=== PATIENT | male | born 2000 | race Caucasian/White ===

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

== ENCOUNTER 2021-06-29 23:15 | Emergency (ER) | payer MEDICAID, SELFPAY ==
[2021-06-29 23:16] VITALS: BP 141/96; PULSE 76; RESP 18; TEMP 36.9; O2SAT 96; BMI 29.3
--- NOTE | 2021-06-29 23:25 | EDS_ITS ---
HPI History of Present Illness Chief Complaint: Ear Problem Informant: patient Onset/Context/Timing Onset: Today Context: Gradual Onset Current Severity: Moderate Maximum Severity: Moderate Narrative Narrative: Patient presents with right ear pain that started approximately 3 hours ago. He denies any other URI symptoms. No trauma to his ear. PFSH PFSH no medical history Home Medications amoxicillin-pot clavulanate [Augmentin] 1 tab PO Q12H #20 tab 06/29/21 [Rx Last Taken Unknown] Allergy/AdvReac Type Severity Reaction Status Date / Time No Known Allergies Allergy Verified 06/29/21 23:18 ROS ROS ED Constitutional Constitutional ED: Denies chills or fever(s) Eyes Eyes: Denies change in vision ENT ENT ED: Reports ear pain right; Denies sore throat Cardiovascular Cardiovascular: Denies chest pain Respiratory/Chest Respiratory/Chest: Denies cough or dyspnea Gastrointestinal Gastrointestinal: Denies abdominal pain, diarrhea, nausea or vomiting Genitourinary Genitourinary ED: Denies dysuria Musculoskeletal Musculoskeletal: Denies back pain Integumentary Denies rash Neurologic Neurologic: Denies headache(s) or weakness Allergic/Immunologic Allergic/Immunologic ED: Denies urticaria EXAM Physical Exam Const Vital Signs: 06/29/21 23:16 Temperature 98.5 F Temperature Source Temporal Pulse Rate 76 Respiratory Rate 18 Blood Pressure 141/96 H Blood Pressure Mean 111 Pulse Ox 96 Oxygen Delivery Method Room Air Positive well nourished and well developed General Appearance ED: well developed HEENT HEENT Narrative: Right TM erythematous and bulging. Left TM normal. Posterior pharynx examination shows 2+ tonsils. Uvula midline. Mild cobblestoning noted on the posterior pharynx. Patient tolerating secretions well and has a strong voice. Eyes PERRL and EOMs intact bilaterally Neck no lymphadenopathy and supple Chest Wall inspection of chest normal and palpation of chest normal Resp normal respiratory effort and clear to auscultation bilaterally Cardio regular rate and regular rhythm GI normal to inspection, nondistended, normoactive bowel sounds and non-tender Palpation: soft Neuro oriented x3 Sensorium / Orientation: alert Psych mental status grossly normal Skin no rashes or lesions noted [facility] Treatment and Re-Evaluation Comments:: Patient has evidence of otitis media on the right. He will be treated with a course of Augmentin, first dose given here. Discharge Plan Triage Chief Complaint: Ear Problem ED Provider: Halima Car Dx/Rx/DC Orders Clinical Impression: Otitis media Instructions: ED Otitis Media Antibiotic ... Prescriptions: New amoxicillin-pot clavulanate [Augmentin] 875-125 mg tablet 1 tab PO Q12H Qty: 20 RF: 0 Primary Care Provider: Isa Joseph Referrals: Isa Joseph MD [Primary Care Provider] - 1-2 Weeks Disposition Disposition: Home, Self Care
[2021-06-29] MEDS: Amox/Clavulanate 875 MG Tablet PO (23:27)
== END 2021-06-29 23:36 | disposition home or self-care (01) ==
PROVIDERS: Emergency Provider Emergency Medicine; PCP Nurse Practitioner Family
DX: H66.91 Otitis media, unspecified, right ear (principal)
CPT/HCPCS: 99283

== ENCOUNTER 2022-08-11 19:20 | Emergency (ER) | payer MEDICAID, SELFPAY ==
[2022-08-11 19:21] VITALS: BP 158/95; PULSE 61; RESP 18; TEMP 36; O2SAT 96; BMI 28.4
--- NOTE | 2022-08-11 20:41 | ED.RN ---
PT LWBS 2040
== END 2022-08-11 20:41 | disposition left against medical advice (07) ==
PROVIDERS: PCP Nurse Practitioner Family
DX: M25.512 Pain in left shoulder (principal); Z53.21 Procedure and treatment not carried out due to patient leaving prior to being seen by health care provider

== ENCOUNTER 2024-06-07 10:53 | Day surgery (SDC) | payer MEDICAID, SELFPAY ==
[2024-06-07] VITALS (10 sets, daily range): BP systolic 140–175; BP diastolic 90–114; PULSE 79–102; RESP 16–18; TEMP 36.2–36.8; O2SAT 91–98; BMI 33.2
--- NOTE | 2024-06-07 11:03 | EKG12_ITS ---
Test Reason : pre op Blood Pressure : */* mmHG Vent. Rate : 93 BPM Atrial Rate : 93 BPM P-R Int : 132 ms QRS Dur : 80 ms QT Int : 334 ms P-R-T Axes : 30 66 7 degrees QTcB Int : 415 ms Normal sinus rhythm Normal ECG No previous ECGs available Confirmed by Chacho Gill ([id number]), graphic editor KEVIN MELCHOR ([id number]) on 06/13/2024 1:08:25 PM Referred By: Jay Naik Confirmed By: Chacho Gill
[2024-06-07] MEDS: Lactated Ringers 1,000 ML 15 ML IV (11:29)
[2024-06-07] MEDS: Cefotetan 2 GM in 0.9% Normal Saline (100mL MB+) 100 ML IV (11:29)
--- NOTE | 2024-06-07 11:32 | PCM.PRE.AN2 ---
ASA Classification* ASA Classification ASA Classification: 2 (SEE WRITTEN PRE ANESTHESIA RECORD FOR FULL ASSESSMENT) Assessment & Plan Anesthesia* Anesthesia Assessment Anesthesia Assessment: Discussed sedation and/or anesthesia options, risks, benefits, and alternatives with patient/parents/legal guardian/POA. Questions invited. The patient/parents/legal guardian/POA seems to understand and agrees to proceed with anesthesia plan. Reviewed the physical assessment, medical history, allergy history and patient home medications list prior to surgery/procedure/anesthetic and documented any changes. Performed airway and anesthesia risk assessments. 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 When Was Last Pacemaker Check QUESTION #4 FULL TEXT: You/Your Family Experience fever (hyperthermia) with Anesthesia Last Oral Intake Last Oral intake: Last Oral Intake NPO since Meds taken in AM with sips of water? Meds patient instructed to take am of surgery PONV PONV - vibrator equipment tester: PONV - vibrator equipment tester Female No 06/02/24 14:03 HX of Motion Sickness No 06/02/24 14:03 HX of N/V After Surgery No 06/02/24 14:03 Non-Smoker Yes 06/02/24 14:03 Duration of Surgery greater No 06/02/24 14:03 than 60 minutes Number of Risk Factors 1 06/02/24 14:03 PONV Score Low Risk 06/02/24 14:03 Height & Weight Height & Weight: Anesthesia: Height & Weight Height 5 ft 10 in 05/31/24 08:56 Respiratory Assessment Respiratory Assessment - vibrator equipment tester: Respiratory Tract Infection Hx - vibrator equipment tester Hx Respiratory Tract Infection No 06/02/24 14:03 STOP Sleep Apnea STOP Sleep Apnea - vibrator equipment tester: STOP Sleep Apnea - vibrator equipment tester Hx Hypertension No 06/02/24 14:03 Hx Sleep Apnea No 06/02/24 14:03 CPAP BIPAP Do you snore loudly (louder No 06/02/24 14:03 than talking or can be heard Do you often feel tired/ No 06/02/24 14:03 fatigued/ sleepy during daytime? Has anyone observed you stop Yes 06/02/24 14:03 breathing during sleep? STOP Results Negative 06/02/24 14:03 QUESTION #5 FULL TEXT : Do you snore loudly (louder than talking or can be heard through closed doors)? 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 Specify any problems Hx of Preganancy in last 3 N/A 06/02/24 14:03 Months Nurse Filling Out Transfusion DSCHRIBER 06/02/24 14:03 & Questions: Date: 06/02/24 06/02/24 14:03 Time: 14:05 06/02/24 14:03 Patient unable to answer at this time (ie. confused, unrespo /Reproduction History /Reproductive History - vibrator equipment tester: /Reproductive Hx- vibrator equipment tester Hx Now No 06/02/24 14:03 Gestational Age (in weeks): EDC: Hx Hx Para Hx Section SAB No 06/02/24 14:03 Active Medications Active Medications: Current Medications Generic Name Dose Route Start Last Admin Trade Name Freq PRN Reason Stop Dose Admin Cefotetan Disodium 2 gm/ 100 mls @ 200 mls/hr 06/07/24 12:30 06/07/24 11:29 Sodium Chloride IV 06/07/24 12:59 200 mls/hr PREOP ONE Administration Lactated Ringer's 1,000 mls @ 15 mls/hr 06/07/24 11:15 06/07/24 11:29 IV 06/13/24 00:34 15 mls/hr .Q48H ROSA Administration Protocol PFSH Medical History Depression Anxiety Substance abuse Marijuana use Alcohol use Arthritis Fatty liver Injury of head and neck Gastric reflux Former smoker Asthma Hx of sinus tachycardia History of stress test Gallbladder problem Abdominal pain Left knee pain Elevated liver enzymes Abnormal biliary HIDA scan Home Medications ?Medication ?Instructions ?Recorded ?Last Taken ?Type amitriptyline 25 mg tablet 25 mg PO QHS 05/11/24 Unknown History duloxetine 30 mg capsule,delayed 30 mg PO QDAY 05/11/24 Unknown History release fluticasone propionate 44 2 puff inhalation DAILY 05/11/24 Unknown History mcg/actuation HFA aerosol inhaler cyclobenzaprine 10 mg tablet 10 mg PO DAILY PRN muscle spasm 05/15/24 Unknown History albuterol sulfate 90 mcg/actuation 2 inh inhalation DAILY 06/02/24 Unknown History aerosol inhaler (Ventolin HFA) pantoprazole 40 mg tablet,delayed 40 mg PO QAM PRN acid reflux 06/02/24 Unknown History release Allergy/AdvReac Type Severity Reaction Status Date / Time No Known Allergies Allergy Verified 06/07/24 11:28 Family History Father Heart disease Hypertension Hypercholesteremia Social History Smoking Status: Former smoker alcohol intake: never substance use type: does not use Review of Systems (Anesthesia) ROS Narrative System reviewed and no additional complaints, except as documented.
--- OUTSIDE RECORDS SUMMARY | 2024-06-07 11:44 | XMS RPT_ITS | CCD ---
Author Organization [facility] Care Team Providers Care Kindergarten Assistant Name Role Phone FRANCISCA FRENCH Primary Care Physician ( [phone] DEEP HEALTH AND SAFETY DIRECTOR-FIELD SERVICE COORDINATOR, CORRINA Luna Primary Care Physi verna DEEP HEALTH AND SAFETY DIRECTOR-FIELD SERVICE COORDINATOR, CORRINA Luna Primary Care Un available DEEP HEALTH AND SAFETY DIRECTOR-FIELD SERVICE COORDINATOR, CORRINA Luna Attending Un available DEEP HEALTH AND SAFETY DIRECTOR-FIELD SERVICE COORDINATOR, CORRINA Luna Attending Un available DEEP HEALTH AND SAFETY DIRECTOR-FIELD SERVICE COORDINATOR, CORRINA A Primary Care Un available YULIA HAYES MD Attending Unavail able DEEP HEALTH AND SAFETY DIRECTOR-FIELD SERVICE COORDINATOR, CORRINA A Primary Care Un available DEEP HEALTH AND SAFETY DIRECTOR-FIELD SERVICE COORDINATOR, CORRINA Luna Attending Un available DEEP HEALTH AND SAFETY DIRECTOR-FIELD SERVICE COORDINATOR, CORRINA A Primary Care Un available DEEP HEALTH AND SAFETY DIRECTOR-FIELD SERVICE COORDINATOR, CORRINA A Primary Care Un available DEEP HEALTH AND SAFETY DIRECTOR-FIELD SERVICE COORDINATOR, CORRINA Luna Attending Un available DEEP HEALTH AND SAFETY DIRECTOR-FIELD SERVICE COORDINATOR, CORRINA A Primary Care Un available [facility] [employer] SAFET[employer] DIRECTOR-FIELD SERVICE COORDINATOR, JEANNA Attending Unava ilable Medications Current Medications Medication Drug Class(es) Dates Sig (Normalized) Sig (Original) amitriptyline hydrochloride 25 mg oral tablet (10 sources) Tricyclic Antidepressant Start: 02-09-2024 End: 02-03-2025 amitriptyline 25 mg oral tablet Dose : 25 mg = 1 tab(s), Oral, qHS, # 90 tab(s), 3 Refill(s), Pharmacy: [facility]/pharmacy #[id number], Depression Anxiety, 177.8, cm, 02/09/24 10:03:00 EDT, Height, kg, 02/09/24 10:03:00 EDT, Dosing Weight Start Date: 02/09/24 Stop Date: 02/03/25 Status: Ordered Start: 07-03-2022 End: 12-30-2022 amitriptyline 25 mg oral tab let Dose : 25 mg = 1 tab(s), Oral, qHS, # 90 tab(s), 1 Refill(s), Pharmacy: [facility]/pharmacy #[id number], Depression Anxiety, 177.8, cm, 07/03/22 11:29:00 EST, Height Start Date: 07/03/22 Stop Date: 12/30/22 Status: Ordered benzonatate 100 mg oral capsule (3 sources) Non-narcotic Antitussive Start: 09-18-2022 take 1 capsule by mouth three times daily benzonatate 100 mg oral capsule TAKE 1 CAPSULE BY MOUTH 3 TIMES A DAY FOR 7 DAY Start Date: 09/18/22 Status: Ordered Start: 09-09-2022 End: 09-16-2022 Tessalon Perles 100 mg oral capsule Dose : 100 mg = 1 cap(s), Oral, TID, X 7 day(s), # 21 cap(s), 0 Refill(s), 09/16/22 16:27:00 EST, Cough Start Date: 09/09/22 Stop Date: 09/16/22 Status: Ordered cyclobenzaprine hydrochloride 10 mg oral tablet (7 sources) Muscle Relaxant Start: 02-09-2024 End: 04-09-2024 cyclobenzaprine 10 mg oral tablet Dose : 10 mg = 1 tab(s), Oral, TID, PRN Pain, TAKE 1 TABLET BY MOUTH THREE TIMES A DAY NEEDED X10 DAY(S)FOR MUSCLE SPASM, X 30 day(s), # 30 tab(s), 1 Refill(s), 04/09/24 10:48:00 AM EDT, Pharmacy: [facility]/pharmacy #[id number], 177.8, cm, 02/09/24 10:03:00 EDT, Height, kg, 02/09/24 10:03:00 EDT, Dosing Weight Start Date: 02/09/24 Stop Date: 04/09/24 Status: Ordered Start: 09-09-2022 End: 09-16-2022 cyclobenzaprine 10 mg oral t ablet Dose : 10 mg = 1 tab(s), Oral, TID, PRN for muscle spasm, # 21 tab(s), 0 Refill(s) Start Date: 09/09/22 Stop Date: 09/16/22 Status: Ordered Start: 05-06-2022 End: 05-13-2022 cyclobenzaprine 5 mg oral ta blet Dose : 5 mg = 1 tab(s), Oral, TID, X 7 day(s), # 21 tab(s), 0 Refill(s), 05/13/22 12:00:00 EDT Start Date: 05/06/22 Stop Date: 05/13/22 Status: Ordered diclofenac potassium 50 mg oral tablet (1 source) Nonsteroidal Anti-inflammatory Drug Start: 09-08-2021 End: 09-18-2021 diclofenac potassium 50 mg oral tablet Dose : 50 mg = 1 tab(s), Oral, TID, PRN as needed for pain, X 10 day(s), # 30 tab(s), 0 Refill(s), 09/18/21 11:09:00 EST, Pharmacy: [facility]/pharmacy #[id number], 177, cm, 09/08/21 10:46:00 EST, Height, kg, 09/08/21 10:46:00 EST, Dosing Weight Start Date: 09/08/21 Stop Date: 09/18/21 Status: Ordered DULoxetine 30 mg delayed release oral capsule (4 sources) Serotonin and Norepinephrine Reuptake Inhibitor Start: 02-09-2024 End: 02-03-2025 Cymbalta 30 mg oral delayed release capsule Dose : 30 mg = 1 cap(s), Oral, qDay, # 90 cap(s), 3 Refill(s), Pharmacy: [facility]/pharmacy #[id number], Depression Chest discomfort, 177.8, cm, 02/09/24 10:03:00 EDT, Height, kg, 02/09/24 10:03:00 EDT, Dosing Weight Start Date: 02/09/24 Stop Date: 02/03/25 Status: Ordered FLUoxetine 20 mg oral capsule (1 source) Serotonin Reuptake Inhibitor Start: 10-28-2022 End: 04-26-2023 FLUoxetine 20 mg oral capsule Dose : 20 mg = 1 cap(s), Oral, qDay, # 30 cap(s), 5 Refill(s), Pharmacy: [facility]/pharmacy #[id number], Polyarthralgia Depression, 177.8, cm, 10/28/22 7:33:00 EDT, Height Start Date: 10/28/22 Stop Date: 04/26/23 Status: Ordered 120 actuat fluticasone propionate 0.044 mg/actuat metered dose inhaler (5 sources) Corticosteroid Start: 02-09-2024 End: 08-07-2024 take 2 puff(s) by inhalation twice daily fluticasone 44 mcg/inh inhalation aerosol 2 puff(s), Inhalation, BID, # 1 EA, 5 Refill(s), Pharmacy: [facility]/pharmacy #[id number], Chronic shortness of breath, 177.8, cm, 02/09/24 10:03:00 EDT, Height, kg, 02/09/24 10:03:00 EDT, Dosing Weight Start Date: 02/09/24 Stop Date: 08/07/24 Status: Ordered Start: 10-28-2022 End: 04-26-2023 take 2 puff(s) by inhalation twice daily fluticasone CFC free 44 mcg/inh inhalation aerosol 2 puff(s), Inhalation, BID, # 1 EA, 5 Refill(s), Pharmacy: [facility]/pharmacy #[id number], Chronic shortness of breath, 177.8, cm, 10/28/22 7:33:00 EDT, Height Start Date: 10/28/22 Stop Date: 04/26/23 Status: Ordered Hydrocortisone (1 source) Corticosteroid Start: 07-03-2022 End: 07-17-2022 hydrocortisone 1% topical cream Apply 1 colten, Topical, BID, X 14 day(s), # 45 gram(s), 0 Refill(s), Pharmacy: [facility]/pharmacy #[id number], Cream, 177.8, cm, 07/03/22 11:29:00 EST, Height, 84 Start Date: 07/03/22 Stop Date: 07/17/22 Status: Ordered ibuprofen 200 mg oral tablet (11 sources) Nonsteroidal Anti-inflammatory Drug Start: 07-03-2022 take 3 tablets by mouth every six hours as needed for pain ibuprofen 200 mg oral tablet TAKE 3 TABLETS BY MOUTH EVERY 6 HOURS FOR 7 DAYS NEEDED FOR PAIN Start Date: 07/03/22 Status: Ordered Start: 05-06-2022 End: 05-13-2022 Motrin Migraine Pain 200 mg oral tablet Dose : 600 mg = 3 tab(s), Oral, q6h, PRN for pain, X 7 day(s), # 24 tab(s), 0 Refill(s), 05/13/22 12:01:00 EDT Start Date: 05/06/22 Stop Date: 05/13/22 Status: Ordered lidocaine 0.05 mg/mg medicated patch (4 sources) Antiarrhythmic, Amide Local Anesthetic Start: 09-09-2022 lidocaine 5% topical patch Apply 1 patch(es), Topical, qDay, remove patches after 12 hours, # 30 patch(es), 0 Refill(s), 82 Start Date: 09/09/22 Status: Ordered Start: 08-12-2022 End: 08-22-2022 lidocaine 5% topical patch A pply 1 patch(es), Topical, Daily, X 10 day(s), # 10 patch(es), 0 Refill(s), 84.1 Start Date: 08/12/22 Stop Date: 08/22/22 Status: Ordered naproxen 500 mg oral tablet (1 source) Nonsteroidal Anti-inflammatory Drug Start: 03-16-2023 End: 03-23-2023 naproxen 500 mg oral tablet Dose : 500 mg = 1 tab(s), Oral, BID, PRN as needed for pain, prn with food, # 20 tab(s), 0 Refill(s), 03/23/23 4:49:00 PM EDT Start Date: 03/16/23 Stop Date: 03/23/23 Status: Ordered penicillin v potassium 500 mg oral tablet (1 source) Start: 03-16-2023 End: 03-30-2023 penicillin V potassium 500 mg oral tablet Dose : 500 mg = 1 tab(s), Oral, QID, X 14 day(s), # 56 tab(s), 0 Refill(s), 03/30/23 4:48:00 PM EDT, 86.4 Start Date: 03/16/23 Stop Date: 03/30/23 Status: Ordered SUMAtriptan 50 mg oral tablet (6 sources) Serotonin-1b and Serotonin-1d Receptor Agonist Start: 07-03-2022 SUMAtriptan 50 mg oral tablet Dose : 50 mg = 1 tab(s), Oral, qDay, PRN as needed for migraine headache, 1 tab onset , may repeat in 2 hrs. MAX 4 tab(s)/24hrs, # 18 tab(s), 0 Refill(s) Start Date: 07/03/22 Status: Ordered Vitamin D2 1.25 mg (50,000 intl units) oral capsule (7 sources) Start: 02-09-2024 Vitamin D2 1.2 5 mg (50,000 intl units) oral capsule Dose : 50,000 International_Unit = 1 cap(s), Oral, qWeek, # 12 cap(s), 0 Refill(s), [id number], Vitamin D deficiency, 177.8, cm, 02/09/24 10:03:00 EDT, Height, kg, 02/09/24 10:03:00 EDT, Dosing Weight Start Date: 02/09/24 Status: Ordered Start: 08-17-2022 End: 11-15-2022 Vitamin D2 1.25 mg (50,000 i ntl units) oral capsule Dose : 50,000 International_Unit = 1 cap(s), Oral, qWeek, # 13 cap(s), 0 Refill(s), [id number], Rib pain on left side Vitamin D deficiency, 177.8, cm, 08/17/22 14:05:00 EST, Height Start Date: 08/17/22 Stop Date: 11/15/22 Status: Ordered Completed/Discontinued Medications Medication Drug Class(es) Dates Sig (Normalized) Sig (Original) albuterol MDI (90 mcg/inh) CFC free inhalation aerosol (6 sources) Start: 07-21-2023 End: 10-19-2023 take 2 puff(s) by inhalation every four hours as needed for wheezing albuterol MDI (90 mcg/inh) CFC free inhalation aerosol 2 puff(s), Inhalation, q4h, PRN as needed for wheezing, # 18 gram(s), 2 Refill(s), Pharmacy: [facility]/pharmacy #[id number], Cough Wheezing, 177.8, cm, 07/21/23 16:43:00 EST, Height, kg, 07/21/23 16:43:00 EST, Dosing Weight Start Date: 07/21/23 Stop Date: 10/19/23 Status: Ordered Start: 10-28-2022 End: 01-26-2023 take 2 puff(s) by inhalation every four hours as needed for wheezing albuterol MDI (90 mcg/inh) CFC free inhalation aerosol 2 puff(s), Inhalation, q4h, PRN as needed for wheezing, # 18 gram(s), 2 Refill(s), Pharmacy: [facility]/pharmacy #[id number], Cough Wheezing, 177.8, cm, 10/28/22 7:33:00 EDT, Height, kg, 10/28/22 7:33:00 EDT, Dosing Weight Start Date: 10/28/22 Stop Date: 01/26/23 Status: Ordered Start: 09-18-2022 End: 10-18-2022 take 2 puff(s) by inhalation every four hours as needed for wheezing albuterol MDI (90 mcg/inh) CFC free inhalation aerosol 2 puff(s), Inhalation, q4h, PRN as needed for wheezing, # 18 gram(s), 0 Refill(s), Pharmacy: [facility]/pharmacy #[id number], Cough Wheezing, 177.8, cm, 09/18/22 10:01:00 EST, Height Start Date: 09/18/22 Stop Date: 10/18/22 Status: Ordered predniSONE 10 mg oral tablet (4 sources) Start: 09-18-2022 End: 09-26-2022 prednisone 10mg tab (TAPER) Dose : 10 mg = 1 tab(s), Oral, qDay, Take 4 tabs (40mg) days 1-2, take 3 tabs (30mg) days 3-4, take 2 tabs (20mg) days 5-6, take 1 tab (10mg) days 7-8 Take with food/meal, # 20 tab(s), 0 Refill(s), Pharmacy: [facility]/pharmacy #[id number], Cough, 177.8, cm,... Start Date: 09/18/22 Stop Date: 09/26/22 Status: Ordered Start: 07-03-2022 End: 07-15-2022 prednisone 10mg tab (TAPER) Taper 40-30-20-10 x 3 days each dose, Oral, qDay, Take with food/meal, # 30 tab(s), 0 Refill(s), Pharmacy: [facility]/pharmacy #[id number], Polyarthralgia, 177.8, cm, 07/03/22 11:29:00 EST, Height Start Date: 07/03/22 Stop Date: 07/15/22 Status: Ordered Problems Problem Classification Problem Date Documented Date Episodic/Chronic Abdominal pain (1 source) Abdominal pain; Translations: [Unspecified abdominal pain] Onset: 03-26-2024 Episodic Anxiety disorders (12 sources) Anxiety 11-18-2020 Chronic Disorders of teeth and jaw (1 source) Disorder of teeth AND/OR supporting structures; Translations: [Other specified disorders of teeth and supporting structures] Onset: 03-16-2023 Episodic Essential hypertension (1 source) Essential hypertension; Translations: [Essential (primary) hypertension] Onset: 03-16-2023 Chronic Genitourinary symptoms and ill-defined conditions (12 sources) Difficulty passing urine 02-19-2021 Episodic Mood disorders (4 sources) Depressive disorder 07-21-2023 Chronic Nonspecific chest pain (4 sources) Chest discomfort 07-21-2023 Episodic Other circulatory disease (12 sources) Elevated blood pressure 02-19-2021 Episodic Other lower respiratory disease (1 source) Cough; Translations: [Cough] Onset: 09-09-2022 Episodic Other lower respiratory disease (1 source) Pleuritic pain; Translations: [Pleurodynia] Episodic Other lower respiratory disease (6 sources) Rib pain 09-18-2022 Episodic Other lower respiratory disease (4 sources) Dyspnea 07-21-2023 Episodic Other nervous system disorders (12 sources) Intolerant of heat 11-18-2020 Episodic Other non-traumatic joint disorders (10 sources) Multiple joint pain 07-03-2022 Episodic Other non-traumatic joint disorders (1 source) Shoulder joint pain; Translations: [Pain in unspecified shoulder] Onset: 08-12-2022 Episodic Other non-traumatic joint disorders (1 source) Pain in left knee; Translations: [Pain of left knee joint] Episodic Other non-traumatic joint disorders (6 sources) Knee pain 09-18-2022 Episodic Other nutritional; endocrine; and metabolic disorders (12 sources) Developmental delay 11-18-2020 Episodic Residual codes; unclassified (11 sources) Memory impairment 12-22-2021 Episodic Syncope (12 sources) Syncope 02-18-2021 Episodic Results Test Name Value Interpretation Reference Range Facility [facility] 04-20-2024 Bili Indirect 0.4 mg/dL Normal [facility] Comment on above: Performed By: #### H FP, LIP #### [address] [address] Albumin Level 4.7 G/dL Normal 3.5-5.0 [facility] Comment on above: Performed By: #### H FP, LIP #### [address] [address] Albumin/Globulin [Mass ratio] 1.5 {ratio} Normal 1.1-2.5 [facility] Comment on above: Performed By: #### H FP, LIP #### [address] [address] ALP [Catalytic activity/Vol] 76 U/L Normal 40-135 [facility] Comment on above: Performed By: #### H FP, LIP #### [address] [address] ALT [Catalytic activity/Vol] 145 U/L High 16-63 [facility] Comment on above: Performed By: #### H FP, LIP #### [address] [address] AST [Catalytic activity/Vol] 46 U/L High 10-40 [facility] Comment on above: Performed By: #### H FP, LIP #### [address] [address] Bili Direct 0.1 mg/dL Normal 0.0-0.2 [facility] Comment on above: Result Comment: Use of this assay is not recommended for patients undergoing treatment with eltrombopag due to the potential for falsely elevated results. Performed By: #### H FP, LIP #### [address] [address] Bili Total 0.5 mg/dL Normal 0.2-1.0 [facility] Comment on above: Result Comment: Use of this assay is not recommended for patients undergoing treatment with eltrombopag due to the potential for falsely elevated results. Performed By: #### H FP, LIP #### [address] [address] Globulin 3.2 G/dL Normal [facility] Comment on above: Performed By: #### H FP, LIP #### [address] [address] Total Protein 7.9 G/dL Normal 6.4-8.2 [facility] Comment on above: Performed By: #### H FP, LIP #### [address] [address] LIPon 04-20-2024 Lipase Level 27 U/L Normal 16-77 [facility] Comment on above: Performed By: #### H FP, LIP #### [address] [address] [place] HEPATOBILIARY DUCT SYSTEM IMAGINGon 03-27-2024 MI HEPATOBILIARY DUCT SYSTEM IMAGING ORIGINAL EXAMINATION: HIDA03/27/2024 1:32 pm TECHNIQUE: The patient received an intravenous injection of 5.3 mCi of Tc-99m mebrofenin (Choletec). Sequential planar images of the upper abdomen were then acquired over the next 60 minutes. An intravenous infusion of the cholecystokinin (CCK) analogue, Kinevac was then administered followed by an additional period of imaging. Computer quantification of gallbladder emptying was performed. COMPARISON: Ultrasound abdomen 02/14/2024 HISTORY: ORDERING SYSTEM PROVIDED HISTORY: Reason for Exam: gallbladder sludge, right upper abd quadrant pain EPIGASTRIC PAINELVATED ALT FINDINGS: There is prompt accumulation of activity within the liver and normal subsequent excretion via the biliary ductal system into the small bowel. The gallbladder first visualizes at about 15 minutes after radiopharmaceutical injection. Subsequent filling of the gallbladder is somewhat slow, until about 90 minutes where prominent activity seen. After stimulation, there is essentially no contraction of gallbladder or anterograde transit of activity into the small bowel. The gallbladder ejection fraction is calculated to be 8 % (normal above 35%). IMPRESSION: 1. Findings above suggesting chronic cholecystitis with delayed filling of the gallbladder and an ejection fraction of 8% after Kinevac stimulation. 2. No evidence of acute cholecystitis. 3. Patent common bile duct. 4. Normal hepatic function. I have personally reviewed the images of this examination and agree with the resident's findings and interpretation. Interpreted by: Gabriel Nielsen DO Preliminary Report By: Chacho Angelo Electronically signed By Gabriel Nielsen DO Dictated Date: 03/27/2024 1:36:37 PM Prelim Date: 03/27/2024 2:06:06 PM Sign Date: 03/27/2024 2:06:06 PM Ordering Provider: CORRINA Bell [facility] ([place]) .Auto Diffon 03-26-2024 Basophil, Absolute 0.1 10 3/mcL Normal 0.0-0.2 [facility] ([place]) Comment on above: Performed By: #### G FR, ANEU, LIP, CMP, CBC, ADMURPHY CARTER #### [address] [address] Basophils/100 WBC (Bld) 0.8 % Normal 0.0-2.5 [facility] ([place]) Comment on above: Performed By: #### G FR, ANEU, LIP, CMP, CBC, ADMURPHY CARTER #### [address] [address] Eosinophil, Absolute 0.1 10 3/mcL Normal 0.0-0.4 [facility] ([place]) Comment on above: Performed By: #### G FR, ANEU, LIP, CMP, CBC, ADMURPHY CARTER #### [address] [address] Eosinophils/100 WBC (Bld) 1.8 % Normal 0.0-7.0 [facility] ([place]) Comment on above: Performed By: #### G FR, ANEU, LIP, CMP, CBC, MURPHY CRONIN #### [address] [address] Lymphocyte, Absolute 1.6 10 3/mcL Normal 0.8-3.9 [facility] ([place]) Comment on above: Performed By: #### G FR, ANEU, LIP, CMP, CBC, ADMD EMMAW #### [address] [address] Lymphocytes/100 WBC (Bld) 24.4 % Normal 10.0-50.0 [facility] ([place]) Comment on above: Performed By: #### G FR, ANEU, LIP, CMP, CBC, MURPHY CRONIN #### [address] [address] Monocyte, Absolute 0.6 10 3/mcL Normal 0.2-1.0 [facility] ([place]) Comment on above: Performed By: #### G FR, ANEU, LIP, CMP, CBC, MURPHY CRONIN #### [address] [address] Monocytes/100 WBC (Bld) 8.7 % Normal 1.7-13.0 [facility] ([place]) Comment on above: Performed By: #### G FR, ANEU, LIP, CMP, CBC, MURPHY CRONIN #### [address] [address] Neutrophils/100 WBC (Bld) 64.3 % Normal 37.0-80.0 [facility] ([place]) Comment on above: Performed By: #### G FR, ANEU, LIP, CMP, CBCROSEANNE MDW #### [address] [address] .GFRon 03-26-2024 GFR 86 ml/min/1.73sqm Normal [facility] ([place]) Comment on above: Result Comment: GFR Population mean for , Non- Americans Ages 20-29 = 116 mL/min/1.73 sq.m. Ages 30-39 = 107 mL/min/1.73 sq.m. Ages 40-49 = 99 mL/min/1.73 sq.m. Ages 50-59 = 93 mL/min/1.73 sq.m. Ages 60-69 = 85 mL/min/1.73 sq.m. Ages 70+ = 75 mL/min/1.73 sq.m. Chronic Kidney Disease: Less than 60 mL/min/1.73 square meters End Stage Renal Disease: Less than 15 mL/min/1.73 square meters Performed By: #### G FR, ANEU, LIP, CMP, CBC, MURPHY CRONIN #### [address] [address] GFR Non- 71 ml/min/1.73sqm Normal [facility] ([place]) Comment on above: Result Comment: GFR Population mean for , Non- Americans Ages 20-29 = 116 mL/min/1.73 sq.m. Ages 30-39 = 107 mL/min/1.73 sq.m. Ages 40-49 = 99 mL/min/1.73 sq.m. Ages 50-59 = 93 mL/min/1.73 sq.m. Ages 60-69 = 85 mL/min/1.73 sq.m. Ages 70+ = 75 mL/min/1.73 sq.m. Chronic Kidney Disease: Less than 60 mL/min/1.73 square meters End Stage Renal Disease: Less than 15 mL/min/1.73 square meters Performed By: #### G FR, ANEU, LIP, CMP, CBC, MURPHY CRONIN #### [address] [address] .MDWon 03-26-2024 Monocyte Distribution Width 18.41 Normal 0.00-20.00 [facility] ([place]) Comment on above: Result Comment: For ED adult patients suspected of sepsis, MDW<=20.0 does not rule out sepsis or risk of sepsis Performed By: #### G FR, ANEU, LIP, CMP, CBC, MURPHY CRONIN #### [address] [address] .NEUABSon 03-26-2024 Neutrophil, Absolute 4.3 10 3/mcL Normal 2.9-6.2 [facility] ([place]) Comment on above: Performed By: #### G FR, ANEU, LIP, CMP, CBC, MURPHY CRONIN #### [address] [address] CBCon 03-26-2024 Erythrocyte distribution width (RBC) [Ratio] 13.1 % Normal 11.5-14.5 [facility] ([place]) Comment on above: Performed By: #### G FR, ANEU, LIP, CMP, CBC, MURPHY CRONIN #### [address] [address] Hematocrit (Bld) [Volume fraction] 42.8 % Normal 42.0-52.0 [facility] ([place]) Comment on above: Performed By: #### G FR, ANEU, LIP, CMP, CBC, MURPHY CRONIN #### [place] [address] Hgb 14.6 G/dL Normal 14.0-18.0 [facility] ([place]) Comment on above: Performed By: #### G FR, ANEU, LIP, CMP, CBC, MURPHY CRONIN #### [place] [address] MCH (RBC) [Entitic mass] 29.7 pg Normal 27.0-31.2 [facility] ([place]) Comment on above: Performed By: #### G FR, ANEU, LIP, CMP, CBC, MURPHY CRONIN #### [place] [address] MCHC 34.1 G/dL Normal 31.8-35.4 [facility] ([place]) Comment on above: Performed By: #### G FR, ANEU, LIP, CMP, CBC, MURPHY CRONIN #### [address] [address] MCV (RBC) [Entitic vol] 87.0 fL Normal 80.0-94.0 [facility] ([place]) Comment on above: Performed By: #### G FR, ANEU, LIP, CMP, CBC, MURPHY CRONIN #### [address] [address] Platelet 199 10 3/mcL Normal 130-400 [facility] ([place]) Comment on above: Performed By: #### G FR, ANEU, LIP, CMP, CBC, ROSEANNE, MURPHY #### [place] [address] Platelet mean volume (Bld) [Entitic vol] 7.5 fL Normal 7.4-10.4 [facility] ([place]) Comment on above: Performed By: #### G FR, ANEU, LIP, CMP, ROSEANNE KONG MDW #### [address] [address] RBC 4.92 10 6/mcL Normal 4.04-6.13 [facility] ([place]) Comment on above: Performed By: #### G FR, ANEU, LIP, CMP, ROSEANNE KONG MDW #### [address] [address] WBC 6.7 10 3/mcL Normal 4.6-10.8 [facility] ([place]) Comment on above: Performed By: #### G FR, ANEU, LIP, CMP, ROSEANNE KONG MDW #### [address] [address] CMPon 03-26-2024 Albumin Level 4.3 G/dL Normal 3.5-5.0 [facility] ([place]) Comment on above: Performed By: #### G FR, ANEU, LIP, CMP, ROSEANNE KONG MDW #### [address] [address] Albumin/Globulin [Mass ratio] 1.3 {ratio} Normal 1.1-2.5 [facility] ([place]) Comment on above: Performed By: #### G FR, ANEU, LIP, CMP, ROSEANNE KONG MDW #### [address] [address] ALP [Catalytic activity/Vol] 68 U/L Normal 40-135 [facility] ([place]) Comment on above: Performed By: #### G FR, ANEU, LIP, CMP, ROSEANNE KONG MDW #### [address] [address] ALT [Catalytic activity/Vol] 132 U/L High 16-63 [facility] ([place]) Comment on above: Performed By: #### G FR, ANEU, LIP, CMP, ROSEANNE KONG MDW #### [address] [address] AST [Catalytic activity/Vol] 43 U/L High 10-40 [facility] ([place]) Comment on above: Performed By: #### G FR, ANEU, LIP, CMP, CBCROSEANNE MDW #### [address] [address] Bili Total 0.7 mg/dL Normal 0.2-1.0 [facility] ([place]) Comment on above: Result Comment: Use of this assay is not recommended for patients undergoing treatment with eltrombopag due to the potential for falsely elevated results. Performed By: #### G FR, ANEU, LIP, CMP, LUANN, MURPHY CRONIN #### [address] [address] BUN/Creatinine Ratio 12 ratio Normal 7-27 [facility] ([place]) Comment on above: Performed By: #### G FR, ANEU, LIP, CMP, ROSEANNE KONG MDW #### [address] [address] Calcium [Mass/Vol] 9.3 mg/dL Normal 8.4-10.2 [facility] ([place]) Comment on above: Performed By: #### G FR, ANEU, LIP, CMP, ROSEANNE KONG MDW #### [address] [address] Chloride [Moles/Vol] 103 mmol/L Normal 98-107 [facility] ([place]) Comment on above: Performed By: #### G FR, ANEU, LIP, CMP, CBC, MURPHY CRONIN #### [address] [address] CO2 [Moles/Vol] 31 mmol/L High 22-29 [facility] [facility] ([place]) Comment on above: Performed By: #### G FR, ANEU, LIP, CMP, LUANN, MURPHY CRONIN #### [address] [address] Creatinine [Mass/Vol] 1.26 mg/dL Normal 0.70-1.30 [facility] ([place]) Comment on above: Performed By: #### G FR, ANEU, LIP, CMP, LUANN, MURPHY CRONIN #### [address] [address] Electrolyte Balance 6.0 mEq/L Normal 4.0-15.0 [facility] ([place]) Comment on above: Performed By: #### G FR, ANEU, LIP, CMP, CBC, MURPHY CRONIN #### [address] [address] Globulin 3.3 G/dL Normal [facility] ([place]) Comment on above: Performed By: #### G FR, ANEU, LIP, CMP, ROSEANNE KONG MDW #### [address] [address] Glucose [Mass/Vol] 103 mg/dL Normal 70-105 [facility] ([place]) Comment on above: Performed By: #### G FR, ANEU, LIP, CMP, LUANN, MURPHY CRONIN #### [address] [address] Potassium [Moles/Vol] 3.5 mmol/L Normal 3.5-5.1 [facility] ([place]) Comment on above: Performed By: #### G FR, ANEU, LIP, CMP, LUANN, MURPHY CRONIN #### [address] [address] Sodium [Moles/Vol] 140 mmol/L Normal 136-145 [facility] ([place]) Comment on above: Performed By: #### G FR, ANEU, LIP, CMP, ROSEANNE KONG MDW #### [address] [address] Total Protein 7.6 G/dL Normal 6.4-8.2 [facility] ([place]) Comment on above: Performed By: #### G FR, ANEU, LIP, CMP, CBC, MURPHY CRONIN #### [address] [address] Urea nitrogen [Mass/Vol] 15 mg/dL Normal 7-18 [facility] ([place]) Comment on above: Performed By: #### G FR, ANEU, LIP, CMP, CBC, MD ROSEANNEW #### [place] [id number] [place] [id number] LABORATORYOrdered By: SYSTEM SYSTEM on 03-26-2024 Albumin BCP dye [Mass/Vol] 4.3 G/dL Normal 3.5 - 5.0 G/dL AO ADM SS Albumin/Globulin [Mass ratio] 1.3 {ratio} Normal 1.1 - 2.5 ratio AO ADM SS ALP [Catalytic activity/Vol] 68 U/L Normal 40 - 135 U/L AO ADM SS ALT With P-5'-P [Catalytic activity/Vol] 132 U/L High 16 - 63 U/L AO ADM SS AST With P-5'-P [Catalytic activity/Vol] 43 U/L High 10 - 40 U/L AO ADM SS Basophil, Absolute 0.1 103/mcL Normal 0.0 - 0.2 10^3/mcL AO Workflow SS Basophils/100 WBC (Bld) 0.8 % Normal 0.0 - 2.5 % AO Workflow SS Bilirubin [Mass/Vol] 0.7 mg/dL Normal 0.2 - 1 .0 mg/dL AO ADM SS Comment on above: Interpretive Data: U se of this assay is not recommended for patients undergoing treatment with eltrombopag due to the potential for falsely elevated results. Calcium [Mass/Vol] 9.3 mg/dL Normal 8.4 - 10. 2 mg/dL AO ADM SS Chloride [Moles/Vol] 103 mmol/L Normal 98 - 10 7 mmol/L AO ADM SS CO2 [Moles/Vol] 31 mmol/L High 22 - 29 mmol/L AO ADM SS Creatinine [Mass/Vol] 1.26 mg/dL Normal 0.70 - 1.30 mg/dL AO ADM SS Electrolyte Balance 6.0 mEq/L Normal 4.0 - 15 .0 mEq/L AO ADM SS Eosinophil, Absolute 0.1 103/mcL Normal 0.0 - 0 .4 10^3/mcL AO Workflow SS Eosinophils/100 WBC (Bld) 1.8 % Normal 0.0 - 7.0 % AO Workflow SS Erythrocyte distribution width (RBC) [Ratio] 13.1 % Normal 11.5 - 14.5 % AO Workflow SS GFR/1.73 sq M.predicted among blacks MDRD (S/P/Bld) [Vol rate/Area] 86 ml/min/1.73sqm Invalid Interpretation Code AO Chemistry S Comment on above: Interpretive Data: GFR Population mean for , Non- Americans Ages 20-29 = 116 mL/min/1.73 sq.m. Ages 30-39 = 107 mL/min/1.73 sq.m. Ages 40-49 = 99 mL/min/1.73 sq.m. Ages 50-59 = 93 mL/min/1.73 sq.m. Ages 60-69 = 85 mL/min/1.73 sq.m. Ages 70+ = 75 mL/min/1.73 sq.m. Chronic Kidney Disease: Less than 60 mL/min/1.73 square meters End Stage Renal Disease: Less than 15 mL/min/1.73 square meters GFR/1.73 sq M.predicted among non-blacks MDRD (S/P/Bld) [Vol rate/Area] 71 ml/min/1.73sqm Invalid Interpretation Code AO Chemistry S Comment on above: Interpretive Data: GFR Population mean for , Non- Americans Ages 20-29 = 116 mL/min/1.73 sq.m. Ages 30-39 = 107 mL/min/1.73 sq.m. Ages 40-49 = 99 mL/min/1.73 sq.m. Ages 50-59 = 93 mL/min/1.73 sq.m. Ages 60-69 = 85 mL/min/1.73 sq.m. Ages 70+ = 75 mL/min/1.73 sq.m. Chronic Kidney Disease: Less than 60 mL/min/1.73 square meters End Stage Renal Disease: Less than 15 mL/min/1.73 square meters Globulin 3.3 G/dL Invalid Interpretation Code AO ADM SS Glucose [Mass/Vol] 103 mg/dL Normal 70 - 105 mg/dL AO ADM SS Hematocrit (Bld) [Volume fraction] 42.8 % Normal 42.0 - 52.0 % AO Workflow SS Hemoglobin (Bld) [Mass/Vol] 14.6 G/dL Normal 14.0 - 18.0 G/dL AO Workflow SS Lipase [Catalytic activity/Vol] 26 U/L Normal 16 - 77 U/L AO ADM SS Lymphocyte, Absolute 1.6 103/mcL Normal 0.8 - 3 .9 10^3/mcL AO Workflow SS Lymphocytes/100 WBC (Bld) 24.4 % Normal 10.0 - 50.0 % AO Workflow SS MCH (RBC) [Entitic mass] 29.7 pg Normal 27.0 - 31.2 pg AO Workflow SS MCHC 34.1 G/dL Normal 31.8 - 35.4 G/dL AO Workflow SS MCV (RBC) [Entitic vol] 87.0 fL Normal 80.0 - 94.0 fL AO Workflow SS Monocyte distribution width Auto (Bld) [Entitic vol] 18.41 1 Normal 0.00 - 20.00 AO Workflow SS Comment on above: Result Comment: For ED adult patients suspected of sepsis, MDW<=20.0 does not rule out sepsis or risk of sepsis Monocyte, Absolute 0.6 103/mcL Normal 0.2 - 1.0 10^3/mcL AO Workflow SS Monocytes/100 WBC (Bld) 8.7 % Normal 1.7 - 13.0 % AO Workflow SS Neutrophil, Absolute 4.3 103/mcL Normal 2.9 - 6 .2 10^3/mcL AO Workflow SS Neutrophils/100 WBC (Bld) 64.3 % Normal 37.0 - 80.0 % AO Workflow SS Platelet mean volume (Bld) [Entitic vol] 7.5 fL Normal 7.4 - 10.4 fL AO Workflow SS Platelets (Bld) [#/Vol] 199 103/mcL Normal 130 - 400 10^3/mcL AO Workflow SS Potassium [Moles/Vol] 3.5 mmol/L Normal 3.5 - 5.1 mmol/L AO ADM SS Protein [Mass/Vol] 7.6 G/dL Normal 6.4 - 8.2 G/dL AO ADM SS RBC (Bld) [#/Vol] 4.92 106/mcL Normal 4.04 - 6.1 3 10^6/mcL AO Workflow SS Sodium [Moles/Vol] 140 mmol/L Normal 136 - 145 mmol/L AO ADM SS Urea nitrogen [Mass/Vol] 15 mg/dL Normal 7 - 18 mg/dL AO ADM SS Urea nitrogen/Creatinine [Mass ratio] 12 ratio Normal 7 - 27 ratio AO ADM SS WBC (Bld) [#/Vol] 6.7 103/mcL Normal 4.6 - 10.8 10^3/mcL AO Workflow SS LIPon 03-26-2024 Lipase Level 26 U/L Normal 16-77 [facility] ([place]) Comment on above: Performed By: #### G FR, ANEU, LIP, CMP, CBC, ADIFF, MDW #### [address] [address] US ABDOMEN LIMITEDon 024 US ABDOMEN LIMITED ORIGINAL EXAMINATION: RIGHT UPPER QUADRANT ULTRASOUND 02/14/2024 11:43 am COMPARISON: None. HISTORY: ORDERING SYSTEM PROVIDED HISTORY: Reason for Exam: elevated ALT, elevated cholesterol FINDINGS: LIVER: The liver demonstrates diffuse increased echogenicity without evidence of intrahepatic biliary ductal dilatation. Liver measures 19.8 cm in greatest dimension. BILIARY SYSTEM: Gallbladder is distended contains echogenic dependent sludge. There is no gallbladder wall thickening or ultrasound Pineda sign. Common bile duct is within normal limits measuring 3.4 mm. RIGHT KIDNEY: The right kidney is grossly unremarkable without evidence of hydronephrosis. Right kidney measures 10.8 x 5.9 x 5.9 cm. There is appropriate renal cortical thickness and echotexture without hydronephrosis or stone disease. PANCREAS: Pain OTHER: No evidence of right upper quadrant ascites. IMPRESSION: 1. Diffuse fatty infiltration of the liver. 2. Gallbladder sludge without sonographic evidence for acute cholecystitis. Interpreted by: Shaheen Cosme DO Preliminary Report By: Shaheen Cosme DO Electronically signed By Shaheen Cosme DO Dictated Date: 02/14/2024 4:08:06 PM Prelim Date: 02/14/2024 4:09:41 PM Sign Date: 02/14/2024 4:09:41 PM Ordering Provider: CORRINA Bell [facility] ([place]) .Auto Diffon 02-09-2024 Basophil, Absolute 0.0 10 3/mcL Normal 0.0-0.2 [facility] ([place]) Comment on above: Performed By: #### C BC, LIPID, FT4, A1C, ADIFF, GFR, ANEU, VIDH, TSH, CMP #### [address] [address] Basophils/100 WBC (Bld) 0.4 % Normal 0.0-2.5 [facility] ([place]) Comment on above: Performed By: #### C BC, LIPID, FT4, A1C, ADIFF, GFR, ANEU, VIDH, TSH, CMP #### [address] [address] Eosinophil, Absolute 0.2 10 3/mcL Normal 0.0-0.4 [facility] ([place]) Comment on above: Performed By: #### C BC, LIPID, FT4, A1C, ADIFF, GFR, ANEU, VIDH, TSH, CMP #### [address] [address] Eosinophils/100 WBC (Bld) 2.2 % Normal 0.0-7.0 [facility] ([place]) Comment on above: Performed By: #### C BC, LIPID, FT4, A1C, ADIFF, GFR, ANEU, VIDH, TSH, CMP #### [address] [address] Lymphocyte, Absolute 1.7 10 3/mcL Normal 0.8-3.9 [facility] ([place]) Comment on above: Performed By: #### C BC, LIPID, FT4, A1C, ADIFF, GFR, ANEU, VIDH, TSH, CMP #### [address] [address] Lymphocytes/100 WBC (Bld) 23.4 % Normal 10.0-50.0 [facility] ([place]) Comment on above: Performed By: #### C BC, LIPID, FT4, A1C, ADIFF, GFR, ANEU, VIDH, TSH, CMP #### [address] [address] Monocyte, Absolute 0.6 10 3/mcL Normal 0.2-1.0 [facility] ([place]) Comment on above: Performed By: #### C BC, LIPID, FT4, A1C, ADIFF, GFR, ANEU, VIDH, TSH, CMP #### [address] [address] Monocytes/100 WBC (Bld) 8.5 % Normal 1.7-13.0 [facility] ([place]) Comment on above: Performed By: #### C BC, LIPID, FT4, A1C, ADIFF, GFR, ANEU, VIDH, TSH, CMP #### [address] [address] Neutrophils/100 WBC (Bld) 65.5 % Normal 37.0-80.0 [facility] ([place]) Comment on above: Performed By: #### C BC, LIPID, FT4, A1C, ADIFF, GFR, ANEU, VIDH, TSH, CMP #### [address] [address] .GFRon 02-09-2024 GFR 105 ml/min/1.73sqm Normal [facility] ([place]) Comment on above: Result Comment: GFR Population mean for , Non- Americans Ages 20-29 = 116 mL/min/1.73 sq.m. Ages 30-39 = 107 mL/min/1.73 sq.m. Ages 40-49 = 99 mL/min/1.73 sq.m. Ages 50-59 = 93 mL/min/1.73 sq.m. Ages 60-69 = 85 mL/min/1.73 sq.m. Ages 70+ = 75 mL/min/1.73 sq.m. Chronic Kidney Disease: Less than 60 mL/min/1.73 square meters End Stage Renal Disease: Less than 15 mL/min/1.73 square meters Performed By: #### G FR, ANEU, LIP, CMP, CBC, ADIFF, MDW #### [address] [address] GFR Non- 86 ml/min/1.73sqm Normal [facility] ([place]) Comment on above: Result Comment: GFR Population mean for , Non- Americans Ages 20-29 = 116 mL/min/1.73 sq.m. Ages 30-39 = 107 mL/min/1.73 sq.m. Ages 40-49 = 99 mL/min/1.73 sq.m. Ages 50-59 = 93 mL/min/1.73 sq.m. Ages 60-69 = 85 mL/min/1.73 sq.m. Ages 70+ = 75 mL/min/1.73 sq.m. Chronic Kidney Disease: Less than 60 mL/min/1.73 square meters End Stage Renal Disease: Less than 15 mL/min/1.73 square meters Performed By: #### G FR, ANEU, LIP, CMP, CBC, MURPHY CRONIN #### [address] [address] .NEUABSon 02-09-2024 Neutrophil, Absolute 4.7 10 3/mcL Normal 2.9-6.2 [facility] ([place]) Comment on above: Performed By: #### C BC, LIPID, FT4, A1C, ADIFF, GFR, ANEU, VIDH, TSH, CMP #### [place] [address] A1Con 02-09-2024 HbA1c (Bld) [Mass fraction] 5.3 % Normal 4.3-6.4 [facility] ([place]) Comment on above: Performed By: #### G FR, ANEU, LIP, CMP, CBC, MURPHY CRONIN #### [place] [address] CBCon 02-09-2024 Erythrocyte distribution width (RBC) [Ratio] 13.1 % Normal 11.5-14.5 [facility] ([place]) Comment on above: Performed By: #### C BC, LIPID, FT4, A1C, ADIFF, GFR, ANEU, VIDH, TSH, CMP #### [place] [address] Hematocrit (Bld) [Volume fraction] 47.5 % Normal 42.0-52.0 [facility] ([place]) Comment on above: Performed By: #### C BC, LIPID, FT4, A1C, ADIFF, GFR, ANEU, VIDH, TSH, CMP #### [place] [address] Hgb 16.3 G/dL Normal 14.0-18.0 [facility] ([place]) Comment on above: Performed By: #### C BC, LIPID, FT4, A1C, ADIFF, GFR, ANEU, VIDH, TSH, CMP #### [address] [address] MCH (RBC) [Entitic mass] 29.9 pg Normal 27.0-31.2 [facility] ([place]) Comment on above: Performed By: #### C BC, LIPID, FT4, A1C, ADIFF, GFR, ANEU, VIDH, TSH, CMP #### [address] [address] MCHC 34.3 G/dL Normal 31.8-35.4 [facility] ([place]) Comment on above: Performed By: #### C BC, LIPID, FT4, A1C, ADIFF, GFR, ANEU, VIDH, TSH, CMP #### [address] [address] MCV (RBC) [Entitic vol] 87.3 fL Normal 80.0-94.0 [facility] ([place]) Comment on above: Performed By: #### C BC, LIPID, FT4, A1C, ADIFF, GFR, ANEU, VIDH, TSH, CMP #### [address] [address] Platelet 208 10 3/mcL Normal 130-400 [facility] ([place]) Comment on above: Performed By: #### C BC, LIPID, FT4, A1C, ADIFF, GFR, ANEU, VIDH, TSH, CMP #### [address] [address] Platelet mean volume (Bld) [Entitic vol] 7.9 fL Normal 7.4-10.4 [facility] ([place]) Comment on above: Performed By: #### C BC, LIPID, FT4, A1C, ADIFF, GFR, ANEU, VIDH, TSH, CMP #### [address] [address] RBC 5.45 10 6/mcL Normal 4.04-6.13 [facility] ([place]) Comment on above: Performed By: #### C BC, LIPID, FT4, A1C, ADIFF, GFR, ANEU, VIDH, TSH, CMP #### [address] [address] WBC 7.2 10 3/mcL Normal 4.6-10.8 [facility] ([place]) Comment on above: Performed By: #### C BC, LIPID, FT4, A1C, ADIFF, GFR, ANEU, VIDH, TSH, CMP #### [address] [address] CMPon 02-09-2024 Albumin Level 4.8 G/dL Normal 3.5-5.0 [facility] ([place]) Comment on above: Performed By: #### G FR, ANEU, LIP, CMP, CBC, ADEMMA, MURPHY #### [address] [address] Albumin/Globulin [Mass ratio] 1.3 {ratio} Normal 1.1-2.5 [facility] ([place]) Comment on above: Performed By: #### G FR, ANEU, LIP, CMP, CBC, MURPHY CRONIN #### [address] [address] ALP [Catalytic activity/Vol] 77 U/L Normal 40-135 [facility] ([place]) Comment on above: Performed By: #### G FR, ANEU, LIP, CMP, CBC, MURPHY CRONIN #### [address] [address] ALT [Catalytic activity/Vol] 135 U/L High 16-63 [facility] ([place]) Comment on above: Performed By: #### G FR, ANEU, LIP, CMP, CBC, MURPHY CRONIN #### [address] [address] AST [Catalytic activity/Vol] 39 U/L Normal 10-40 [facility] ([place]) Comment on above: Performed By: #### G FR, ANEU, LIP, CMP, CBC, MURPHY CRONIN #### [address] [address] Bili Total 0.5 mg/dL Normal 0.2-1.0 [facility] ([place]) Comment on above: Result Comment: Use of this assay is not recommended for patients undergoing treatment with eltrombopag due to the potential for falsely elevated results. Performed By: #### G FR, ANEU, LIP, CMP, CBC, ROSEANNE, MURPHY #### [address] [address] BUN/Creatinine Ratio 15 ratio Normal 7-27 [facility] ([place]) Comment on above: Performed By: #### G FR, ANEU, LIP, CMP, CBC, ROSEANNE, MURPHY #### [address] [address] Calcium [Mass/Vol] 10.4 mg/dL High 8.4-10.2 [facility] ([place]) Comment on above: Performed By: #### G FR, ANEU, LIP, CMP, CBC, ROSEANNE, MURPHY #### [address] [address] Chloride [Moles/Vol] 100 mmol/L Normal 98-107 [facility] ([place]) Comment on above: Performed By: #### G FR, ANEU, LIP, CMP, CBC, ROSEANNE, MURPHY #### [address] [address] CO2 [Moles/Vol] 26 mmol/L Normal 22-29 [facility] ([place]) Comment on above: Performed By: #### G FR, ANEU, LIP, CMP, CBC, ROSEANNE, MURPHY #### [address] [address] Creatinine [Mass/Vol] 1.07 mg/dL Normal 0.70-1.30 [facility] ([place]) Comment on above: Performed By: #### G FR, ANEU, LIP, CMP, CBC, ROSEANNE, MURPHY #### [address] [address] Electrolyte Balance 13.0 mEq/L Normal 4.0-15.0 [facility] ([place]) Comment on above: Performed By: #### G FR, ANEU, LIP, CMP, CBC, ADEMMA, W #### [address] [address] Globulin 3.6 G/dL Normal [facility] ([place]) Comment on above: Performed By: #### G FR, ANEU, LIP, CMP, CBC, MURPHY CRONIN #### [address] [address] Glucose [Mass/Vol] 96 mg/dL Normal 70-105 [facility] ([place]) Comment on above: Performed By: #### G FR, ANEU, LIP, CMP, CBC, MURPHY CRONIN #### [address] [address] Potassium [Moles/Vol] 4.5 mmol/L Normal 3.5-5.1 [facility] ([place]) Comment on above: Performed By: #### G FR, ANEU, LIP, CMP, CBC, MURPHY CRONIN #### [address] [address] Sodium [Moles/Vol] 139 mmol/L Normal 136-145 [facility]) Comment on above: Performed By: #### G FR, ANEU, LIP, CMP, LUANN, MURPHY CRONIN #### [address] [address] Total Protein 8.4 G/dL High 6.4-8.2 [facility] Comment on above: Performed By: #### G FR, ANEU, LIP, CMP, CBC, MURPHY CRONIN #### [address] [address] Urea nitrogen [Mass/Vol] 16 mg/dL Normal 7-18 [facility] Comment on above: Performed By: #### G FR, ANEU, LIP, CMP, LUANN, MURPHY CRONIN #### [address] [address] FT4on 02-09-2024 Free T4 [Mass/Vol] 0.82 ng/dL Normal 0.76-1.46 [facility] ([place]) Comment on above: Performed By: #### G FR, ANEU, LIP, CMP, CBC, MURPHY CRONIN #### [address] [address] LABORATORYOrdered By: SYSTEM SYSTEM on 02-09-2024 25-hydroxyvitamin D3 [Mass/Vol] 14.3 ng/mL Invalid Interpretation Code AO ADM SS Comment on above: Interpretive Data: I nterpretive Values Based on Total 25(OH) Vitamin D: Deficient <20 ng/mL Insufficient 20 - <30 ng/mL Sufficient 30-100 ng/mL Albumin BCP dye [Mass/Vol] 4.8 G/dL Normal 3.5 - 5.0 G/dL AO ADM SS Albumin/Globulin [Mass ratio] 1.3 {ratio} Normal 1.1 - 2.5 ratio AO ADM SS ALP [Catalytic activity/Vol] 77 U/L Normal 40 - 135 U/L AO ADM SS ALT With P-5'-P [Catalytic activity/Vol] 135 U/L High 16 - 63 U/L AO ADM SS AST With P-5'-P [Catalytic activity/Vol] 39 U/L Normal 10 - 40 U/L AO ADM SS Basophil, Absolute 0.0 103/mcL Normal 0.0 - 0.2 10^3/mcL AO Workflow SS Basophils/100 WBC (Bld) 0.4 % Normal 0.0 - 2.5 % AO Workflow SS Bilirubin [Mass/Vol] 0.5 mg/dL Normal 0.2 - 1 .0 mg/dL AO ADM SS Comment on above: Interpretive Data: U se of this assay is not recommended for patients undergoing treatment with eltrombopag due to the potential for falsely elevated results. Calcium [Mass/Vol] 10.4 mg/dL High 8.4 - 10. 2 mg/dL AO ADM SS Chloride [Moles/Vol] 100 mmol/L Normal 98 - 10 7 mmol/L AO ADM SS CO2 [Moles/Vol] 26 mmol/L Normal 22 - 29 mmol/L AO ADM SS Creatinine [Mass/Vol] 1.07 mg/dL Normal 0.70 - 1.30 mg/dL AO ADM SS Electrolyte Balance 13.0 mEq/L Normal 4.0 - 15 .0 mEq/L AO ADM SS Eosinophil, Absolute 0.2 103/mcL Normal 0.0 - 0 .4 10^3/mcL AO Workflow SS Eosinophils/100 WBC (Bld) 2.2 % Normal 0.0 - 7.0 % AO Workflow SS Erythrocyte distribution width (RBC) [Ratio] 13.1 % Normal 11.5 - 14.5 % AO Workflow SS Free T4 [Mass/Vol] 0.82 ng/dL Normal 0.76 - 1. 46 ng/dL AO ADM SS GFR/1.73 sq M.predicted among blacks MDRD (S/P/Bld) [Vol rate/Area] 105 ml/min/1.73sqm Invalid Interpretation Code AO Chemistry S Comment on above: Interpretive Data: GFR Population mean for , Non- Americans Ages 20-29 = 116 mL/min/1.73 sq.m. Ages 30-39 = 107 mL/min/1.73 sq.m. Ages 40-49 = 99 mL/min/1.73 sq.m. Ages 50-59 = 93 mL/min/1.73 sq.m. Ages 60-69 = 85 mL/min/1.73 sq.m. Ages 70+ = 75 mL/min/1.73 sq.m. Chronic Kidney Disease: Less than 60 mL/min/1.73 square meters End Stage Renal Disease: Less than 15 mL/min/1.73 square meters GFR/1.73 sq M.predicted among non-blacks MDRD (S/P/Bld) [Vol rate/Area] 86 ml/min/1.73sqm Invalid Interpretation Code AO Chemistry S Comment on above: Interpretive Data: GFR Population mean for , Non- Americans Ages 20-29 = 116 mL/min/1.73 sq.m. Ages 30-39 = 107 mL/min/1.73 sq.m. Ages 40-49 = 99 mL/min/1.73 sq.m. Ages 50-59 = 93 mL/min/1.73 sq.m. Ages 60-69 = 85 mL/min/1.73 sq.m. Ages 70+ = 75 mL/min/1.73 sq.m. Chronic Kidney Disease: Less than 60 mL/min/1.73 square meters End Stage Renal Disease: Less than 15 mL/min/1.73 square meters Globulin 3.6 G/dL Invalid Interpretation Code AO ADM SS Glucose [Mass/Vol] 96 mg/dL Normal 70 - 105 mg/dL AO ADM SS HbA1c (Bld) [Mass fraction] 5.3 % Normal 4.3 - 6.4 % AO ADM SS Hematocrit (Bld) [Volume fraction] 47.5 % Normal 42.0 - 52.0 % AO Workflow SS Hemoglobin (Bld) [Mass/Vol] 16.3 G/dL Normal 14.0 - 18.0 G/dL AO Workflow SS Lymphocyte, Absolute 1.7 103/mcL Normal 0.8 - 3 .9 10^3/mcL AO Workflow SS Lymphocytes/100 WBC (Bld) 23.4 % Normal 10.0 - 50.0 % AO Workflow SS MCH (RBC) [Entitic mass] 29.9 pg Normal 27.0 - 31.2 pg AO Workflow SS MCHC 34.3 G/dL Normal 31.8 - 35.4 G/dL AO Workflow SS MCV (RBC) [Entitic vol] 87.3 fL Normal 80.0 - 94.0 fL AO Workflow SS Monocyte, Absolute 0.6 103/mcL Normal 0.2 - 1.0 10^3/mcL AO Workflow SS Monocytes/100 WBC (Bld) 8.5 % Normal 1.7 - 13.0 % AO Workflow SS Neutrophil, Absolute 4.7 103/mcL Normal 2.9 - 6 .2 10^3/mcL AO Workflow SS Neutrophils/100 WBC (Bld) 65.5 % Normal 37.0 - 80.0 % AO Workflow SS Platelet mean volume (Bld) [Entitic vol] 7.9 fL Normal 7.4 - 10.4 fL AO Workflow SS Platelets (Bld) [#/Vol] 208 103/mcL Normal 130 - 400 10^3/mcL AO Workflow SS Potassium [Moles/Vol] 4.5 mmol/L Normal 3.5 - 5.1 mmol/L AO ADM SS Protein [Mass/Vol] 8.4 G/dL High 6.4 - 8.2 G/dL AO ADM SS RBC (Bld) [#/Vol] 5.45 106/mcL Normal 4.04 - 6.1 3 10^6/mcL AO Workflow SS Sodium [Moles/Vol] 139 mmol/L Normal 136 - 145 mmol/L AO ADM SS TSH Qn 3.03 m[IU]/L Normal 0.36 - 3.74 mcIU/mL AO ADM SS Urea nitrogen [Mass/Vol] 16 mg/dL Normal 7 - 18 mg/dL AO ADM SS Urea nitrogen/Creatinine [Mass ratio] 15 ratio Normal 7 - 27 ratio AO ADM SS WBC (Bld) [#/Vol] 7.2 103/mcL Normal 4.6 - 10.8 10^3/mcL AO Workflow SS LABORATORYOrdered By: Delilah Brennan on 02-09-2024 Cholesterol [Mass/Vol] 309 mg/dL High 0 - 200 mg/dL AO ADM SS Comment on above: Interpretive Data: C holesterol Reference Interval: Less than 200 Desirable 200-239 Borderline high risk 240 and above High risk Cholesterol in HDL [Mass/Vol] 38 mg/dL Low 40 - 60 mg/dL AO ADM SS Cholesterol in LDL [Mass/Vol] 196 mg/dL High 0 - 130 mg/dL AO ADM SS Triglyceride [Mass/Vol] 374 mg/dL High 0 - 150 mg/dL AO ADM SS Comment on above: Interpretive Data: T riglyceride Reference Interval: Less than 150 Normal 150-199 Borderline high risk 200-499 High risk 500 or higher Very high risk LIPIDon 02-09-2024 Cholesterol [Mass/Vol] 309 mg/dL High 0-200 [facility] ([place] Comment on above: Result Comment: Chol esterol Reference Interval: Less than 200 Desirable 200-239 Borderline high risk 240 and above High risk Performed By: #### G FR, ANEU, LIP, CMP, CBC, ROSEANNE, W #### [address] [address] Cholesterol in HDL [Mass/Vol] 38 mg/dL Low 40-60 [facility] ([place]) Comment on above: Performed By: #### G FR, ANEU, LIP, CMP, CBC, MURPHY CRONIN #### [address] [address] Cholesterol in LDL [Mass/Vol] 196 mg/dL High 0-130 [facility] ([place]) Comment on above: Performed By: #### G FR, ANEU, LIP, CMP, CBC, ROSEANNE, W #### [address] [address] Triglyceride [Mass/Vol] 374 mg/dL High 0-150 [facility] ([place]) Comment on above: Result Comment: Trig lyceride Reference Interval: Less than 150 Normal 150-199 Borderline high risk 200-499 High risk 500 or higher Very high risk Performed By: #### G FR, ANEU, LIP, CMP, CBC, MURPHY CRONIN #### [id number] [place], [place] [address] TSHon 02-09-2024 TSH Qn 3.03 m[IU]/L Normal 0.36-3.74 [facility] ([place]) Comment on above: Performed By: #### G FR, ANEU, LIP, CMP, CBC, MURPHY CRONIN #### [address] [address] VIDHon 02-09-2024 Vit. D 25-Hydroxy 14.3 ng/mL Normal [facility] ([place]) Comment on above: Result Comment: Inte rpretive Values Based on Total 25(OH) Vitamin D: Deficient <20 ng/mL Insufficient 20 - <30 ng/mL Sufficient 30-100 ng/mL Performed By: #### G FR, ANEU, LIP, CMP, CBC, MURPHY CRONIN #### [address] [address] LABORATORYOrdered By: Noe Fabian on 09-09-2022 FLUAV RNA ОЛЬГА+probe Ql (Upper resp) Negative (09/09/22 4:41 PM) Invalid Interpretation Code Negative AO Auto Urine SS FLUBV RNA ОЛЬГА+probe Ql (Upper resp) Negative (09/09/22 4:41 PM) Invalid Interpretation Code Negative AO Auto Urine SS RSV RNA ОЛЬГА+probe Ql (Upper resp) Negative (09/09/22 4:41 PM) Invalid Interpretation Code Negative AO Auto Urine SS SARS-CoV-2 (COVID-19) RNA ОЛЬГА+probe Ql (Resp) Negative results do not preclude SARS-CoV-2 infection and should not be used as the sole basis for patient management decisions. Negative results must be combined with clinical observations, patient history, and epidemiological information.There is a risk of false negative values resulting from improperly collected, transported, or handled specimens.There is a risk of false negative values due to the presence of sequence variants in the pathogen targets of the assay, procedural errors, amplification inhibitors in specimens, or inadequate numbers of organisms for amplification.DILAN SARS-CoV-2 Assay is a Real-Time reverse-transcriptase polymerase chain reaction (RT-PCR) based qualitative in vitro diagnostic test intended for the qualitative detection of nucleic acid from the SARS-CoV-2 in nasopharyngeal swab specimens collected from individuals suspected of COVID-19 by their healthcare provider. Testing is limited to laboratories certified under the Clinical Laboratory Improvement Amendments of 1988 (CLIA), 42 U.S.C. 263a, to perform moderate and high complexity tests. Invalid Interpretation Code AO Auto Urine SS LABORATORYOrdered By: Carmelita Weaver on 07-03-2022 Albumin BCP dye [Mass/Vol] 4.9 G/dL Invalid Interpretation Code 3.5 - 5.0 G/dL AO ADM SS Albumin/Globulin [Mass ratio] 1.5 {ratio} Invalid Interpretation Code 1.1 - 2.5 ratio AO ADM SS ALP [Catalytic activity/Vol] 70 U/L Invalid Interpretation Code 40 - 135 U/L AO ADM SS ALT With P-5'-P [Catalytic activity/Vol] 50 U/L Invalid Interpretation Code 16 - 63 U/L AO ADM SS AST With P-5'-P [Catalytic activity/Vol] 25 U/L Invalid Interpretation Code 10 - 40 U/L AO ADM SS Basophil, Absolute 0.0 103/mcL Invalid Interpretation Code 0.0 - 0.2 10^3/mcL AO Workflow SS Basophils/100 WBC (Bld) 0.8 % Invalid Interpretation Code 0.0 - 2.5 % AO Workflow SS Bilirubin [Mass/Vol] 0.7 mg/dL Invalid Interpretation Code 0.2 - 1.0 mg/dL AO ADM SS Calcium [Mass/Vol] 10.4 mg/dL Invalid Interpretation Code 8.4 - 10.2 mg/dL AO ADM SS Chloride [Moles/Vol] 101 mmol/L Invalid Interpretation Code 98 - 107 mmol/L AO ADM SS CO2 [Moles/Vol] 32 mmol/L Invalid Interpretation Code 22 - 29 mmol/L AO ADM SS Creatinine [Mass/Vol] 1.31 mg/dL Invalid Interpretation Code 0.70 - 1.30 mg/dL AO ADM SS CRP [Mass/Vol] mg/dL Invalid Interpretation Code 0.0 - 0.9 mg/dL AO Chemistry S Electrolyte Balance 6.0 mEq/L Invalid Interpretation Code 4.0 - 15.0 mEq/L AO ADM SS Eosinophil, Absolute 0.2 103/mcL Invalid Interpretation Code 0.0 - 0.4 10^3/mcL AO Workflow SS Eosinophils/100 WBC (Bld) 4.1 % Invalid Interpretation Code 0.0 - 7.0 % AO Workflow SS Erythrocyte distribution width (RBC) [Ratio] 13.7 % Invalid Interpretation Code 11.5 - 14.5 % AO Workflow SS ESR 15 minute reading (Bld) [Velocity] 2 mm/hr Invalid Interpretation Code 0 - 15 mm/hr AO Man Heme SS Globulin 3.2 G/dL Invalid Interpretation Code AO ADM SS Glucose [Mass/Vol] 81 mg/dL Invalid Interpretation Code 70 - 105 mg/dL AO ADM SS HbA1c (Bld) [Mass fraction] 5.1 % Invalid Interpretation Code 4.3 - 6.4 % AO ADM SS Hematocrit (Bld) [Volume fraction] 45.4 % Invalid Interpretation Code 42.0 - 52.0 % AO Workflow SS Hemoglobin (Bld) [Mass/Vol] 15.6 G/dL Invalid Interpretation Code 14.0 - 18.0 G/dL AO Workflow SS Lymphocyte, Absolute 1.6 103/mcL Invalid Interpretation Code 0.8 - 3.9 10^3/mcL AO Workflow SS Lymphocytes/100 WBC (Bld) 27.0 % Invalid Interpretation Code 10.0 - 50.0 % AO Workflow SS MCH (RBC) [Entitic mass] 29.7 pg Invalid Interpretation Code 27.0 - 31.2 pg AO Workflow SS MCHC 34.4 G/dL Invalid Interpretation Code 31.8 - 35.4 G/dL AO Workflow SS MCV (RBC) [Entitic vol] 86.3 fL Invalid Interpretation Code 80.0 - 94.0 fL AO Workflow SS Monocyte, Absolute 0.6 103/mcL Invalid Interpretation Code 0.2 - 1.0 10^3/mcL AO Workflow SS Monocytes/100 WBC (Bld) 9.6 % Invalid Interpretation Code 1.7 - 13.0 % AO Workflow SS Neutrophil, Absolute 3.4 103/mcL Invalid Interpretation Code 2.9 - 6.2 10^3/mcL AO Workflow SS Neutrophils/100 WBC (Bld) 58.5 % Invalid Interpretation Code 37.0 - 80.0 % AO Workflow SS Platelet mean volume (Bld) [Entitic vol] 7.6 fL Invalid Interpretation Code 7.4 - 10.4 fL AO Workflow SS Platelets (Bld) [#/Vol] 212 103/mcL Invalid Interpretation Code 130 - 400 10^3/mcL AO Workflow SS Potassium [Moles/Vol] 5.0 mmol/L Invalid Interpretation Code 3.5 - 5.1 mmol/L AO ADM SS Protein [Mass/Vol] 8.1 G/dL Invalid Interpretation Code 6.4 - 8.2 G/dL AO ADM SS RBC (Bld) [#/Vol] 5.26 106/mcL Invalid Interpretation Code 4.04 - 6.13 10^6/mcL AO Workflow SS Sodium [Moles/Vol] 139 mmol/L Invalid Interpretation Code 136 - 145 mmol/L AO ADM SS TSH Qn 1.84 m[IU]/L Invalid Interpretation Code 0.36 - 3.74 mcIU/mL AO ADM SS Urea nitrogen [Mass/Vol] 20 mg/dL Invalid Interpretation Code 7 - 18 mg/dL AO ADM SS Urea nitrogen/Creatinine [Mass ratio] 15 ratio Invalid Interpretation Code 7 - 27 ratio AO ADM SS Vit. D 25-Hydroxy 12.6 ng/mL Invalid Interpretation Code AO ADM SS WBC (Bld) [#/Vol] 5.9 103/mcL Invalid Interpretation Code 4.6 - 10.8 10^3/mcL AO Workflow SS LABORATORYOrdered By: SYSTEM SYSTEM on 07-03-2022 Cobalamin (Vitamin B12) [Mass/Vol] 531 pg/mL Invalid Interpretation Code 211 - 911 pg/mL AH ADM SS Folate [Mass/Vol] 16.63 ng/mL Invalid Interpretation Code 5.38 - 24.00 ng/mL AH ADM SS GFR 84 ml/min/1.73sqm Invalid Interpretation Code AO Chemistry S GFR Non- 69 ml/min/1.73sqm Invalid Interpretation Code AO Chemistry S LABORATORYOrdered By: Marielena Bajwa on 05-06-2022 Appearance (U) Clear (05/06/22 11:27 AM) Invalid Interpretation Code Clear AO Auto Urine SS Bilirubin Ql (U) Negative (05/06/22 11:27 AM) Invalid Interpretation Code Negative AO Auto Urine SS Color (U) Yellow (05/06/22 11:27 AM) Invalid Interpretation Code AO Auto Urine SS Glucose Test strip (U) [Mass/Vol] Negative Invalid Interpretation Code Negativemg/d L AO Auto Urine SS Hemoglobin Auto test strip (U) [Mass/Vol] Negative (05/06/22 11:27 AM) Invalid Interpretation Code Negative AO Auto Urine SS Ketones Ql (U) Negative Invalid Interpretation Code Negativemg/d L AO Auto Urine SS UA Leuk Est Negative (05/06/22 11:27 AM) Invalid Interpretation Code Negative AO Auto Urine SS UA Nitrite Negative (05/06/22 11:27 AM) Invalid Interpretation Code Negative AO Auto Urine SS UA pH 6.0 (05/06/22 11:27 AM) Invalid Interpretation Code 5.0 - 8.0 AO Auto Urine SS UA Protein Negative Invalid Interpretation Code Negativemg/d L AO Auto Urine SS UA Spec Grav >=1.030 *ABN* (05/06/22 11:27 AM) Invalid Interpretation Code 1.015-1.025 AO Auto Urine SS UA Specimen Type Clean Catch (05/06/22 11:27 AM) Invalid Interpretation Code AO Auto Urine SS UA Urobilinogen 0.2 E.U./dL Invalid Interpretation Code 0.2-1.0E.U./ dL AO Auto Urine SS LABORATORYOrdered By: Lana Lawton on 09-08-2021 Basophil, Absolute 0.00 103/mcL Invalid Interpretation Code 0.00 - 0.19 10^3/mcL AO Auto Heme SS Basophils/100 WBC (Bld) 0.5 % Invalid Interpretation Code 0.0 - 2.5 % AO Auto Heme SS Eosinophil, Absolute 0.10 103/mcL Invalid Interpretation Code 0.00 - 0.40 10^3/mcL AO Auto Heme SS Eosinophils/100 WBC (Bld) 1.6 % Invalid Interpretation Code 0.0 - 7.0 % AO Auto Heme SS Erythrocyte distribution width (RBC) [Ratio] 13.4 % Invalid Interpretation Code 11.5 - 14.5 % AO Auto Heme SS Hematocrit (Bld) [Volume fraction] 42.6 % Invalid Interpretation Code 42.0 - 52.0 % AO Auto Heme SS Hemoglobin (Bld) [Mass/Vol] 14.7 G/dL Invalid Interpretation Code 14.0 - 18.0 G/dL AO Auto Heme SS Lymphocyte, Absolute 1.60 103/mcL Invalid Interpretation Code 0.77 - 3.85 10^3/mcL AO Auto Heme SS Lymphocytes/100 WBC (Bld) 30.1 % Invalid Interpretation Code 10.0 - 50.0 % AO Auto Heme SS MCH (RBC) [Entitic mass] 29.6 pg Invalid Interpretation Code 27.0 - 31.2 pg AO Auto Heme SS MCHC (RBC) [Mass/Vol] 34.5 G/dL Invalid Interpretation Code 31.8 - 35.4 G/dL AO Auto Heme SS MCV (RBC) [Entitic vol] 85.8 fL Invalid Interpretation Code 80.0 - 94.0 fL AO Auto Heme SS Monocyte, Absolute 0.50 103/mcL Invalid Interpretation Code 0.15 - 1.00 10^3/mcL AO Auto Heme SS Monocytes/100 WBC (Bld) 10.1 % Invalid Interpretation Code 1.7 - 13.0 % AO Auto Heme SS Neutrophil, Absolute 3.10 103/mcL Invalid Interpretation Code 2.85 - 6.16 10^3/mcL AO Auto Heme SS Neutrophils/100 WBC (Bld) 57.7 % Invalid Interpretation Code 37.0 - 80.0 % AO Auto Heme SS Platelet mean volume (Bld) [Entitic vol] 8.1 fL Invalid Interpretation Code 7.4 - 10.4 fL AO Auto Heme SS Platelets (Bld) [#/Vol] 228 103/mcL Invalid Interpretation Code 130 - 400 10^3/mcL AO Auto Heme SS RBC (Bld) [#/Vol] 4.96 106/mcL Invalid Interpretation Code 4.04 - 6.13 10^6/mcL AO Auto Heme SS WBC (Bld) [#/Vol] 5.30 103/mcL Invalid Interpretation Code 4.60 - 10.80 10^3/mcL AO Auto Heme SS Vital Signs Date Time Vital Sign Value Performing Clinician Alireza figueredo 03-26-2024 19:03-0400 Body temperature 97.52 [degF] YULIA HAYES MD [facility] 03-26-2024 19:03-0400 Diastolic Blood Pressure Non-Invasive 80 mm[Hg] YULIA HAYES MD [facility] 03-26-2024 19:03-0400 Heart rate 88 /min YULIA HAYES MD [facility] 03-26-2024 19:03-0400 Respiratory rate 18 /min YULIA HAYES MD [facility] 08-18-2024 19:03-0400 Systolic Blood Pressure Non-Invasive 142 mm[Hg] YULIA HAYES MD [facility] 03-16-2023 16:29-0400 Blood Pressure Cuff Size ITA HENDRICKS MD [facility] 03-16-2023 16:29-0400 Blood Pressure Location ITA HENDRICKS MD [facility] 03-16-2023 16:29-0400 Blood Pressure Method ITA HENDRICKS MD [facility] 03-16-2023 16:29-0400 Body temperature 98.6 [degF] ITA HENDRICKS MD [facility] 03-16-2023 16:29-0400 Body weight 86.4 kg ITA HENDRICKS MD [facility] 03-16-2023 16:29-0400 Diastolic Blood Pressure Non-Invasive 82 1 ITA HENDRICKS MD [facility] 03-16-2023 16:29-0400 Heart rate 74 /min ITA HENDRICKS MD [facility] 03-16-2023 16:29-0400 Respiratory rate 18 /min ITA HENDRICKS MD [facility] 03-16-2023 16:29-0400 Systolic Blood Pressure Non-Invasive 141 1 ITA HENDRICKS MD [facility] 09-09-2022 16:10-0500 Body height 178 cm SHAHEEN JORGE DO [facility] 09-09-2022 16:10-0500 Body temperature 98.96 [degF] SHAHEEN JORGE DO [facility] 09-09-2022 16:10-0500 Body weight 82 kg SHAHEEN JORGE DO [facility] 09-09-2022 16:10-0500 Diastolic Blood Pressure Non-Invasive 84 1 SHAHEEN JORGE DO [facility] 09-09-2022 16:10-0500 Heart rate 89 /min SHAHEEN JORGE DO [facility] 09-09-2022 16:10-0500 Respiratory rate 16 /min SHAHEEN JORGE DO [facility] 09-09-2022 16:10-0500 Systolic Blood Pressure Non-Invasive 131 1 SHAHEEN JORGE DO [facility] 08-12-2022 06:17-0500 Body height 177.[address] GURINDER SANTIAGO MD [facility] 08-12-2022 06:17-0500 Body temperature 98.24 [degF] DR GURINDER SANTIAGO MD [facility] 08-12-2022 06:17-0500 Body weight 84.[address] GURINDER SANTIAGO MD [facility] 08-12-2022 06:17-0500 Diastolic Blood Pressure Non-Invasive [address] GURINDER SANTIAGO MD [facility] 08-12-2022 06:17-0500 Heart rate 70 /min DR GURINDER SANTIAGO MD [facility] 08-12-2022 06:17-0500 Reason For Taking VItal Signs DR GURINDER SANTIAGO MD [facility] 08-12-2022 06:17-0500 Respiratory rate 18 /min DR GURINDER SANTIAGO MD [facility] 08-12-2022 06:17-0500 Systolic Blood Pressure Non-Invasive [address] GURINDER SANTIAGO MD [facility] 08-11-2022 17:18-0500 Body height 177.8 cm ARPIT ALMEIDA MD [facility] 08-11-2022 17:18-0500 Body temperature 98.6 [degF] ARPIT ALMEIDA MD [facility] 08-11-2022 17:18-0500 Body weight 81.8 kg ARPIT ALMEIDA MD [facility] 08-11-2022 17:18-0500 Diastolic Blood Pressure Non-Invasive 84 1 ARPIT ALMEIDA MD [facility] 08-11-2022 17:18-0500 Heart rate 86 /min ARPIT ALMEIDA MD [facility] 08-11-2022 17:18-0500 Respiratory rate 18 /min ARPIT ALMEIDA MD [facility] 08-11-2022 17:18-0500 Systolic Blood Pressure Non-Invasive 132 1 ARPIT ALMEIDA MD [facility] 05-06-2022 11:11-0400 Body temperature 98.6 [degF] DR LIVIER MANCIA MD [facility] 05-06-2022 11:11-0400 Body weight 63.[address] LIVIER MANCIA MD [facility] 05-06-2022 11:11-0400 Diastolic blood pressure 88 mm[Hg] DR LIVIER MANCIA MD [facility] 05-06-2022 11:11-0400 Heart rate 68 /min DR LIVIER MANCIA MD [facility] 05-06-2022 11:11-0400 Respiratory rate 16 /min DR LIVIER MANCIA MD [facility] 05-06-2022 11:11-0400 Systolic blood pressure 133 mm[Hg] DR LIVIER MANCIA MD [facility] Encounters Encounter Date Encounter Type Care Provider Facility Start: 04-20-2024 End: 04-20-2024 ambulatory CORRINA ADAME [employer] DIRECTOR-FIELD SERVICE COORDINATOR Facility:[facility] Start: 03-27-2024 End: 03-27-2024 ambulatory CORRINA ADAME [facility] DIRECTOR-FIELD SERVICE COORDINATOR Facility:[facility] Start: 03-27-2024 End: 03-27-2024 Patient encounter procedure CORRINA ADAME [facility] DIRECTOR-FIELD SERVICE COORDINATOR [facility] Start: 03-26-2024 End: 03-26-2024 Emergency department patient visit YULIA HAYES MD [facility] Start: 02-14-2024 End: 02-14-2024 ambulatory CORRINA ADAME [facility] DIRECTOR-FIELD SERVICE COORDINATOR Facility:[facility] Start: 02-14-2024 End: 02-14-2024 Patient encounter procedure CORRINA ADAME [facility] DIRECTOR-FIELD SERVICE COORDINATOR [facility] Start: 02-09-2024 End: 02-09-2024 ambulatory CORRINA ADAME [facility] DIRECTOR-FIELD SERVICE COORDINATOR Facility:[facility] Start: 02-09-2024 End: 02-09-2024 Patient encounter procedure CORRINA ADAME [facility] DIRECTOR-FIELD SERVICE COORDINATOR [facility] Start: 07-28-2023 ambulatory CORRINA CASTRO [facility] AND SAFET[employer] DIRECTOR-FIELD SERVICE COORDINATOR Facility:[facility] Start: 03-16-2023 End: 03-16-2023 Emergency department patient visit ITA HENDRICKS MD [facility] Start: 09-23-2022 End: 10-22-2022 Physical therapy management CORRINA ADAME [employer] DIRECTOR-FIELD SERVICE COORDINATOR [facility] Start: 09-09-2022 End: 09-09-2022 Emergency department patient visit SHAHEEN JORGE DO [facility] Start: 08-12-2022 End: 08-12-2022 Emergency department patient visit DR GURINDER SANTIAGO MD [facility] Start: 08-11-2022 End: 08-11-2022 Emergency department patient visit ARPIT ALMEIDA MD [facility] Start: 07-03-2022 End: 07-03-2022 Patient encounter procedure CORRINA ADAME [facility] DIRECTOR-FIELD SERVICE COORDINATOR [facility] Start: 05-06-2022 End: 05-06-2022 Emergency department patient visit DR LIVIER MANCIA MD [facility] Start: 09-08-2021 End: 09-08-2021 Patient encounter procedure FRANCISCA LUCERO [facility] AND SAFETY DIRECTOR-FIELD SERVICE COORDINATOR [facility] Procedures Date Procedure Procedure Detail Performing Clinician Start: 12-07-2020 Electrocardiographic monitor and recorder, device (physical object) FRANCISCA LUCERO [employer] DIRECTOR-FIELD SERVICE COORDINATOR Comment on above: SUMMARY: 1. Symptoms of FAINTED (01/01, 10:31am) associated with sinus rhythm 131 bpm. 6 transmissions for symptoms of skipped beat, lightheaded, short of breath, chest pain, heart racing, dizzy, or symptom other than listed associated with sinus rhythm 76-98 bpm. (NO arrhythmia basis for patient symptoms). 2. Sinus rhythm 52-160 bpm with mean hr 69 bpm. 3. No significant pauses seen. 4. VPC burden not tabulated due to excessive artifact; none seen on strips provided. 5. APC burden <1% all beats, in single beats. Immunizations Immunization Date Immunization Notes Care Provider Fa cility 03-06-2019 meningococcal oligosaccharide (groups A, C, Y and W-135) diphtheria toxoid conjugate vaccine (MCV4O); Translations: [Menveo] FRANCISCA LUCERO [email or web address] [facility] Comment on above: Early/Late Reason: W ithin Normal Limits 03-06-2019 varicella virus vacc ine; Translations: [Varivax] FRANCISCA LUCERO [email or web address] [facility] Comment on above: Early/Late Reason: O ther : given during OV 03-24-2014 meningococcal polysaccharide (groups A, C, Y and W-135) diphtheria toxoid conjugate vaccine (MCV4P) FRANCISCA LUCERO [employer] [facility] 03-24-2014 tetanus toxoid, redu luan diphtheria toxoid, and acellular pertussis vaccine, adsorbed FRANCISCA LUCERO [email or web address] [facility] 05-04-2006 diphtheria, tetanus toxoids and acellular pertussis vaccine, unspecified formulation FRANCISCA LUCERO [employer] [facility] 05-03-2006 DTaP-hepatitis B and poliovirus vaccine FRANCISCA LUCERO [facility] SAF[employer] DIRECTOR-FIELD SERVICE COORDINATOR [facility] 05-03-2006 haemophilus influenz ae type b vaccine, PRP-T conjugate FRANCISCA LUCERO [facility] SAF[employer] DIRECTOR-FIELD SERVICE COORDINATOR [facility] 05-03-2006 hepatitis B pediatri c vaccine FRANCISCA LUCERO [facility] SAF[employer] DIRECTOR-FIELD SERVICE COORDINATOR [facility] 05-03-2006 measles/mumps/rubell a virus vaccine FRANCISCA LUCERO [facility] S[employer] DIRECTOR-FIELD SERVICE COORDINATOR [facility] 05-03-2006 poliovirus vaccine, inactivated FRANCISCA LUCERO [facility] AND SAF[employer] DIRECTOR-FIELD SERVICE COORDINATOR [facility] 05-03-2006 varicella virus vaccine ERIKA SONG [facility] AND SAFETY DIRECTOR-FIELD SERVICE COORDINATOR [facility] 12-14-2002 diphtheria, tetanus toxoids and acellular pertussis vaccine, unspecified formulation FRANCISCA LUCERO [facility] AND SAFETY DIRECTOR-FIELD SERVICE COORDINATOR [facility] 06-19-2002 hepatitis B pediatri c vaccine FRANCISCA LUCERO [facility] AND SAFET[employer] DIRECTOR-FIELD SERVICE COORDINATOR [facility] 06-19-2002 measles/mumps/rubell a virus vaccine FRANCISCA LUCERO [facility] AND SAFETY DIRECTOR-FIELD SERVICE COORDINATOR [facility] 2001 diphtheria, tetanus toxoids and acellular pertussis vaccine, unspecified formulation FRANCISCA LUCERO [facility] AND SAFETY DIRECTOR-FIELD SERVICE COORDINATOR [facility] 2001 haemophilus influenz ae type b vaccine, PRP-T conjugate FRANCISCASALMA LUCERO [facility] AND SAFETY DIRECTOR-FIELD SERVICE COORDINATOR [facility] 2001 hepatitis B pediatri c vaccine FRANCISCASALMA LUCERO [facility] AND SAFETY DIRECTOR-FIELD SERVICE COORDINATOR [facility] 2001 poliovirus vaccine, inactivated FRANCISCA LUCERO HE[employer] AND SAFETY DIRECTOR-FIELD SERVICE COORDINATOR [facility] 2001 diphtheria, tetanus toxoids and acellular pertussis vaccine, unspecified formulation FRANCISCASALAM LUCERO [facility] AND SAFET[facility] DIRECTOR-FIELD SERVICE COORDINATOR [facility] 2001 haemophilus influenz ae type b vaccine, PRP-T conjugate FRANCISCA LUCERO [facility] AND SAFETY DIRECTOR-FIELD SERVICE COORDINATOR [facility] 2001 poliovirus vaccine, inactivated FRANCISCA LUCERO [facility] AND SAFETY DIRECTOR-FIELD SERVICE COORDINATOR [facility] 2001 diphtheria, tetanus toxoids and acellular pertussis vaccine, unspecified formulation FRANCISCA LUCERO HE[employer] AND SAFETY DIRECTOR-FIELD SERVICE COORDINATOR [facility] 2001 haemophilus influenz ae type b vaccine, PRP-T conjugate FRANCISCA LUCERO [facility] AND SAFETY DIRECTOR-FIELD SERVICE COORDINATOR [facility] 2001 poliovirus vaccine, inactivated FRANCISCA LUCERO [facility] AND SAFETY DIRECTOR-FIELD SERVICE COORDINATOR [facility] 2001 hepatitis B pediatri c vaccine FRANCISCA LUCERO [facility] AND SAFET[employer] DIRECTOR-FIELD SERVICE COORDINATOR [facility] Payers Date Payer Category Payer Unknown [id number] 2001 Unknown [id number] [id number] 2001 Unknown [id number] 2.16.8 [id number] 2001 Unknown [id number] 2.16.8 [id number] 2001 Unknown [id number] 2.16.8 [id number] 2001 Unknown [id number] 2.16.8 [id number] 2001 Unknown [id number] 2.16.8 [id number] Social History Date Type Detail Facility Start: 03-06-2019 Ex-smoker (finding) [facility] Sex Assigned At [facility] Functional Status Date Assessment Result Facility 03-26-2024 Functional Status ID band on, Call device within reach, Bed in low position [facility] 03-16-2023 Functional Status ID band on, Call device within reach, Bed in low position, Wheels locked, Upper/Half-Length side-rails up, Phone within reach, Visitor at bedside, Safety level maintained [facility] 09-09-2022 Functional Status Up ad rita [facility] 08-12-2022 Functional Status Room check performed [facility] 05-06-2022 Functional Status Standard Safet y ID band on, Call device within reach, Bed in low position, Wheels locked, Upper/Half-Length side-rails up, Bedside Cart Locked, Safety level maintained [facility] Mental Status Date Assessment Result Facility 03-26-2024 Mental Status Oriented x 4 [facility] 03-16-2023 Mental Status Oriented x 4 [facility] 09-09-2022 Mental Status Oriented x 4 [facility] 08-12-2022 Mental Status Oriented x 4 [facility] 05-06-2022 Mental Status Orientation Oriented x 4 [facility] Clinical Notes 10-18-2020 to 03-27-2024 LaboratoryRadiologyLaboratoryRadiologyLaboratoryRadiologyRadiologyRadiologyRadio logyLaboratoryRadiologyRadiologyLaboratoryRadiology Note Date & Type Note Facility 03-27-2024 Note ORIGINAL EXAMINATION: HIDA03/27/2024 1:32 pm TECHNIQUE: The patient received an intravenous injection of 5.3 mCi of Tc-99m mebrofenin (Choletec). Sequential planar images of the upper abdomen were then acquired over the next 60 minutes. An intravenous infusion of the cholecystokinin (CCK) analogue, Kinevac was then administered followed by an additional period of imaging. Computer quantification of gallbladder emptying was performed. COMPARISON: Ultrasound abdomen 02/14/2024 HISTORY: ORDERING SYSTEM PROVIDED HISTORY: Reason for Exam: gallbladder sludge, right upper abd quadrant pain EPIGASTRIC PAINELVATED ALT FINDINGS: There is prompt accumulation of activity within the liver and normal subsequent excretion via the biliary ductal system into the small bowel. The gallbladder first visualizes at about 15 minutes after radiopharmaceutical injection. Subsequent filling of the gallbladder is somewhat slow, until about 90 minutes where prominent activity seen. After stimulation, there is essentially no contraction of gallbladder or anterograde transit of activity into the small bowel. The gallbladder ejection fraction is calculated to be 8 % (normal above 35%). IMPRESSION: 1. Findings above suggesting chronic cholecystitis with delayed filling of the gallbladder and an ejection fraction of 8% after Kinevac stimulation. 2. No evidence of acute cholecystitis. 3. Patent common bile duct. 4. Normal hepatic function. I have personally reviewed the images of this examination and agree with the resident's findings and interpretation. Interpreted by: Gabriel Nielsen DO Preliminary Report By: Chacho Angelo Electronically signed By Gabriel Nielsen DO Dictated Date: 03/27/2024 1:36:37 PM Prelim Date: 03/27/2024 2:06:06 PM Sign Date: 03/27/2024 2:06:06 PM Ordering Provider: CORRINA ADAME [facility] 03-26-2024 Hospital Discharge instructions Patient Education 03/26/2024 19:50:55 Abdominal Pain, Unknown Cause, (Male) Unknown Causes of Abdominal Pain (Male) Based on your visit today, the exact cause of your abdominal pain is not clear. Your exam and tests don't suggest a dangerous cause at this time. However, the signs of a serious problem may take more time to appear. Although your evaluation was reassuring today, sometimes early in the course of many conditions, exam and lab tests can appear normal. Therefore, it is important for you to watch for any new symptoms or worsening of your condition. It may not be obvious what caused your symptoms. Pay attention to things that do seem to make your symptoms worse or better and discuss this with your doctor when you follow up. The evaluation of abdominal pain in the emergency department may only require an exam by the doctor or it may include blood, urine or imaging studies, depending on many factors. Sometimes exams and tests can identify a cause but in many cases, a clear cause is not found. Further testing at follow up visits may help to suggest a clear diagnosis. Home care Rest as much as you can until your next exam. Try to avoid any medicines (unless otherwise directed by your doctor), foods, activities, or other factors that may have contributed to your symptoms. Try to eat foods that you know that you have tolerated well in the past. Certain diets may be recommended for some conditions that cause abdominal pain. However, since the cause of your symptoms may not be clear, discuss your diet more with your healthcare provider or specialist for further recommendations. If you have diarrhea, it may help to avoid dairy (lactose) for the time being. A low fat, low fiber diet can also help. Eating several small meals per day as opposed to 2 or 3 larger meals may help. Avoid dehydration. Make sure to drink plenty of water. Other options include broth, soup, gelatin, sports drinks, or other clear liquids. Watch closely for anything that may make your symptoms worse or better. Pay close attention to symptoms below that may mean your condition is getting worse. Follow-up care Follow up with your healthcare provider if your symptoms are not improving, or as advised. In some cases, you may need more testing. When to seek medical advice Call your healthcare provider right away if any of these occur: Pain is becoming worse You are unable to take your medicines or can't keep water down due to excessive vomiting Swelling of the abdomen Fever of 100.4 F (38 C) or higher, or as directed by your healthcare provider Blood in vomit or bowel movements (dark red or black color) Jaundice (yellow color of eyes and skin) New onset of weakness, dizziness or fainting New onset of chest, arm, back, neck or jaw pain [id number] [employer] [address] [place] [address]. All rights reserved. This information is not intended as a substitute for professional medical care. Always follow your healthcare professional's instructions. Follow Up Care 03/26/2024 18:59:02 With:CORRINA ADAME Address: [address] [place] [address] [phone] When:2-4 days [facility] 03-26-2024 Note Discharge Instructions Thank you for allowing [facility] to assist you with your healthcare needs. The following is important discharge information regarding your hospital visit. Diagnosis from Today's Visit Abdominal pain What to Do Next Instructions from Your Care Team No qualifying data available. Post Acute Orders No qualifying data available. You Need to Schedule the Following Appointments Follow Up with CORRINA ADAME When:Within 2-4 days Where:[address] [place] [address] [phone] Allergies NKA Medications Please ask your primary doctor or pharmacist before taking any other medication not listed, including over the counter drugs, herbal medications, vitamins and or supplements as they may interact with your home medications. What How Much When Why Instructions Last Dose Unchanged albuterol (albuterol MDI (90 mcg/ inh) CFC free inhalation aerosol) 2 puff(s) by inhalation Every 4 hours as needed for as needed for wheezing Cough Wheezing Duration: 30 Days Unchanged amitriptyline (amitriptyline 25 mg oral tablet) 1 tab(s) by mouth Daily at bedtime Depression Anxiety Duration: 90 Days Unchanged cyclobenzaprine (cyclobenzaprine 10 mg oral tablet) 1 tab(s) by mouth Three (3) times a day as needed for Pain Duration: 30 Days TAKE 1 TABLET BY MOUTH THREE TIMES A DAY NEEDED X10 DAY(S)FOR MUSCLE SPASM Unchanged DULoxetine (Cymbalta 30 mg oral delayed release capsule) 1 cap by mouth Once a day Depression Chest discomfort Duration: 90 Days Unchanged ergocalciferol (Vitamin D2 1.25 mg (50,000 intl units) oral capsule) 1 cap by mouth Every week Vitamin D deficiency Unchanged fluticasone (fluticasone 44 mcg/ inh inhalation aerosol) 2 puff(s) by inhalation Two (2) times a day Chronic shortness of breath Duration: 30 Days Unchanged ibuprofen (ibuprofen 200 mg oral tablet) TAKE 3 TABLETS BY MOUTH EVERY 6 HOURS FOR 7 DAYS NEEDED FOR PAIN Please take this list to your next doctor s visit. Bring all medications you take, including over the counter medications, herbals and other supplements with you to your doctor s visit. Patients and families are reminded to discard old lists and to update any records with all medication providers or retail pharmacies. Education Materials Unknown Causes of Abdominal Pain (Male) Based on your visit today, the exact cause of your abdominal pain is not clear. Your exam and tests don't suggest a dangerous cause at this time. However, the signs of a serious problem may take more time to appear. Although your evaluation was reassuring today, sometimes early in the course of many conditions, exam and lab tests can appear normal. Therefore, it is important for you to watch for any new symptoms or worsening of your condition. It may not be obvious what caused your symptoms. Pay attention to things that do seem to make your symptoms worse or better and discuss this with your doctor when you follow up. The evaluation of abdominal pain in the emergency department may only require an exam by the doctor or it may include blood, urine or imaging studies, depending on many factors. Sometimes exams and tests can identify a cause but in many cases, a clear cause is not found. Further testing at follow up visits may help to suggest a clear diagnosis. Home care Rest as much as you can until your next exam. Try to avoid any medicines (unless otherwise directed by your doctor), foods, activities, or other factors that may have contributed to your symptoms. Try to eat foods that you know that you have tolerated well in the past. Certain diets may be recommended for some conditions that cause abdominal pain. However, since the cause of your symptoms may not be clear, discuss your diet more with your healthcare provider or specialist for further recommendations. If you have diarrhea, it may help to avoid dairy (lactose) for the time being. A low fat, low fiber diet can also help. Eating several small meals per day as opposed to 2 or 3 larger meals may help. Avoid dehydration. Make sure to drink plenty of water. Other options include broth, soup, gelatin, sports drinks, or other clear liquids. Watch closely for anything that may make your symptoms worse or better. Pay close attention to symptoms below that may mean your condition is getting worse. Follow-up care Follow up with your healthcare provider if your symptoms are not improving, or as advised. In some cases, you may need more testing. When to seek medical advice Call your healthcare provider right away if any of these occur: Pain is becoming worse You are unable to take your medicines or can't keep water down due to excessive vomiting Swelling of the abdomen Fever of 100.4 F (38 C) or higher, or as directed by your healthcare provider Blood in vomit or bowel movements (dark red or black color) Jaundice (yellow color of eyes and skin) New onset of weakness, dizziness or fainting New onset of chest, arm, back, neck or jaw pain [id number] [employer]. [address] [place] [address], [place] [address]. All rights reserved. This information is not intended as a substitute for professional medical care. Always follow your healthcare professional's instructions. Additional Information VACCINATE! IT SAVES LIVES! Members of the community who have not yet received the COVID-19 vaccine and would like to receive it can visit one of [facility] vaccine clinics. There are many vaccine clinic locations within the [facility]. For locations and available times, please visit [email or web address] It is important to note that some COVID mobile vaccine clinics are held outdoors and may be canceled in rainy or stormy conditions. To learn more about pediatric vaccinations (ages 5-11), we invite you to visit the [facility] webpage. https://www.[email or web address].org/pag [email or web address]-Vwkvb-Dpixbzikuwe-Frequent ao-Qgvih-Eseqrlryl.html To learn more about the COVID-19 vaccine, we invite you to visit the CDC website for a list of frequently asked questions. https://www.cdc.gov/coronavirus/-ncov/vaccines/faq.html [facility] Patient Portal Access Instructions: Stay connected with your healthcare team and access your personal medical information anytime with the [facility] Patient Portal. If you would like a full copy of your medical records please contact the [facility] Medical Records Department Wednesday through Wednesday between 8a.m. and 4:30p.m. Please follow the directions below to access the portal: 1.Access the email account you provided upon registration to the hospital.2.Look for an invitation email from [facility].3.Open the email and access the invitation link: Accept Invitation to [facility]4.Fill in the required gonsales to create your account. Sign into [email or web address] with your username and password that you created in the above steps to stay up to date. You can then view a summary of results, a summary of your visits, and the ability to download your summaries to your computer or send the information securely to a physician. Remember that your healthcare information is confidential, so carefully consider who you will allow to register on the [employer] Patient Portal for access to your information. You can also access the [facility] Patient Portal on the [employer] colten. Simply click on Health Records under Health Data and then click on the [employer] logo. HOW TO SAFELY DISPOSE OF PRESCRIPTION MEDICATIONS Please use one of the following methods to safely dispose of your unused medications. 1.Use a drug disposal kit: the drug disposal pouch allows you to safely discard your old and unused drugs. Ask your nurse to give you one when you are discharged.2.Visit a local take-back location: Many local pharmacies and police departments have programs that collect old and unwanted prescription drugs. Call your local pharmacy or go to http://bit.ly/5S4Om5l to find one close to you.3.Make use of household items: Use cat litter or old coffee grounds to dispose medications if other options are not available. Mix your drugs with these household products, seal them in an airtight container and throw it into the garbage. Call [facility]: [phone] to be sure your drugs can be disposed of in this way. Some medicines may require a different approach.4.Never flush your medications down the toilet. IF YOU HAVE BEEN PRESCRIBED AN OPIOIDS FOR PAIN If you have been prescribed an opioid (such as hydrocodone, oxycodone or morphine), it is critical to understand the possible side effects and risks of opioid pain medications. Even when taken as directed, opioids can have several side effects including: Tolerance, meaning you might need to take more of a medication for the same pain relief. Nausea, vomiting and/or constipation. Sleepiness, dizziness, dry mouth, confusion, depression or itching. Physical dependence, meaning you have withdrawal symptoms when a medication is stopped ? this can develop within a few days. KNOW YOUR RESPONSIBILITIES It is important to know exactly how much and how often to take the opioid pain medications you are prescribed. Never take opioids in higher amounts or more often than prescribed. Do not combine opioids with alcohol or other drugs that cause drowsiness, such as benzodiazepines, also known as benzos, including diazepam and alprazolam, muscle relaxants or sleep aids. Never sell or share prescription opioids. This is illegal. Store opioids in a secure place and out of reach of others (including children, family, friends and visitors). The last page(s) of this document has been signed and retained as a CHART COPY Signatures Patient Education Materials Abdominal Pain, Unknown Cause, (Male) Medication Leaflets My discharge plan and instructions have been reviewed and explained to me and ISRUTHI SETH J understand my current condition and have read and understand these discharge instructions. I have received a written copy of the plan/instructions. If I have questions, I am aware that I should contact my doctor. 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 HISTORY: ORDERING SYSTEM PROVIDED HISTORY: Reason for Exam: elevated ALT, elevated cholesterol FINDINGS: LIVER: The liver demonstrates diffuse increased echogenicity without evidence of intrahepatic biliary ductal dilatation. Liver measures 19.8 cm in greatest dimension. BILIARY SYSTEM: Gallbladder is distended contains echogenic dependent sludge. There is no gallbladder wall thickening or ultrasound Pineda sign. Common bile duct is within normal limits measuring 3.4 mm. RIGHT KIDNEY: The right kidney is grossly unremarkable without evidence of hydronephrosis. Right kidney measures 10.8 x 5.9 x 5.9 cm. There is appropriate renal cortical thickness and echotexture without hydronephrosis or stone disease. PANCREAS: Pain OTHER: No evidence of right upper quadrant ascites. IMPRESSION: 1. Diffuse fatty infiltration of the liver. 2. Gallbladder sludge without sonographic evidence for acute cholecystitis. Interpreted by: Shaheen Cosme DO Preliminary Report By: Shhaeen Cosme DO Electronically signed By Shaheen Cosme DO Dictated Date: 02/14/2024 4:08:06 PM Prelim Date: 02/14/2024 4:09:41 PM Sign Date: 02/14/2024 4:09:41 PM Ordering Provider: CORRINA ADAME [facility] 07-21-2023 Evaluation + Plan note Future Scheduled TestsThyroid Stimulating Hormone 07/21/23Free T4 07/21/23A1C Hemoglobin 07/21/23Complete Blood Count 07/21/23Complete Metabolic Panel 07/21/23CT Thorax w/o Contrast 08/13/23US Abdomen Limited 02/09/24 [facility] 07-21-2023 Evaluation + Plan note Future Scheduled TestsThyroid Stimulating Hormone 07/21/23Free T4 07/21/23A1C Hemoglobin 07/21/23Complete Blood Count 07/21/23Complete Metabolic Panel 07/21/23CT Thorax w/o Contrast 08/13/23NM Hepatobiliary Duct System Imaging 02/14/24 [facility] 07-21-2023 Evaluation + Plan note Future Scheduled TestsThyroid Stimulating Hormone 07/21/23Free T4 07/21/23A1C Hemoglobin 07/21/23Complete Blood Count 07/21/23Complete Metabolic Panel 07/21/23CT Thorax w/o Contrast 08/13/23 [facility] 03-16-2023 Hospital Discharge instructions Patient Education 03/16/2023 16:48:10 Dental Pain Dental Pain A crack or cavity in a tooth can cause tooth pain. This is because the crack or cavity exposes the sensitive inner area of the tooth. An infection in the gum or the root of the tooth can cause pain and swelling. The pain is often made worse when you drink hot or cold beverages. It can also be worse when you bite on hard foods. Pain may spread from the tooth to your ear or the area of the jaw on the same side. Home care Follow these tips when caring for yourself at home: Don't have hot and cold foods and drinks. Your tooth may be sensitive to changes in temperature. Use toothpaste made for sensitive teeth. [place] gently up and down instead of sideways. Brushing sideways can wear away root surfaces if they are exposed. If your tooth is chipped or cracked, or if there is a large open cavity, put oil of cloves directly on the tooth to relieve pain. You can buy oil of cloves at [facility]. Some pharmacies carry an plew-xwu-jxfjbsv toothache kit. This contains a paste that you can put on the exposed tooth to make it less sensitive. Put a cold pack on your jaw over the sore area to help reduce pain. You may use zbio-ysn-alrldgr medicine to ease pain, unless your doctor prescribed another medicine. If you have chronic liver or kidney disease, talk with your healthcare provider before using acetaminophen or ibuprofen. Also talk with your provider if you ve had a stomach ulcer or GI bleeding. If you have signs of an infection, you will be given an antibiotic. Take it as directed. Follow-up care Follow up with your dentist, or as advised. Your pain may go away with the treatment given today. But only a dentist can fully look at and treat the cause of your pain. This will keep the pain from coming back. Call 911 Call 911 if any of these occur: Unusual drowsiness Headache or stiff neck Weakness or fainting Difficulty swallowing or breathing When to seek medical advice Call your health care provider right away if any of these occur: Your face becomes swollen or red Pain gets worse or spreads to your neck Fever of 100.4 F (38.0 C) or higher, or as directed by your healthcare provider Pus drains from the tooth [id number] [employer]. [address] [place], [place] [address]. All rights reserved. This information is not intended as a substitute for professional medical care. Always follow your healthcare professional's instructions. 03/16/2023 16:48:07 Hypertension, To Be Confirmed High Blood Pressure, To Be Confirmed, No Treatment Your blood pressure today was higher than normal. Sometimes anxiety or pain can cause a temporary rise in blood pressure. It later returns to normal. Blood pressure that is high only one time doesn t mean that you have high blood pressure (hypertension). High blood pressure is a chronic illness. But you should have your blood pressure measured again within the next few days to find out if it s still high. Blood pressure measurements are given as 2 numbers. Systolic blood pressure is the upper number. This is the pressure when the heart contracts. Diastolic blood pressure is the lower number. This is the pressure when the heart relaxes between beats. You will see your blood pressure readings written together. For example, a person with a systolic pressure of 118 and a diastolic pressure of 78 will have 118/78 written in the medical record. Blood pressure is categorized as normal, elevated, or stage 1 or stage 2 high blood pressure: Normal blood pressure is systolic of less than 120 and diastolic of less than 80 (120/80) Elevated blood pressure is systolic of 120 to 129 and diastolic less than 80 Stage 1 high blood pressure is systolic is 130 to 139 or diastolic between 80 to 89 Stage 2 high blood pressure is when systolic is 140 or higher or the diastolic is 90 or higher Lifestyle changes such as weight loss, exercise, and quitting smoking, can help manage your blood pressure. Have your blood pressure checked regularly to be sure it is under control. Home care To track your blood pressure, your provider may ask you to come into the office at different times and on different days. If your healthcare provider asks you to check your readings at home, ask him or her what times of the day to test and for how many days. Before you leave the office, ask your provider to show you how to take your blood pressure and be sure to ask questions if you don't understand something. Consider buying an automatic blood pressure monitor. Ask your provider for a recommendation as well as the proper size cuff to fit your arm. You can buy blood pressure monitors at most pharmacies. The [employer] recommends the following guidelines for home blood pressure monitoring: Don't smoke or drink coffee or other caffeinated drinks for 30 minutes before taking your blood pressure. Go to the bathroom before the test. Relax for 5 minutes before taking the measurement. Sit with your back supported (don't sit on a couch or soft chair); keep your feet on the floor uncrossed. Place your arm on a solid flat surface (like a table) with the upper part of the arm at heart level. Place the middle of the cuff directly above the bend of the elbow. Check the monitor's instruction manual for an illustration. Take multiple readings. When you measure, take 2 to 3 readings one minute apart and record all of the results. Take your blood pressure at the same time every day, or as your healthcare provider recommends. Record the date, time, and blood pressure reading. Take the record with you to your next medical appointment. If your blood pressure monitor has a built-in memory, simply take the monitor with you to your next appointment. Call your provider if you have several high readings. Don't be frightened by a single high blood pressure reading, but if you get several high readings, check in with your healthcare provider. Note: When blood pressure reaches a systolic (top number) of 180 or higher OR diastolic (bottom number) of 110 or higher, seek emergency medical treatment. Follow-up care Keep all of your follow up appointments. If your blood pressure is more than 120 over 80 on 2 out of 3 days, you will need to follow up with your healthcare provider for more evaluation and treatment. Don t put this off! High blood pressure can be treated. High blood pressure that s not treated raises your risk for heart attack, heart failure, and stroke. When to seek medical advice Call your healthcare provider right away if any of these occur: Blood pressure reaches a systolic (top number) of 180 or higher, OR diastolic (bottom number) of 110 or higher Chest pain or shortness of breath Severe headache Throbbing or rushing sound in the ears Nosebleed Sudden severe pain in your belly (abdomen) Extreme drowsiness, confusion, or fainting Dizziness or dizziness with spinning sensation (vertigo) Weakness of an arm or leg or one side of the face You have problems speaking or seeing [id number] [employer]. [address] [place] [address]. All rights reserved. This information is not intended as a substitute for professional medical care. Always follow your healthcare professional's instructions. Follow Up Care 03/16/2023 16:22:26 With:Dental Referral List Address:Unknown When:2-4 days Comments:Schedule appointment as soon as possibleReturn to ED if symptoms worsenCoat tooth with sensodyne for 2 min 4x/day. May useoragel and tylenol With:CORRINA ADAME Address: [address] [place] [address] [phone] Business (1) When:2-4 days Comments:Schedule appointment as soon as possibleFollow up for blood pressure [facility] 03-16-2023 Note Discharge Instructions Thank you for allowing [facility] to assist you with your healthcare needs. The following is important discharge information regarding your hospital visit. Diagnosis from Today's Visit Hypertension Pain in tooth Toothache What to Do Next Instructions from Your Care Team No qualifying data available. Post Acute Orders No qualifying data available. You Need to Schedule the Following Appointments Follow Up with Dental Referral List When Within 2-4 days Why: Schedule appointment as soon as possible Return to ED if symptoms worsen Coat tooth with sensodyne for 2 min 4x/day. May useoragel and tylenol Follow Up with CORRINA ADAME When Within 2-4 days Why: Schedule appointment as soon as possible Follow up for blood pressure Where: [address] [place] [address] [phone] Business (1) Allergies NKA Medications Please ask your primary doctor or pharmacist before taking any other medication not listed, including over the counter drugs, herbal medications, vitamins and or supplements as they may interact with your home medications. What How Much When Why Instructions Last Dose New naproxen (naproxen 500 mg oral tablet) 1 tab(s) by mouth Two (2) times a day as needed for as needed for pain prn with food Printed Prescription New penicillin V potassium (penicillin V potassium 500 mg oral tablet) 1 tab(s) by mouth Four (4) times a day Duration: 14 Days Printed Prescription Unchanged albuterol (albuterol MDI (90 mcg/ inh) CFC free inhalation aerosol) 2 puff(s) by inhalation Every 4 hours as needed for as needed for wheezing Cough Wheezing Duration: 30 Days Unchanged amitriptyline (amitriptyline 25 mg oral tablet) 1 tab(s) by mouth Daily at bedtime Depression Anxiety Duration: 90 Days Unchanged benzonatate (benzonatate 100 mg oral capsule) TAKE 1 CAPSULE BY MOUTH 3 TIMES A DAY FOR 7 DAY Unchanged ergocalciferol (Vitamin D2 1.25 mg (50,000 intl units) oral capsule) 1 cap by mouth Every week Rib pain on left side Vitamin D deficiency Duration: 90 Days Unchanged FLUoxetine (FLUoxetine 20 mg oral capsule) 1 cap by mouth Once a day Polyarthralgia Depression Duration: 30 Days Unchanged fluticasone (fluticasone CFC free 44 mcg/ inh inhalation aerosol) 2 puff(s) by inhalation Two (2) times a day Chronic shortness of breath Duration: 30 Days Unchanged ibuprofen (ibuprofen 200 mg oral tablet) TAKE 3 TABLETS BY MOUTH EVERY 6 HOURS FOR 7 DAYS NEEDED FOR PAIN Unchanged lidocaine topical (lidocaine 5% topical patch) 1 patch(es) Topical Once a day remove patches after 12 hours Unchanged SUMAtriptan (SUMAtriptan 50 mg oral tablet) 1 tab(s) by mouth Once a day as needed for as needed for migraine headache 1 tab onset , may repeat in 2 hrs. MAX 4 tab(s)/ 24hrs Please take this list to your next doctor s visit. Bring all medications you take, including over the counter medications, herbals and other supplements with you to your doctor s visit. Patients and families are reminded to discard old lists and to update any records with all medication providers or retail pharmacies. Medication Leaflets penicillin V potassium (oral) (PEN i HAKAN in V lalitha TAS ee um) What is the most important information I should know about penicillin V potassium? You should not be treated with this medicine if you are allergic to penicillin. What is penicillin V potassium? Penicillin V potassium is a slow-onset antibiotic that is used to treat many types of mild to moderate infections caused by bacteria, including scarlet fever, pneumonia, skin infections, and infections affecting the nose, mouth, or throat. Penicillin V potassium is also used to prevent the symptoms of rheumatic fever. Penicillin V potassium is also used to prevent infections of the heart valves in people with certain heart conditions who need to have dental work or surgery. Penicillin V potassium may also be used for purposes not listed in this medication guide. What should I discuss with my healthcare provider before taking penicillin V potassium? You should not be treated with this medicine if you are allergic to penicillin. Tell your doctor if you have ever had: an allergic reaction to a cephalosporin antibiotic (Keflex, Omnicef, and others); any type of allergy; asthma or breathing problems; a stomach or intestinal disorder; heart disease; or kidney disease. If you have stomach problems or are sick with severe vomiting or diarrhea, your medication may not be as effective. Penicillin V potassium oral liquid may contain phenylalanine. Tell your doctor if you have phenylketonuria (PKU). Tell your doctor if you are or . Do not give this medicine to a child without medical advice. How should I take penicillin V potassium? Follow all directions on your prescription label and read all medication guides or instruction sheets. Use the medicine exactly as directed. You may take penicillin V potassium with or without food. Shake the oral liquid before you measure a dose. Use the dosing syringe provided, or use a medicine dose-measuring device (not a kitchen spoon). When given before surgery or dental work, penicillin V potassium is usually taken 1 hour before and 6 hours after the procedure. Follow your doctor's dosing instructions very carefully. Use this medicine for the full prescribed length of time, even if your symptoms quickly improve. Skipping doses can increase your risk of infection that is resistant to medication. Penicillin V potassium will not treat a viral infection such as the flu or a common cold. After you have finished all doses, your doctor may want to do tests to make sure your infection has completely cleared up. Store the tablets at room temperature away from moisture, heat, and light. Store the liquid in a refrigerator. Do not freeze. Throw away any unused liquid after 14 days. What happens if I miss a dose? Take the medicine as soon as you can, but skip the missed dose if it is almost time for your next dose. Do not take two doses at one time. What happens if I overdose? Seek emergency medical attention or call the Poison Help line at . What should I avoid while taking penicillin V potassium? Do not share this medicine with another person, even if they have the same symptoms you have. Antibiotic medicines can cause diarrhea, which may be a sign of a new infection. If you have diarrhea that is watery or bloody, call your doctor before using anti-diarrhea medicine. What are the possible side effects of penicillin V potassium? Get emergency medical help if you have signs of an allergic reaction: hives; fever, chills, joint pain; difficult breathing; swelling of your face, lips, tongue, or throat. Call your doctor at once if you have: severe stomach pain, diarrhea that is watery or bloody (even if it occurs months after your last dose); easy bruising or bleeding; pale or yellowed skin, dark colored urine; numbness, tingling, or burning pain; urination problems; or fever, swollen glands, itching, joint pain, or not feeling well. Common side effects may include: nausea, vomiting, upset stomach; diarrhea; swollen, black, or 'hairy' tongue; rash; or vaginal itching or discharge. This is not a complete list of side effects and others may occur. Call your doctor for medical advice about side effects. You may report side effects to FDA at 7-001-EAA-5581. What other drugs will affect penicillin V potassium? Penicillin V potassium can make control pills less effective. Ask your doctor about using a non-hormonal control (condom, diaphragm with spermicide) to prevent . Other drugs may affect penicillin V potassium, including prescription and poui-yhq-lmwivgo medicines, vitamins, and herbal products. Tell your doctor about all your current medicines and any medicine you start or stop using. Where can I get more information? Your doctor or pharmacist can provide more information about penicillin V potassium. Remember, keep this and all other medicines out of the reach of children, never share your medicines with others, and use this medication only for the indication prescribed. Every effort has been made to ensure that the information provided by [employer]. ('[employer]') is accurate, up-to-date, and complete, but no guarantee is made to that effect. Drug information contained herein may be time sensitive. [employer] information has been compiled for use by healthcare practitioners and consumers in the [place] and therefore [employer] does not warrant that uses outside of the [place] are appropriate, unless specifically indicated otherwise. [employer]'s drug information does not endorse drugs, diagnose patients or recommend therapy. [employer] drug information is an informational resource designed to assist licensed healthcare practitioners in caring for their patients and/or to serve consumers viewing this service as a supplement to, and not a substitute for, the expertise, skill, knowledge and judgment of healthcare practitioners. The absence of a warning for a given drug or drug combination in no way should be construed to indicate that the drug or drug combination is safe, effective or appropriate for any given patient. [employer] does not assume any responsibility for any aspect of healthcare administered with the aid of information [employer] provides. The information contained herein is not intended to cover all possible uses, directions, precautions, warnings, drug interactions, allergic reactions, or adverse effects. If you have questions about the drugs you are taking, check with your doctor, nurse or pharmacist. Copyright 3037-5622 [employer]. Version: 2.01. Revision Date: 04/24/2019. naproxen (na PROX en) Aleve, Aleve Back and Muscle Pain, Aleve Easy Open Arthritis, Aleve Liquid Gels, Anaprox-DS, EC-Naprosyn, Naprelan, Naprosyn What is the most important information I should know about naproxen? Naproxen can increase your risk of fatal heart attack or stroke. Do not use this medicine just before or after heart bypass surgery (coronary artery bypass graft, or CABG). Naproxen may also cause stomach or intestinal bleeding, which can be fatal. What is naproxen? Naproxen is a nonsteroidal anti-inflammatory drug (NSAID). Naproxen is used to treat pain or inflammation caused by conditions such as arthritis, ankylosing spondylitis, tendinitis, bursitis, gout, or menstrual cramps. The delayed-release or extended-release tablets are slower-acting forms of naproxen that are used only for treating chronic conditions such as arthritis or ankylosing spondylitis. These forms of naproxen will not work fast enough to treat acute pain. Naproxen may also be used for purposes not listed in this medication guide. What should I discuss with my healthcare provider before taking naproxen? Naproxen can increase your risk of fatal heart attack or stroke, even if you don't have any risk factors. Do not use this medicine just before or after heart bypass surgery (coronary artery bypass graft, or CABG). Naproxen may also cause stomach or intestinal bleeding, which can be fatal. These conditions can occur without warning while you are using naproxen, especially in older adults. You should not use naproxen if you are allergic to it, or if you have ever had an asthma attack or severe allergic reaction after taking aspirin or an NSAID. Ask a doctor before giving naproxen to a child younger than 12 years old. Ask a doctor or pharmacist if this medicine is safe to use if you have: heart disease, high blood pressure, high cholesterol, diabetes, or if you smoke; a heart attack, stroke, or blood clot; stomach ulcers or bleeding; asthma; liver or kidney disease; fluid retention; or if you take aspirin to prevent heart attack or stroke. If you are , you should not take naproxen unless your doctor tells you to. Taking an NSAID during the last 20 weeks of can cause serious heart or kidney problems in the unborn baby and possible complications with your . It may not be safe to breastfeed while using this medicine. Ask your doctor about any risk. How should I take naproxen? Use exactly as directed on the label, or as prescribed by your doctor. Use the lowest dose that is effective in treating your condition. Shake the oral suspension (liquid) before you measure a dose. Measure a dose with the supplied measuring device (not a kitchen spoon). Take this medicine with food or milk if it upsets your stomach. Always follow directions on the medicine label about giving this medicine to a child. Naproxen doses are based on weight in children. Your child's dose needs may change if the child gains or loses weight. If you use naproxen long-term, you may need frequent medical tests. This medicine can affect the results of certain medical tests. Tell any doctor who treats you that you are using naproxen. Store at room temperature away from moisture, heat, and light. Keep the bottle tightly closed when not in use. What happens if I miss a dose? Since naproxen is used when needed, you may not be on a dosing schedule. Skip any missed dose if it's almost time for your next dose. Do not use two doses at one time. What happens if I overdose? Seek emergency medical attention or call the Poison Help line at . What should I avoid while taking naproxen? Avoid drinking alcohol. It may increase your risk of stomach bleeding. Avoid taking aspirin or other NSAIDs unless your doctor tells you to. Ask a doctor or pharmacist before using other medicines for pain, fever, swelling, or cold/flu symptoms. They may contain ingredients similar to naproxen (such as aspirin, ibuprofen, or ketoprofen). Ask your doctor before using an antacid, and use only the type your doctor recommends. Some antacids can make it harder for your body to absorb naproxen. What are the possible side effects of naproxen? Get emergency medical help if you have signs of an allergic reaction (runny or stuffy nose, wheezing or trouble breathing, hives, swelling in your face or throat) or a severe skin reaction (fever, sore throat, burning eyes, skin pain, red or purple skin rash with blistering and peeling). Stop using naproxen and seek medical treatment if you have a serious drug reaction that can affect many parts of your body. Symptoms may include skin rash, fever, swollen glands, muscle aches, severe weakness, unusual bruising, or yellowing of your skin or eyes. Get emergency medical help if you have signs of a heart attack or stroke: chest pain spreading to your jaw or shoulder, sudden numbness or weakness on one side of the body, slurred speech, leg swelling, feeling short of breath. Stop using naproxen and call your doctor at once if you have: shortness of breath (even with mild exertion); swelling or rapid weight gain; the first sign of any skin rash or blister, no matter how mild; signs of stomach bleeding--bloody or tarry stools, coughing up blood or vomit that looks like coffee grounds; liver problems--nausea, upper stomach pain, loss of appetite, dark urine, nancy-colored stools, jaundice (yellowing of the skin or eyes); kidney problems--little or no urination, painful urination, swelling in your feet or ankles; or low red blood cells (anemia)--pale skin, unusual tiredness, feeling light-headed or short of breath, cold hands and feet. Common side effects may include: headache; indigestion, heartburn, stomach pain; or flu symptoms; This is not a complete list of side effects and others may occur. Call your doctor for medical advice about side effects. You may report side effects to FDA at 5-422-HAS-8327. What other drugs will affect naproxen? Ask your doctor before using naproxen if you take an antidepressant. Taking certain antidepressants with an NSAID may cause you to bruise or bleed easily. Ask a doctor or pharmacist before using naproxen with any other medications, especially: other NSAIDs or salicylates (diflunisal, salsalate); antacids and sucralfate; cholestyramine; cyclosporine; digoxin; lithium; methotrexate; pemetrexed; probenecid; warfarin (Coumadin, Jantoven) or similar blood thinners; a diuretic or 'water pill'; or heart or blood pressure medication. This list is not complete. Other drugs may affect naproxen, including prescription and djdn-bai-ukktjhr medicines, vitamins, and herbal products. Not all possible drug interactions are listed here. Where can I get more information? Your pharmacist can provide more information about naproxen. Remember, keep this and all other medicines out of the reach of children, never share your medicines with others, and use this medication only for the indication prescribed. Every effort has been made to ensure that the information provided by [employer] ('[employer]') is accurate, up-to-date, and complete, but no guarantee is made to that effect. Drug information contained herein may be time sensitive. [employer] information has been compiled for use by healthcare practitioners and consumers in the [place] and therefore [employer] does not warrant that uses outside of the [place] are appropriate, unless specifically indicated otherwise. [employer] drug information does not endorse drugs, diagnose patients or recommend therapy. [employer] drug information is an informational resource designed to assist licensed healthcare practitioners in caring for their patients and/or to serve consumers viewing this service as a supplement to, and not a substitute for, the expertise, skill, knowledge and judgment of healthcare practitioners. The absence of a warning for a given drug or drug combination in no way should be construed to indicate that the drug or drug combination is safe, effective or appropriate for any given patient. [facility] does not assume any responsibility for any aspect of healthcare administered with the aid of information [facility] provides. The information contained herein is not intended to cover all possible uses, directions, precautions, warnings, drug interactions, allergic reactions, or adverse effects. If you have questions about the drugs you are taking, check with your doctor, nurse or pharmacist. Copyright 3098-3138 [employer]. Version: 22.01. Revision Date: 03/11/2023. Education Materials Dental Pain A crack or cavity in a tooth can cause tooth pain. This is because the crack or cavity exposes the sensitive inner area of the tooth. An infection in the gum or the root of the tooth can cause pain and swelling. The pain is often made worse when you drink hot or cold beverages. It can also be worse when you bite on hard foods. Pain may spread from the tooth to your ear or the area of the jaw on the same side. Home care Follow these tips when caring for yourself at home: Don't have hot and cold foods and drinks. Your tooth may be sensitive to changes in temperature. Use toothpaste made for sensitive teeth. [place] gently up and down instead of sideways. Brushing sideways can wear away root surfaces if they are exposed. If your tooth is chipped or cracked, or if there is a large open cavity, put oil of cloves directly on the tooth to relieve pain. You can buy oil of cloves at [employer]. Some pharmacies carry an wgeg-pqz-ucsuwrb toothache kit. This contains a paste that you can put on the exposed tooth to make it less sensitive. Put a cold pack on your jaw over the sore area to help reduce pain. You may use uqch-hnr-bsbkxaa medicine to ease pain, unless your doctor prescribed another medicine. If you have chronic liver or kidney disease, talk with your healthcare provider before using acetaminophen or ibuprofen. Also talk with your provider if you ve had a stomach ulcer or GI bleeding. If you have signs of an infection, you will be given an antibiotic. Take it as directed. Follow-up care Follow up with your dentist, or as advised. Your pain may go away with the treatment given today. But only a dentist can fully look at and treat the cause of your pain. This will keep the pain from coming back. Call 911 Call 911 if any of these occur: Unusual drowsiness Headache or stiff neck Weakness or fainting Difficulty swallowing or breathing When to seek medical advice Call your health care provider right away if any of these occur: Your face becomes swollen or red Pain gets worse or spreads to your neck Fever of 100.4 F (38.0 C) or higher, or as directed by your healthcare provider Pus drains from the tooth [id number] [employer] [address] [place] [address], [place] [id number]. All rights reserved. This information is not intended as a substitute for professional medical care. Always follow your healthcare professional's instructions. High Blood Pressure, To Be Confirmed, No Treatment Your blood pressure today was higher than normal. Sometimes anxiety or pain can cause a temporary rise in blood pressure. It later returns to normal. Blood pressure that is high only one time doesn t mean that you have high blood pressure (hypertension). High blood pressure is a chronic illness. But you should have your blood pressure measured again within the next few days to find out if it s still high. Blood pressure measurements are given as 2 numbers. Systolic blood pressure is the upper number. This is the pressure when the heart contracts. Diastolic blood pressure is the lower number. This is the pressure when the heart relaxes between beats. You will see your blood pressure readings written together. For example, a person with a systolic pressure of 118 and a diastolic pressure of 78 will have 118/78 written in the medical record. Blood pressure is categorized as normal, elevated, or stage 1 or stage 2 high blood pressure: Normal blood pressure is systolic of less than 120 and diastolic of less than 80 (120/80) Elevated blood pressure is systolic of 120 to 129 and diastolic less than 80 Stage 1 high blood pressure is systolic is 130 to 139 or diastolic between 80 to 89 Stage 2 high blood pressure is when systolic is 140 or higher or the diastolic is 90 or higher Lifestyle changes such as weight loss, exercise, and quitting smoking, can help manage your blood pressure. Have your blood pressure checked regularly to be sure it is under control. Home care To track your blood pressure, your provider may ask you to come into the office at different times and on different days. If your healthcare provider asks you to check your readings at home, ask him or her what times of the day to test and for how many days. Before you leave the office, ask your provider to show you how to take your blood pressure and be sure to ask questions if you don't understand something. Consider buying an automatic blood pressure monitor. Ask your provider for a recommendation as well as the proper size cuff to fit your arm. You can buy blood pressure monitors at most pharmacies. The [employer] recommends the following guidelines for home blood pressure monitoring: Don't smoke or drink coffee or other caffeinated drinks for 30 minutes before taking your blood pressure. Go to the bathroom before the test. Relax for 5 minutes before taking the measurement. Sit with your back supported (don't sit on a couch or soft chair); keep your feet on the floor uncrossed. Place your arm on a solid flat surface (like a table) with the upper part of the arm at heart level. Place the middle of the cuff directly above the bend of the elbow. Check the monitor's instruction manual for an illustration. Take multiple readings. When you measure, take 2 to 3 readings one minute apart and record all of the results. Take your blood pressure at the same time every day, or as your healthcare provider recommends. Record the date, time, and blood pressure reading. Take the record with you to your next medical appointment. If your blood pressure monitor has a built-in memory, simply take the monitor with you to your next appointment. Call your provider if you have several high readings. Don't be frightened by a single high blood pressure reading, but if you get several high readings, check in with your healthcare provider. Note: When blood pressure reaches a systolic (top number) of 180 or higher OR diastolic (bottom number) of 110 or higher, seek emergency medical treatment. Follow-up care Keep all of your follow up appointments. If your blood pressure is more than 120 over 80 on 2 out of 3 days, you will need to follow up with your healthcare provider for more evaluation and treatment. Don t put this off! High blood pressure can be treated. High blood pressure that s not treated raises your risk for heart attack, heart failure, and stroke. When to seek medical advice Call your healthcare provider right away if any of these occur: Blood pressure reaches a systolic (top number) of 180 or higher, OR diastolic (bottom number) of 110 or higher Chest pain or shortness of breath Severe headache Throbbing or rushing sound in the ears Nosebleed Sudden severe pain in your belly (abdomen) Extreme drowsiness, confusion, or fainting Dizziness or dizziness with spinning sensation (vertigo) Weakness of an arm or leg or one side of the face You have problems speaking or seeing [id number] [employer]. [address] [place] [address], [place] [address]. All rights reserved. This information is not intended as a substitute for professional medical care. Always follow your healthcare professional's instructions. Additional Information VACCINATE! IT SAVES LIVES! Members of the community who have not yet received the COVID-19 vaccine and would like to receive it can visit one of [facility] vaccine clinics. There are many vaccine clinic locations within the [facility]. For locations and available times, please visit [email or web address] v/. It is important to note that some COVID mobile vaccine clinics are held outdoors and may be canceled in rainy or stormy conditions. To learn more about pediatric vaccinations (ages 5-11), we invite you to visit the [facility] webpage. https://www.[facility].org/pag es/5827-Thmhx-Fkduhyjufos-Frequent ge-Rzcgx-Myojfogfd.html To learn more about the COVID-19 vaccine, we invite you to visit the CDC website for a list of frequently asked questions. https://www.cdc.gov/coronavirus/20 19-ncov/vaccines/faq.html [facility] Patient Portal Access Instructions: Stay connected with your healthcare team and access your personal medical information anytime with the [facility] Patient Portal. If you would like a full copy of your medical records please contact the [facility] Medical Records Department Wednesday through Wednesday between 8a.m. and 4:30p.m. Please follow the directions below to access the portal: 1.Access the email account you provided upon registration to the hospital.2.Look for an invitation email from [facility].3.Open the email and access the invitation link: Accept Invitation to [facility]4.Fill in the required gonsales to create your account. Sign into [email or web address] with your username and password that you created in the above steps to stay up to date. You can then view a summary of results, a summary of your visits, and the ability to download your summaries to your computer or send the information securely to a physician. Remember that your healthcare information is confidential, so carefully consider who you will allow to register on the [facility] Patient Portal for access to your information. You can also access the [facility] Patient Portal on the InPlace colten. Simply click on Health Records under Health Data and then click on the [employer] logo. HOW TO SAFELY DISPOSE OF PRESCRIPTION MEDICATIONS Please use one of the following methods to safely dispose of your unused medications. 1.Use a drug disposal kit: the drug disposal pouch allows you to safely discard your old and unused drugs. Ask your nurse to give you one when you are discharged.2.Visit a local take-back location: Many local pharmacies and police departments have programs that collect old and unwanted prescription drugs. Call your local pharmacy or go to http://[employer].QuantuModeling/2A3Xp3n to find one close to you.3.Make use of household items: Use cat litter or old coffee grounds to dispose medications if other options are not available. Mix your drugs with these household products, seal them in an airtight container and throw it into the garbage. Call [facility]: [phone] to be sure your drugs can be disposed of in this way. Some medicines may require a different approach.4.Never flush your medications down the toilet. IF YOU HAVE BEEN PRESCRIBED AN OPIOIDS FOR PAIN If you have been prescribed an opioid (such as hydrocodone, oxycodone or morphine), it is critical to understand the possible side effects and risks of opioid pain medications. Even when taken as directed, opioids can have several side effects including: Tolerance, meaning you might need to take more of a medication for the same pain relief. Nausea, vomiting and/or constipation. Sleepiness, dizziness, dry mouth, confusion, depression or itching. Physical dependence, meaning you have withdrawal symptoms when a medication is stopped ? this can develop within a few days. KNOW YOUR RESPONSIBILITIES It is important to know exactly how much and how often to take the opioid pain medications you are prescribed. Never take opioids in higher amounts or more often than prescribed. Do not combine opioids with alcohol or other drugs that cause drowsiness, such as benzodiazepines, also known as benzos, including diazepam and alprazolam, muscle relaxants or sleep aids. Never sell or share prescription opioids. This is illegal. Store opioids in a secure place and out of reach of others (including children, family, friends and visitors). The last page(s) of this document has been signed and retained as a CHART COPY Signatures Patient Education Materials Dental Pain Hypertension, To Be Confirmed Medication Leaflets penicillin V potassium (oral), naproxen My discharge plan and instructions have been reviewed and explained to me and I,LOGAN NEGOR understand my current condition and have read and understand these discharge instructions. I have received a written copy of the plan/instructions. If I have questions, I am aware that I should contact my doctor. 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 Other symptoms depend on the part of the body that the virus affects. If it settles in your nose, throat, and lungs, it may cause cough, sore throat, congestion, runny nose, headache, earache and other ear symptoms, or shortness of breath. If it settles in your stomach and intestinal tract, it may cause nausea, vomiting, cramping, and diarrhea. Sometimes it causes generalized symptoms like aching all over, feeling tired, loss of energy, or loss of appetite. A viral illness usually lasts anywhere from several days to several weeks, but sometimes it lasts longer. In some cases, a more serious infection can look like a viral syndrome in the first few days of the illness. You may need another exam and additional tests to know the difference. Watch for the warning signs listed below for when to seek medical advice. Home care Follow these guidelines for taking care of yourself at home: If symptoms are severe, rest at home for the first 2 to 3 days. Stay away from cigarette smoke - both your smoke and the smoke from others. You may use ukvg-ugx-iuvspmt acetaminophen or ibuprofen for fever, muscle aching, and headache, unless another medicine was prescribed for this. If you have chronic liver or kidney disease or ever had a stomach ulcer or gastrointestinal bleeding, talk with your healthcare provider before using these medicines. No one who is younger than 18 and ill with a fever should take aspirin. It may cause severe disease or . Your appetite may be poor, so a light diet is fine. Avoid dehydration by drinking 8 to 12, 8-ounce glasses of fluids each day. This may include water; orange juice; lemonade; apple, grape, and cranberry juice; clear fruit drinks; electrolyte replacement and sports drinks; and decaffeinated teas and coffee. If you have been diagnosed with a kidney disease, ask your healthcare provider how much and what types of fluids you should drink to prevent dehydration. If you have kidney disease, drinking too much fluid can cause it build up in the your body and be dangerous to your health. Gdnf-azw-ssrnrvm remedies won't shorten the length of the illness but may be helpful for symptoms such as cough, sore throat, nasal and sinus congestion, or diarrhea. Don't use decongestants if you have high blood pressure. Follow-up care Follow up with your healthcare provider if you do not improve over the next week. Call 911 Call 911 if any of the following occur: Convulsion Feeling weak, dizzy, or like you are going to faint Chest pain, or more than mild shortness of breath When to seek medical advice Call your healthcare provider right away if any of these occur: Cough with lots of colored sputum (mucus) or blood in your sputum Chest pain, shortness of breath, wheezing, or trouble breathing Severe headache; face, neck, or ear pain Severe, constant pain in the lower right side of your belly (abdominal) Continued vomiting (can t keep liquids down) Frequent diarrhea (more than 5 times a day); blood (red or black color) or mucus in diarrhea Feeling weak, dizzy, or like you are going to faint Extreme thirst Fever of 100.4 F (38 C) or higher, or as directed by your healthcare provider [id number] [employer]. [address] [place] [address]. All rights reserved. This information is not intended as a substitute for professional medical care. Always follow your healthcare professional's instructions. Follow Up Care 09/09/2022 16:06:41 With:CORRINA ADAME Address: [address] [place] [address] [phone] When:2-4 days [facility] 09-09-2022 SARS-CoV-2 (COVID-19) RNA ОЛЬГА+probe Ql (Nph) Negative (09/09/22 4:41 PM) AO Auto Urine SS 09-09-2022 Note Discharge Instructions Thank you for allowing [facility] to assist you with your healthcare needs. The following is important discharge information regarding your hospital visit. Diagnosis from Today's Visit Cough Cough What to Do Next Instructions from Your Care Team Please call [phone] for results of test. No qualifying data available. Post Acute Orders No qualifying data available. You Need to Schedule the Following Appointments Follow Up with CORRINA ADAME When Within 2-4 days Where: [address] [place] [phone] Allergies NKA Medications Please ask your primary doctor or pharmacist before taking any other medication not listed, including over the counter drugs, herbal medications, vitamins and or supplements as they may interact with your home medications. What How Much When Why Instructions Last Dose New benzonatate (Tessalon Perles 100 mg oral capsule) 1 cap by mouth Three (3) times a day Cough Duration: 7 Days Printed Prescription Unchanged amitriptyline (amitriptyline 25 mg oral tablet) 1 tab(s) by mouth Daily at bedtime Depression Anxiety Duration: 90 Days Unchanged cyclobenzaprine (cyclobenzaprine 10 mg oral tablet) 1 tab(s) by mouth Three (3) times a day as needed for for muscle spasm Duration: 7 Days Unchanged ergocalciferol (Vitamin D2 1.25 mg (50,000 intl units) oral capsule) 1 cap by mouth Every week Rib pain on left side Vitamin D deficiency Duration: 90 Days Unchanged ibuprofen (ibuprofen 200 mg oral tablet) TAKE 3 TABLETS BY MOUTH EVERY 6 HOURS FOR 7 DAYS NEEDED FOR PAIN Unchanged lidocaine topical (lidocaine 5% topical patch) 1 patch(es) Topical Once a day remove patches after 12 hours Unchanged SUMAtriptan (SUMAtriptan 50 mg oral tablet) 1 tab(s) by mouth Once a day as needed for as needed for migraine headache 1 tab onset , may repeat in 2 hrs. MAX 4 tab(s)/ 24hrs Please take this list to your next doctor s visit. Bring all medications you take, including over the counter medications, herbals and other supplements with you to your doctor s visit. Patients and families are reminded to discard old lists and to update any records with all medication providers or retail pharmacies. Medication Leaflets benzonatate (mercedes nugent) Mayo Vigil What is the most important information I should know about benzonatate? Never suck or chew on a benzonatate capsule. Swallow the pill whole. Sucking or chewing the capsule may cause serious side effects. Benzonatate is not approved for use by anyone younger than 10 years old. An overdose of benzonatate can be fatal to a young child. What is benzonatate? Benzonatate is used to relieve coughing. Benzonatate is a non-narcotic cough medicine that numbs the throat and lungs, making the cough reflex less active. Benzonatate may also be used for purposes not listed in this medication guide. What should I discuss with my healthcare provider before taking benzonatate? You should not use this medicine if you are allergic to benzonatate or topical numbing medicines such as tetracaine or procaine (found in some insect bite and sunburn creams). Tell your doctor if you are or . Benzonatate is not approved for use by anyone younger than 10 years old. An overdose of benzonatate can be fatal, especially to a young child who has accidentally swallowed the medicine. How should I take benzonatate? Follow all directions on your prescription label and read all medication guides or instruction sheets. Use the medicine exactly as directed. Never suck or chew on a benzonatate capsule. Swallow the pill whole. Sucking or chewing the capsule may cause serious side effects. Store at room temperature away from moisture, heat, and light. What happens if I miss a dose? Skip the missed dose and use your next dose at the regular time. Do not use two doses at one time. What happens if I overdose? Seek emergency medical attention or call the Poison Help line at . An overdose of benzonatate can be fatal, especially to a child. Accidental has occurred in children under 10 years old. Overdose symptoms may include tremors, feeling restless, seizure (convulsions), slow heart rate, weak pulse, fainting, and slow breathing (breathing may stop). What should I avoid while taking benzonatate? Avoid eating or drinking anything while you feel numbness or tingling in your mouth or throat. What are the possible side effects of benzonatate? Stop taking this medicine and get emergency medical help if you have signs of an allergic reaction: hives; difficult breathing; swelling of your face, lips, tongue, or throat. Call your doctor at once if you have: severe drowsiness or dizziness; confusion, hallucinations. ongoing numbness or tingling in your mouth, throat, or face; numbness in your chest; a choking feeling; chills; or burning in your eyes. Some of these side effects may result from chewing or sucking on a benzonatate capsule. Common side effects may include: headache, dizziness; nausea, upset stomach; constipation; itching, rash; or stuffy nose. This is not a complete list of side effects and others may occur. Call your doctor for medical advice about side effects. You may report side effects to FDA at 1-889-JNU-2982. What other drugs will affect benzonatate? Using benzonatate with other drugs that make you drowsy can worsen this effect. Ask your doctor before using opioid medication, a sleeping pill, a muscle relaxer, or medicine for anxiety or seizures. Other drugs may affect benzonatate, including prescription and ewni-qxm-ydxbgeu medicines, vitamins, and herbal products. Tell your doctor about all your current medicines and any medicine you start or stop using. Where can I get more information? Your pharmacist can provide more information about benzonatate. Remember, keep this and all other medicines out of the reach of children, never share your medicines with others, and use this medication only for the indication prescribed. Every effort has been made to ensure that the information provided by [employer]. ('[employer]') is accurate, up-to-date, and complete, but no guarantee is made to that effect. Drug information contained herein may be time sensitive. [employer] information has been compiled for use by healthcare practitioners and consumers in the [place] and therefore [employer] does not warrant that uses outside of the [place] are appropriate, unless specifically indicated otherwise. [employer]'s drug information does not endorse drugs, diagnose patients or recommend therapy. [facility] drug information is an informational resource designed to assist licensed healthcare practitioners in caring for their patients and/or to serve consumers viewing this service as a supplement to, and not a substitute for, the expertise, skill, knowledge and judgment of healthcare practitioners. The absence of a warning for a given drug or drug combination in no way should be construed to indicate that the drug or drug combination is safe, effective or appropriate for any given patient. [employer] does not assume any responsibility for any aspect of healthcare administered with the aid of information [employer] provides. The information contained herein is not intended to cover all possible uses, directions, precautions, warnings, drug interactions, allergic reactions, or adverse effects. If you have questions about the drugs you are taking, check with your doctor, nurse or pharmacist. Copyright 0437-8806 [employer]. Version: 9.01. Revision Date: 05/18/2019. Education Materials Viral Syndrome (Adult) A viral illness may cause a number of symptoms such as fever. Other symptoms depend on the part of the body that the virus affects. If it settles in your nose, throat, and lungs, it may cause cough, sore throat, congestion, runny nose, headache, earache and other ear symptoms, or shortness of breath. If it settles in your stomach and intestinal tract, it may cause nausea, vomiting, cramping, and diarrhea. Sometimes it causes generalized symptoms like aching all over, feeling tired, loss of energy, or loss of appetite. A viral illness usually lasts anywhere from several days to several weeks, but sometimes it lasts longer. In some cases, a more serious infection can look like a viral syndrome in the first few days of the illness. You may need another exam and additional tests to know the difference. Watch for the warning signs listed below for when to seek medical advice. Home care Follow these guidelines for taking care of yourself at home: If symptoms are severe, rest at home for the first 2 to 3 days. Stay away from cigarette smoke - both your smoke and the smoke from others. You may use hrfs-fac-vmnbkry acetaminophen or ibuprofen for fever, muscle aching, and headache, unless another medicine was prescribed for this. If you have chronic liver or kidney disease or ever had a stomach ulcer or gastrointestinal bleeding, talk with your healthcare provider before using these medicines. No one who is younger than 18 and ill with a fever should take aspirin. It may cause severe disease or . Your appetite may be poor, so a light diet is fine. Avoid dehydration by drinking 8 to 12, 8-ounce glasses of fluids each day. This may include water; orange juice; lemonade; apple, grape, and cranberry juice; clear fruit drinks; electrolyte replacement and sports drinks; and decaffeinated teas and coffee. If you have been diagnosed with a kidney disease, ask your healthcare provider how much and what types of fluids you should drink to prevent dehydration. If you have kidney disease, drinking too much fluid can cause it build up in the your body and be dangerous to your health. Rmsv-rch-qodhxhb remedies won't shorten the length of the illness but may be helpful for symptoms such as cough, sore throat, nasal and sinus congestion, or diarrhea. Don't use decongestants if you have high blood pressure. Follow-up care Follow up with your healthcare provider if you do not improve over the next week. Call 911 Call 911 if any of the following occur: Convulsion Feeling weak, dizzy, or like you are going to faint Chest pain, or more than mild shortness of breath When to seek medical advice Call your healthcare provider right away if any of these occur: Cough with lots of colored sputum (mucus) or blood in your sputum Chest pain, shortness of breath, wheezing, or trouble breathing Severe headache; face, neck, or ear pain Severe, constant pain in the lower right side of your belly (abdominal) Continued vomiting (can t keep liquids down) Frequent diarrhea (more than 5 times a day); blood (red or black color) or mucus in diarrhea Feeling weak, dizzy, or like you are going to faint Extreme thirst Fever of 100.4 F (38 C) or higher, or as directed by your healthcare provider [phone] [employer]. [address] [place] [address], [place] [address]. All rights reserved. This information is not intended as a substitute for professional medical care. Always follow your healthcare professional's instructions. Additional Information VACCINATE! IT SAVES LIVES! Members of the community who have not yet received the COVID-19 vaccine and would like to receive it can visit one of [facility] vaccine clinics. There are many vaccine clinic locations within the [facility]. For locations and available times, please visit [email or web address]. It is important to note that some COVID mobile vaccine clinics are held outdoors and may be canceled in rainy or stormy conditions. To learn more about pediatric vaccinations (ages 5-11), we invite you to visit the [facility] webpage. https://www.Bubble Motions.org/pag es/4726-Fsmhc-Krenaegwzme-Frequent br-Weaxa-Sipjuimsm.html To learn more about the COVID-19 vaccine, we invite you to visit the [facility] website for a list of frequently asked questions. [email or web address]/[email or web address] s-rso-Ckdabugv/dknin-Emzrnzj-Ltnnb ently_Asked-Questions.pdf [facility] Patient Portal Access Instructions: Stay connected with your healthcare team and access your personal medical information anytime with the [facility] Patient Portal. If you would like a full copy of your medical records please contact the [facility] Medical Records Department Wednesday through Wednesday between 8a.m. and 4:30p.m. Please follow the directions below to access the portal: 1.Access the email account you provided upon registration to the [facility].2.Look for an invitation email from [facility].3.Open the email and access the invitation link: Accept Invitation to [facility]4.Fill in the required gonsales to create your account. Sign into [email or web address] with your username and password that you created in the above steps to stay up to date. You can then view a summary of results, a summary of your visits, and the ability to download your summaries to your computer or send the information securely to a physician. Remember that your healthcare information is confidential, so carefully consider who you will allow to register on the [facility] Patient Portal for access to your information. You can also access the [facility] Patient Portal on the [employer]. Simply click on Health Records under Health Data and then click on the [employer] logo. HOW TO SAFELY DISPOSE OF PRESCRIPTION MEDICATIONS Please use one of the following methods to safely dispose of your unused medications. 1.Use a drug disposal kit: the drug disposal pouch allows you to safely discard your old and unused drugs. Ask your nurse to give you one when you are discharged.2.Visit a local take-back location: Many local pharmacies and police departments have programs that collect old and unwanted prescription drugs. Call your local pharmacy or go to http://[employer].QuantuModeling/4G1Tg0y to find one close to you.3.Make use of household items: Use cat litter or old coffee grounds to dispose medications if other options are not available. Mix your drugs with these household products, seal them in an airtight container and throw it into the garbage. Call [facility]: [phone] to be sure your drugs can be disposed of in this way. Some medicines may require a different approach.4.Never flush your medications down the toilet. IF YOU HAVE BEEN PRESCRIBED AN OPIOIDS FOR PAIN If you have been prescribed an opioid (such as hydrocodone, oxycodone or morphine), it is critical to understand the possible side effects and risks of opioid pain medications. Even when taken as directed, opioids can have several side effects including: Tolerance, meaning you might need to take more of a medication for the same pain relief. Nausea, vomiting and/or constipation. Sleepiness, dizziness, dry mouth, confusion, depression or itching. Physical dependence, meaning you have withdrawal symptoms when a medication is stopped ? this can develop within a few days. KNOW YOUR RESPONSIBILITIES It is important to know exactly how much and how often to take the opioid pain medications you are prescribed. Never take opioids in higher amounts or more often than prescribed. Do not combine opioids with alcohol or other drugs that cause drowsiness, such as benzodiazepines, also known as benzos, including diazepam and alprazolam, muscle relaxants or sleep aids. Never sell or share prescription opioids. This is illegal. Store opioids in a secure place and out of reach of others (including children, family, friends and visitors). The last page(s) of this document has been signed and retained as a CHART COPY Signatures Patient Education Materials Viral Syndrome (Adult) Medication Leaflets benzonatate My discharge plan and instructions have been reviewed and explained to me and I,LOGAN NEGRO understand my current condition and have read and understand these discharge instructions. I have received a written copy of the plan/instructions. If I have questions, I am aware that I should contact my doctor. 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 Pain often comes from the structures that surround the shoulder joint. These are the joint capsule, ligaments, tendons, muscles, and bursa. Pain can also come from cartilage in the joint. Cartilage can become worn out or injured. It s important to know what s causing your pain so the healthcare provider can use the correct treatment. But sometimes it s difficult to find the exact cause of shoulder pain. You may need to see a specialist (orthopedist). You may also need special tests such as a CT scan or MRI. The provider may need to use special tools to look inside the joint (arthroscopy). Shoulder pain can be treated with a sling or a device that keeps your shoulder from moving. You can take an anti-inflammatory medicine such as ibuprofen to ease pain. You may need to do special shoulder exercises. Follow up with a specialist if the pain is severe or doesn t go away after a few weeks. Home care Follow these tips when caring for yourself at home: If a sling was given to you, leave it in place for the time advised by your healthcare provider. If you aren t sure how long to wear it, ask for advice. If the sling becomes loose, adjust it so that your forearm is level with the ground. Your shoulder should feel well supported. Put an ice pack on the injured area for 20 minutes every 1 to 2 hours the first day. You can make your own ice pack by putting ice cubes in a plastic bag. Wrap the bag in a thin towel. Continue with ice packs 3 to 4 times a day for the next 2 days. Then use the pack as needed to ease pain and swelling. You may use acetaminophen or ibuprofen to control pain, unless another pain medicine was prescribed. If you have chronic liver or kidney disease, talk with your healthcare provider before using these medicines. Also talk with your provider if you ve ever had a stomach ulcer or GI bleeding. Shoulder pain may seem worse at night, when there is less to distract you from the pain. If you sleep on your side, try to keep weight off your painful shoulder. Propping pillows behind you may stop you from rolling over onto that shoulder during sleep. Shoulder and elbow joints can become stiff if left in a sling for too long. You should start range of motion exercises about 7 to 10 days after the injury. Talk with your provider to find out what type of exercises to do and how soon to start. You can take the sling off to shower or bathe. Follow-up care Follow up with your healthcare provider if you don t start to get better in the next 5 days. When to seek medical advice Call your healthcare provider right away if any of these occur: Pain or swelling gets worse or continues for more than a few days Your hand or fingers become cold, blue, numb, or tingly Large amount of bruising on your shoulder or upper arm Difficulty moving your hand or fingers Weakness in your hand or fingers Your shoulder becomes stiff It feels like your shoulder is popping out You are less able to do your daily activities [id number] [employer]. [address] [place] [address], [place] [address]. All rights reserved. This information is not intended as a substitute for professional medical care. Always follow your healthcare professional's instructions. Follow Up Care 08/12/2022 06:11:58 With:CORRINA ADAME Address: [address] [place] [phone] Business (1) When:2-4 days Comments:Use Tylenol, ibuprofen, lidocaine patches for pain. You may try heating pad as well. Follow closely with your doctor, return if any worsening or concerning symptoms. [facility] 08-12-2022 Note Discharge Instructions Thank you for allowing [facility] to assist you with your healthcare needs. The following is important discharge information regarding your hospital visit. Diagnosis from Today's Visit Shoulder injury - Minor Shoulder pain What to Do Next Instructions from Your Care Team No qualifying data available. Post Acute Orders No qualifying data available. You Need to Schedule the Following Appointments Follow Up with CORRINA ADAME When Within 2-4 days Why: Use Tylenol, ibuprofen, lidocaine patches for pain. You may try heating pad as well. Follow closely with your doctor, return if any worsening or concerning symptoms. Where: [address] [place] [phone] Business (1) Allergies NKA Medications Please ask your primary doctor or pharmacist before taking any other medication not listed, including over the counter drugs, herbal medications, vitamins and or supplements as they may interact with your home medications. What How Much When Why Instructions Last Dose New lidocaine topical (lidocaine 5% topical patch) 1 patch(es) Topical Every day Duration: 10 Days Printed Prescription Unchanged amitriptyline (amitriptyline 25 mg oral tablet) 1 tab(s) by mouth Daily at bedtime Depression Anxiety Duration: 90 Days Unchanged ibuprofen (ibuprofen 200 mg oral tablet) TAKE 3 TABLETS BY MOUTH EVERY 6 HOURS FOR 7 DAYS NEEDED FOR PAIN Unchanged predniSONE (prednisone 10mg tab (TAPER)) Taper 40-30-20-10 x 3 days each dose by mouth Once a day Polyarthralgia Duration: 12 Days Take with food/ meal Unchanged SUMAtriptan (SUMAtriptan 50 mg oral tablet) 1 tab(s) by mouth Once a day as needed for as needed for migraine headache 1 tab onset , may repeat in 2 hrs. MAX 4 tab(s)/ 24hrs Please take this list to your next doctor s visit. Bring all medications you take, including over the counter medications, herbals and other supplements with you to your doctor s visit. Patients and families are reminded to discard old lists and to update any records with all medication providers or retail pharmacies. Education Materials Shoulder Pain with Uncertain Cause Shoulder pain can have many causes. Pain often comes from the structures that surround the shoulder joint. These are the joint capsule, ligaments, tendons, muscles, and bursa. Pain can also come from cartilage in the joint. Cartilage can become worn out or injured. It s important to know what s causing your pain so the healthcare provider can use the correct treatment. But sometimes it s difficult to find the exact cause of shoulder pain. You may need to see a specialist (orthopedist). You may also need special tests such as a CT scan or MRI. The provider may need to use special tools to look inside the joint (arthroscopy). Shoulder pain can be treated with a sling or a device that keeps your shoulder from moving. You can take an anti-inflammatory medicine such as ibuprofen to ease pain. You may need to do special shoulder exercises. Follow up with a specialist if the pain is severe or doesn t go away after a few weeks. Home care Follow these tips when caring for yourself at home: If a sling was given to you, leave it in place for the time advised by your healthcare provider. If you aren t sure how long to wear it, ask for advice. If the sling becomes loose, adjust it so that your forearm is level with the ground. Your shoulder should feel well supported. Put an ice pack on the injured area for 20 minutes every 1 to 2 hours the first day. You can make your own ice pack by putting ice cubes in a plastic bag. Wrap the bag in a thin towel. Continue with ice packs 3 to 4 times a day for the next 2 days. Then use the pack as needed to ease pain and swelling. You may use acetaminophen or ibuprofen to control pain, unless another pain medicine was prescribed. If you have chronic liver or kidney disease, talk with your healthcare provider before using these medicines. Also talk with your provider if you ve ever had a stomach ulcer or GI bleeding. Shoulder pain may seem worse at night, when there is less to distract you from the pain. If you sleep on your side, try to keep weight off your painful shoulder. Propping pillows behind you may stop you from rolling over onto that shoulder during sleep. Shoulder and elbow joints can become stiff if left in a sling for too long. You should start range of motion exercises about 7 to 10 days after the injury. Talk with your provider to find out what type of exercises to do and how soon to start. You can take the sling off to shower or bathe. Follow-up care Follow up with your healthcare provider if you don t start to get better in the next 5 days. When to seek medical advice Call your healthcare provider right away if any of these occur: Pain or swelling gets worse or continues for more than a few days Your hand or fingers become cold, blue, numb, or tingly Large amount of bruising on your shoulder or upper arm Difficulty moving your hand or fingers Weakness in your hand or fingers Your shoulder becomes stiff It feels like your shoulder is popping out You are less able to do your daily activities [id number] [employer]. [address] [place] [address]. All rights reserved. This information is not intended as a substitute for professional medical care. Always follow your healthcare professional's instructions. Additional Information VACCINATE! IT SAVES LIVES! Members of the community who have not yet received the COVID-19 vaccine and would like to receive it can visit one of [facility] vaccine clinics. There are many vaccine clinic locations within the [facility]. For locations and available times, please visit [email or web address] g. It is important to note that some COVID mobile vaccine clinics are held outdoors and may be canceled in rainy or stormy conditions. To learn more about pediatric vaccinations (ages 5-11), we invite you to visit the [facility] webpage. https://[email or web address]/pag es/2162-Qwcyn-Orrthkfrdcx-Frequent sp-Dqhjl-Algwpwpuo.html To learn more about the COVID-19 vaccine, we invite you to visit the [employer] website for a list of frequently asked questions. [email or web address] p-jqi-[email or web address]/[email or web address]-[email or web address]-Zpjqh ently_[email or web address]-Questions.pdf [facility] Patient Portal Access Instructions: Stay connected with your healthcare team and access your personal medical information anytime with the [facility] Patient Portal. If you would like a full copy of your medical records please contact the [facility] Medical Records Department Wednesday through Wednesday between 8a.m. and 4:30p.m. Please follow the directions below to access the portal: 1.Access the email account you provided upon registration to the [facility].2.Look for an invitation email from [facility].3.Open the email and access the invitation link: Accept Invitation to [facility]4.Fill in the required gonsales to create your account. Sign into [email or web address] with your username and password that you created in the above steps to stay up to date. You can then view a summary of results, a summary of your visits, and the ability to download your summaries to your computer or send the information securely to a physician. Remember that your healthcare information is confidential, so carefully consider who you will allow to register on the [facility] Patient Portal for access to your information. You can also access the [facility] Patient Portal on the [employer]. Simply click on Health Records under Health Data and then click on the [facility] logo. HOW TO SAFELY DISPOSE OF PRESCRIPTION MEDICATIONS Please use one of the following methods to safely dispose of your unused medications. 1.Use a drug disposal kit: the drug disposal pouch allows you to safely discard your old and unused drugs. Ask your nurse to give you one when you are discharged.2.Visit a local take-back location: Many local pharmacies and police departments have programs that collect old and unwanted prescription drugs. Call your local pharmacy or go to http://[employer].QuantuModeling/1K1Ea0j to find one close to you.3.Make use of household items: Use cat litter or old coffee grounds to dispose medications if other options are not available. Mix your drugs with these household products, seal them in an airtight container and throw it into the garbage. Call [facility]: [phone] to be sure your drugs can be disposed of in this way. Some medicines may require a different approach.4.Never flush your medications down the toilet. IF YOU HAVE BEEN PRESCRIBED AN OPIOIDS FOR PAIN If you have been prescribed an opioid (such as hydrocodone, oxycodone or morphine), it is critical to understand the possible side effects and risks of opioid pain medications. Even when taken as directed, opioids can have several side effects including: Tolerance, meaning you might need to take more of a medication for the same pain relief. Nausea, vomiting and/or constipation. Sleepiness, dizziness, dry mouth, confusion, depression or itching. Physical dependence, meaning you have withdrawal symptoms when a medication is stopped ? this can develop within a few days. KNOW YOUR RESPONSIBILITIES It is important to know exactly how much and how often to take the opioid pain medications you are prescribed. Never take opioids in higher amounts or more often than prescribed. Do not combine opioids with alcohol or other drugs that cause drowsiness, such as benzodiazepines, also known as benzos, including diazepam and alprazolam, muscle relaxants or sleep aids. Never sell or share prescription opioids. This is illegal. Store opioids in a secure place and out of reach of others (including children, family, friends and visitors). The last page(s) of this document has been signed and retained as a CHART COPY Signatures Patient Education Materials Shoulder Pain, Uncertain Cause Medication Leaflets My discharge plan and instructions have been reviewed and explained to me and ISRUTHI SETH J understand my current condition and have read and understand these discharge instructions. I have received a written copy of the plan/instructions. If I have questions, I am aware that I should contact my doctor. 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: Relationship to Patient: ___ Witness Name/Signature: Date/Time: [facility] 07-03-2022 Evaluation + Plan note Diagnostic Tests PendingAntinuclear Antibody Screen, Serum 07/03/22 Future Scheduled TestsUS Soft Tissue Mass Chest Wall/Upper Back 09/23/21XR Chest 2 Views (PA & Lateral) 09/08/21 [facility] 07-03-2022 Note ORIGINAL EXAMINATION: 3 XRAY VIEWS OF THE LUMBAR SPINE07/03/2022 12:38 pm LUMBAR SPINE 2 or 3 VIEWS COMPARISON: None HISTORY: ORDERING SYSTEM PROVIDED HISTORY: Reason for Exam: back pain, polyarthraligia FINDINGS: Mild levoconvex curvature seen. Lumbar vertebral body heights are normal. Disc heights are preserved. No significant facet arthropathy. No spondylolisthesis. IMPRESSION: No compression deformity or significant listhesis. Interpreted by: Shaheen Townsend MD Preliminary Report By: Shaheen Townsend MD Electronically signed By Shaheen Townsend MD Dictated Date: 07/03/2022 12:52:17 PM Prelim Date: 07/03/2022 12:53:10 PM Sign Date: 07/03/2022 12:53:10 PM Ordering Provider: CORRINA [facility] 07-03-2022 Note ORIGINAL EXAMINATION: 3 XRAY VIEWS OF THE LUMBAR SPINE07/03/2022 12:38 pm LUMBAR SPINE 2 or 3 VIEWS COMPARISON: None HISTORY: ORDERING SYSTEM PROVIDED HISTORY: Reason for Exam: back pain, polyarthraligia FINDINGS: Mild levoconvex curvature seen. Lumbar vertebral body heights are normal. Disc heights are preserved. No significant facet arthropathy. No spondylolisthesis. IMPRESSION: No compression deformity or significant listhesis. Interpreted by: Shaheen Townsend MD Preliminary Report By: Shaheen Townsend MD Electronically signed By Shaheen Townsend MD Dictated Date: 07/03/2022 12:52:17 PM Prelim Date: 07/03/2022 12:53:10 PM Sign Date: 07/03/2022 12:53:10 PM Ordering Provider: CORRINA [facility] 05-06-2022 Hospital Discharge instructions Patient Education 05/06/2022 12:00:12 Reducing Risk of Musculoskeletal Disorders (MSDs): Posture Reducing Risk of Musculoskeletal Disorders (MSDs): Posture Standing, sitting, and moving incorrectly all increase your risk of musculoskeletal disorders (MSDs). Why? Because posture problems overwork your body. They strain your muscles and tendons and stress your joints. With a little adjustment, however, you can correct most posture problems. Whatever you do, try to stay in a near neutral position and to work within easy reach. Tasks take less force when you work from a stable base. Take your knowledge of ergonomic principles home with you. Stay near neutral Whether you're standing or sitting, neutral posture places the least amount of stress on your body. To find neutral, line up your ears, shoulders, and hips. Keep your head upright and relax while you do this. If you're holding your breath or your shoulders are creeping toward your ears, try again. Your shoulders should be level, with your arms relaxed at your sides. You can rest your body by returning to neutral as often as possible. Other helpful positions include: Keep your hands, wrists, and forearms straight and parallel to the floor. Keep your head level, facing forward, and in line with your torso. Your feet should be supported by the floor, and your thighs and hips supported by a padded seat. If you are sitting, it is important to have your lower back supported. Work within reach Keep your work within 14 to 18 inches of your body, depending on your size. Reaching too far can be awkward. It also reduces your muscle power, so you need to use more force. Never lock a joint by extending it until it can't go any farther. Also, avoid reaching overhead or behind your back, if you can. If you can't, return to neutral as soon as possible. Support your body off the job Have you thought about your posture while you clean house or watch TV? Anytime you're not using a neutral posture, you might be straining muscles or joints. Just sitting on a sagging sofa every evening may be enough to strain your back. Remember these tips: When relaxing, support your body so you're comfortable and not twisted. On a couch or chair, put a rolled-up pillow behind your back to support it. No matter what you're doing (cooking, cleaning, carpentry), work within reach. An old, sagging, lumpy mattress can be doing your body harm. A comfortable mattress that's firm but has enough cushion to support your body's natural curves provides better rest and opportunity for your body to recover the demands of the day. 2372-4172 [employer]. [address] [place] [address]. All rights reserved. This information is not intended as a substitute for professional medical care. Always follow your healthcare professional's instructions. Follow Up Care 05/06/2022 11:04:20 With:FRANCISCA LUCERO Address: [address] [place] [phone] When:2-4 days With:FRANCISCA LUCERO Address: [address] [place] [phone] When:2-4 days [facility] 05-06-2022 Emergency department Discharge summary Discharge Instructions Thank you for allowing [facility] to assist you with your healthcare needs. The following is important discharge information regarding your hospital visit. Diagnosis from Today's Visit Flank pain What to Do Next Instructions from Your Care Team No qualifying data available. Post Acute Orders No qualifying data available. You Need to Schedule the Following Appointments Follow Up with FRANCISCA LUCERO When Within 2-4 days Where: [address] [place] [phone] Follow Up with FRANCISCA LUCERO When Within 2-4 days Where: [address] [place] [phone] Allergies NKA Medications Please ask your primary doctor or pharmacist before taking any other medication not listed, including over the counter drugs, herbal medications, vitamins and or supplements as they may interact with your home medications. What How Much When Instructions Last Dose New cyclobenzaprine (cyclobenzaprine 5 mg oral tablet) 1 tab(s) by mouth Three (3) times a day Duration: 7 Days Printed Prescription New ibuprofen (Motrin Migraine Pain 200 mg oral tablet) 3 tab(s) by mouth Every 6 hours as needed for for pain Duration: 7 Days Printed Prescription Please take this list to your next doctor s visit. Bring all medications you take, including over the counter medications, herbals and other supplements with you to your doctor s visit. Patients and families are reminded to discard old lists and to update any records with all medication providers or retail pharmacies. Education Materials Reducing Risk of Musculoskeletal Disorders (MSDs): Posture Standing, sitting, and moving incorrectly all increase your risk of musculoskeletal disorders (MSDs). Why? Because posture problems overwork your body. They strain your muscles and tendons and stress your joints. With a little adjustment, however, you can correct most posture problems. Whatever you do, try to stay in a near neutral position and to work within easy reach. Tasks take less force when you work from a stable base. Take your knowledge of ergonomic principles home with you. Stay near neutral Whether you're standing or sitting, neutral posture places the least amount of stress on your body. To find neutral, line up your ears, shoulders, and hips. Keep your head upright and relax while you do this. If you're holding your breath or your shoulders are creeping toward your ears, try again. Your shoulders should be level, with your arms relaxed at your sides. You can rest your body by returning to neutral as often as possible. Other helpful positions include: Keep your hands, wrists, and forearms straight and parallel to the floor. Keep your head level, facing forward, and in line with your torso. Your feet should be supported by the floor, and your thighs and hips supported by a padded seat. If you are sitting, it is important to have your lower back supported. Work within reach Keep your work within 14 to 18 inches of your body, depending on your size. Reaching too far can be awkward. It also reduces your muscle power, so you need to use more force. Never lock a joint by extending it until it can't go any farther. Also, avoid reaching overhead or behind your back, if you can. If you can't, return to neutral as soon as possible. Support your body off the job Have you thought about your posture while you clean house or watch TV? Anytime you're not using a neutral posture, you might be straining muscles or joints. Just sitting on a sagging sofa every evening may be enough to strain your back. Remember these tips: When relaxing, support your body so you're comfortable and not twisted. On a couch or chair, put a rolled-up pillow behind your back to support it. No matter what you're doing (cooking, cleaning, carpentry), work within reach. An old, sagging, lumpy mattress can be doing your body harm. A comfortable mattress that's firm but has enough cushion to support your body's natural curves provides better rest and opportunity for your body to recover the demands of the day. 9775-4263 [employer]. [address] [place] [address]. All rights reserved. This information is not intended as a substitute for professional medical care. Always follow your healthcare professional's instructions. Additional Information VACCINATE! IT SAVES LIVES! Members of the community who have not yet received the COVID-19 vaccine and would like to receive it can visit one of [facility] vaccine clinics. There are many vaccine clinic locations within the [facility]. For locations and available times, please visit [email or web address]. It is important to note that some COVID mobile vaccine clinics are held outdoors and may be canceled in rainy or stormy conditions. To learn more about pediatric vaccinations (ages 5-11), we invite you to visit the [facility] webpage. [email or web address] [email or web address] To learn more about the COVID-19 vaccine, we invite you to visit the [facility] website for a list of frequently asked questions. [email or web address]-[email or web address] ently_[email or web address].pdf [facility] Patient Portal Access Instructions: Stay connected with your healthcare team and access your personal medical information anytime with the [facility] Patient Portal. If you would like a full copy of your medical records please contact the [facility] Medical Records Department Wednesday through Wednesday between 8a.m. and 4:30p.m. Please follow the directions below to access the portal: 1.Access the email account you provided upon registration to the hospital.2.Look for an invitation email from [facility].3.Open the email and access the invitation link: Accept Invitation to [facility]4.Fill in the required gonsales to create your account. Sign into [email or web address] with your username and password that you created in the above steps to stay up to date. You can then view a summary of results, a summary of your visits, and the ability to download your summaries to your computer or send the information securely to a physician. Remember that your healthcare information is confidential, so carefully consider who you will allow to register on the [facility] Patient Portal for access to your information. You can also access the [facility] Patient Portal on the [employer] colten. Simply click on Health Records under Health Data and then click on the [employer] logo. HOW TO SAFELY DISPOSE OF PRESCRIPTION MEDICATIONS Please use one of the following methods to safely dispose of your unused medications. 1.Use a drug disposal kit: the drug disposal pouch allows you to safely discard your old and unused drugs. Ask your nurse to give you one when you are discharged.2.Visit a local take-back location: Many local pharmacies and police departments have programs that collect old and unwanted prescription drugs. Call your local pharmacy or go to http://[employer].QuantuModeling/5S2Rd6e to find one close to you.3.Make use of household items: Use cat litter or old coffee grounds to dispose medications if other options are not available. Mix your drugs with these household products, seal them in an airtight container and throw it into the garbage. Call [facility]: [phone] to be sure your drugs can be disposed of in this way. Some medicines may require a different approach.4.Never flush your medications down the toilet. IF YOU HAVE BEEN PRESCRIBED AN OPIOIDS FOR PAIN If you have been prescribed an opioid (such as hydrocodone, oxycodone or morphine), it is critical to understand the possible side effects and risks of opioid pain medications. Even when taken as directed, opioids can have several side effects including: Tolerance, meaning you might need to take more of a medication for the same pain relief. Nausea, vomiting and/or constipation. Sleepiness, dizziness, dry mouth, confusion, depression or itching. Physical dependence, meaning you have withdrawal symptoms when a medication is stopped ? this can develop within a few days. KNOW YOUR RESPONSIBILITIES It is important to know exactly how much and how often to take the opioid pain medications you are prescribed. Never take opioids in higher amounts or more often than prescribed. Do not combine opioids with alcohol or other drugs that cause drowsiness, such as benzodiazepines, also known as benzos, including diazepam and alprazolam, muscle relaxants or sleep aids. Never sell or share prescription opioids. This is illegal. Store opioids in a secure place and out of reach of others (including children, family, friends and visitors). The last page(s) of this document has been signed and retained as a CHART COPY Signatures Patient Education Materials Reducing Risk of Musculoskeletal Disorders (MSDs): Posture Medication Leaflets My discharge plan and instructions have been reviewed and explained to me and ISRUTHI SETH J understand my current condition and have read and understand these discharge instructions. I have received a written copy of the plan/instructions. If I have questions, I am aware that I should contact my doctor. 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: Relationship to Patient: ___ Witness Name/Signature: Date/Time: [facility] 09-23-2021 Evaluation + Plan note Future Scheduled TestsUS Soft Tissue Mass Chest Wall/Upper Back 09/23/21XR Chest 2 Views (PA & Lateral) 09/08/21 [facility] 09-23-2021 Evaluation + Plan note Future Scheduled TestsUS Soft Tissue Mass Chest Wall/Upper Back 09/23/21 [facility] 10-18-2020 Evaluation + Plan note Future Scheduled Tests.Coronavirus 2019 10/18/20CT Head or Brain w/ + w/o Contrast 02/19/21XR Chest 2 Views (PA & Lateral) 09/08/21US Soft Tissue Mass Chest Wall/Upper Back 09/08/21 [facility] Evaluation + Plan note Future Appointments Appointment Date:08/17/2022 09:30:00 AM Scheduled Provider:CORRINA ADAME Location:[facility] Appointment Type:PC OV ED Follow Up Future Scheduled TestsUS Soft Tissue Mass Chest Wall/Upper Back 09/23/21XR Chest 2 Views (PA & Lateral) 09/08/21 [facility] Evaluation + Plan note Future Appointments Appointment Date:03/27/2024 11:00:00 AM Scheduled Provider: Location:[facility] Appointment Type:NM Hepatobiliary Duct System Imaging Future Scheduled TestsThyroid Stimulating Hormone 07/21/23Free T4 07/21/23A1C Hemoglobin 07/21/23Complete Blood Count 07/21/23Complete Metabolic Panel 07/21/23CT Thorax w/o Contrast 08/13/23NM Hepatobiliary Duct System Imaging 03/27/24 [facility] Hospital course Narrative No data available for this section [facility] Hospital Discharge instructions No data available for this section [facility] Progress note No data available for this section [facility] Summary Purpose Family History No Family History Records Found Advance Directives No Advanced Directives Records FoundNo Advanced Directives Records Found Additional Source Comments Care Team (unrecognized sect ion and content) Care Team Personnel Name: FRANCISCA LUCERO Position: P4 Advanced Practice Nurse Med Service: Active Provider Member Role: Primary Care Physician Address: Address: [address] [place] [id number] [place] [address] Care Team Related Persons Name: HAYLEY HERNANDEZ Care Team Personnel Name: FRANCISCA LUCERO Position: P4 Advanced Practice Nurse Member Role: Primary Care Physician Address: Address: [address] [place] [id number] [place] [address] Care Team Related Persons Name: HAYLEY HERNANDEZ Care Team Personnel Name: DEEP, CORRINA A HEALTH AND SAFETY DIRECTOR-FIELD SERVICE COORDINATOR Position: P4 Advanced Practice Nurse Member Role: Primary Care Physician Address: Address: [address] [place] [address] [place] Care Team Related Persons Name: HAYLEY HERNANDEZ Care Team Personnel Name: CORRINA ADAME APRN-FIELD SERVICE COORDINATOR Position: P4 Advanced Practice Nurse Member Role: Primary Care Physician Address: Address: [address] [place] [address]- [place] Name: GURINDER SANTIAGO MD Position: ED Physician Member Role: ED Physician Address: Address: [address] [facility] [place] [address]- [place] Care Team Related Persons Name: HAYLEY HERNANDEZ Care Team Personnel Name: CORRINA ADAME APRN-FIELD SERVICE COORDINATOR Position: P4 Advanced Practice Nurse Member Role: Primary Care Physician Address: Address: [address] [place] [address]- [place] Name: JOHN SANTA DO Position: Resident Member Role: Resident Address: Address: [address] [facility] [place] [address]- [place] Name: MARTIO Andrea Position: RN Member Role: ED RN Name: SHAHEEN JORGE DO Position: ED Physician Member Role: ED Physician Address: Address: [facility] [address] [place] [address]- [place] Care Team Related Persons Name: HAYLEY HERNANDEZ Patient Care team informatio n (unrecognized section and content) Care Team Personnel Name: CORRINA ADAME APRN-FIELD SERVICE COORDINATOR Position: P4 Advanced Anesthesia Resident Member Role: Primary Care Physician Address: Address: [address] [place] [address]- [place] Care Team Related Persons Name: HAYLEY HERNANDEZ Care Team Personnel Name: CORRINA ADAME APRN-FIELD SERVICE COORDINATOR Position: P4 Advanced Anesthesia Resident Member Role: Primary Care Physician Address: Address: [address] [place] [address]- [place] Name: ITA HENDRICKS MD Position: ED Physician Member Role: Attending Physician Address: Address: [address] [facility] [place] [address]- [place] Name: MARITO Obando Position: AO RN Member Role: RN Care Team Related Persons Name: HAYLEY HERNANDEZ Care Team Personnel Name: CORRINA ADAME HEALTH AND SAFETY DIRECTOR-FIELD SERVICE COORDINATOR Position: P4 Advanced Anesthesia Resident Member Role: Primary Care Physician Address: Address: [address] [place] [address]- Care Team Related Persons Name: HAYLEY HERNANDEZ Care Team Personnel Name: CORRINA ADAME HEALTH AND SAFETY DIRECTOR-FIELD SERVICE COORDINATOR Position: P4 Advanced Anesthesia Resident Member Role: Primary Care Physician Address: Address: [address] [place] [address]- [place] Care Team Related Persons Name: HAYLEY HERNANDEZ Care Team Personnel Name: CORRINA ADAME HEALTH AND SAFETY DIRECTOR-FIELD SERVICE COORDINATOR Position: P4 Advanced Anesthesia Resident Member Role: Primary Care Physician Address: Address: [address] [place] [address]- [place] Care Team Related Persons Name: HAYLEY HERNANDEZ Care Team Personnel Name: CORRINA ADAME HEALTH AND SAFETY DIRECTOR-FIELD SERVICE COORDINATOR Position: P4 Advanced Anesthesia Resident Member Role: Primary Care Physician Address: Address: [address] [place] [address]- [place] Care Team Related Persons Name: HAYLEY HERNANDEZ (unrecognized sect ion and content) No Status Records FoundNo Status Records Found INFORMATION SOURCE (unrecogn ized section and content) DATE CREATED AUTHOR 03/30/2024 [facility] ([place]) DATE CREATED AUTHOR AUTHOR'S ORGANIZ ATION 04/22/2024 [facility] FOR RECORDS PERTAINING TO PATIENTS WHO ARE OR HAVE BEEN ENROLLED IN A CHEMICAL DEPENDENCY/SUBSTANCEABUSE PROGRAM, SOME INFORMATION MAY BE OMITTED. This clinical summary was aggregated from multiple sources. Caution should be exercised in using it in the provision of clinical care. This summary normalizes information from multiple sources, and as a consequence, information in this document may materially change the coding, format and clinical context of patient data. In addition, data may be omitted in some cases. CLINICAL DECISIONS SHOULD BE BASED ON THE PRIMARY CLINICAL RECORDS. [facility]. provides no warranty or guarantee of the accuracy or completeness of information in this document.
--- NOTE | 2024-06-07 12:29 | HP.PCM_ITS ---
History and Physical Date of Admission: 06/07/24 Intake Vital Signs 05/15/2413:11 05/31/2408:56 Height 5 ft 10 in 5 ft 10 in Weight: 225 lb 227 lb 4 oz BMI 32.3 32.5 BP 129/83 H 125/85 H Blood Pressure Location Rt brachial Rt brachial Position Sitting Sitting Respiration 18 Pulse 92 75 Pulse Source Monitor Temp 97.6 F L Temp Source Temporal Pulse Oximetry (%) 95 98 Oxygen Delivery Method room air room air Intake Visit Reasons: GALLBLADDER CONSULT Chief Complaint: gallbladder consult Is patient in pain?: No Allergies No Known Allergies Allergy (Verified 05/31/24 08:57) Medications ?Medication ?Instructions ?Recorded ?Confirmed ?Type albuterol sulfate 90 mcg/actuation 2 puff inhalation Q4H PRN cough 05/11/24 05/31/24 History aerosol inhaler wheezing amitriptyline 25 mg tablet 25 mg PO QHS 05/11/24 05/31/24 History duloxetine 30 mg capsule,delayed 30 mg PO QDAY 05/11/24 05/31/24 History release fluticasone propionate 44 2 puff inhalation BID 05/11/24 05/31/24 History mcg/actuation HFA aerosol inhaler cyclobenzaprine 10 mg tablet 10 mg PO DAILY PRN muscle spasm 05/15/24 05/31/24 History pantoprazole 40 mg tablet,delayed 40 mg PO QAM acid reflux #30 tabs 05/15/24 05/31/24 Rx release PFSH Medical History (Updated 05/31/24 @ 08:56 by Ila Sewell LPN) Gallbladder problem Abdominal pain Left knee pain Elevated blood pressure reading Elevated liver enzymes Abnormal biliary HIDA scan Family History Father Heart disease Hypertension Hypercholesteremia Social History (Updated 05/31/24 @ 08:56 by Ila Sewell LPN) Smoking Status: Former smoker alcohol intake: never substance use type: does not use HPI HPI HPI: Patient is a 24-year-old male here for gallbladder issues. The patient has been having right upper quadrant pain radiating to the back especially after meals. He had a ultrasound which showed sludge and a HIDA that showed only an 8% ejection fraction. He reports that the pain happens slightly after eating. ROS General General: Yes weight change; No appetite, fatigue, colon cancer, breast cancer or weakness HEENT HEENT: No difficulty swallowing, eye injury, eye surgery, swollen glands or hoarseness Endo Endocrine: No thyroid disease, diabetes mellitus, thyroid cancer, Hair loss, heat intolerance or cold intolerance Skin Skin: No rash or changing moles Musc Musculoskeletal: Yes arthritis; No back problems, rheumatoid arthritis, gout or joint pain Cardio Cardiovascular: No murmur, pacemaker, heart disease, atrial fibrillation, high blood pressure, heart attack, heart stent, palpitations, shortness of breat with exertion or chest pain Psych Psychiatric: Yes depression and anxiety; No hearing voices Resp Respiratory: Yes shortness of breath, No sleep apnea, No cough, No COPD, Yes asthma, No emphysema and No wheezing Gastro Gastrointestinal: Yes abdominal pain, No nausea or vomiting, No diarrhea, No constipation, No blood in stool, Yes acid reflux, No hemorrhoids, No ulcers, Yes gallbladder problem and No black,tarry stools Stephon Hematologic: No blood thinners, No blood disorders, No bleeding, No anemia and No blood clots Neuro Neurologic: No numbness, No tingling and No weakness Exam Const General: cooperative Orientation: alert and oriented x3 HENMT Head: normal to inspection Neck Neck: normal visual inspection and full ROM Chest Chest palpation & inspection: normal inspection of the chest Resp Effort & Inspection: normal respiratory effort Auscultation: clear to auscultation bilaterally Cardio Rate: regular rate Rhythm: regular rhythm GI Inspection: non-distended Palpation: soft and nontender Skin General: no rashes or lesions noted Neuro General: patient alert and patient oriented x3 Extrem General: full ROM Psych Appearance: grossly normal Mental Status: mental status grossly normal Assessment and Plan Assessment and Plan (1) Non-functioning gallbladder: Status: Acute Plan: The patient has biliary dyskinesia as well as sludge in the gallbladder. I discussed laparoscopic cholecystectomy with him in detail. I discussed the procedure as well as the risks. I discussed the procedure in detail with the patient. I discussed the risks, benefits, and alternatives of the procedure. I discussed the risks including but not limited to bleeding, infection, injury to surrounding organs such as the liver, bile duct, bowels. I did discuss the possibility of having to convert to an open procedure as well as the possibility that if any injuries occurred this may necessitate further surgery at a tertiary care center. Jay Naik MD Pager: [facility] [address] [place] [address], [address] [place] [address] Office: I have examined the patient and the H&P has been reviewed. There are no clinical changes since date of exam.
--- NOTE | 2024-06-07 12:30 | GALL_PTH ---
PATHOLOGY RESULTS PATIENT: LOGAN NEGRO LOC: [facility] [place] U#:[id number] AGE/SX: 24/M ROOM: RE06/07/[address]: Dr. Jay Naik MD : 2000 BED: DIS: 06/07/2024 SPEC #: [id number] RECD: 06/07/24 14:53 STATUS: CHRISTIAN RENithin #: [id number] DEEPA: 06/07/24 12:[address]: Jay Naik DEPT: SURGICAL PATHOLOGY RECD BY: Mario Alberto Proctor ENTERED: 06/08/24 07:36 SP TYPE: CHRIS RUTHERFORD DR: Antonietta Palacios, CLINICAL MICROBIOLOGIST-C Tissues: Gallbladder, NOS Procedures: Surgery Specimen Level III HEADER OPERATION: Laparoscopic, cholecystectomy with IOC PRE-OP DIAGNOSIS: Non-functioning gallbladder, biliary dyskinesia TISSUE SUBMITTED: Gallbladder MICROSCOPIC DIAGNOSIS Gallbladder, cholecystectomy: Chronic cholecystitis and focal cholesterolosis. See comment. SJ.mr 06/09/2024 COMMENT No stones are identified in the container or in the gallbladder. MICROSCOPIC DESCRIPTION Slides are reviewed. GROSS DESCRIPTION Received is one container labeled with the patient's name and designated gallbladder. The specimen consists of a gallbladder measuring 6.5 cm in length and up to 4.0 cm in diameter. The external surface is pink-clemens, smooth and glistening for the most part. Focally it is granular, hemorrhagic and contains cautery artifact. The gallbladder contains green-yellow mucoid bile. No stones are identified in the gallbladder or in the container. The mucosa is bile-stained and without any mass lesions. The gallbladder wall measures up to 0.2 cm in thickness. Banquet Captain sections from the gallbladder and the cystic duct are submitted in one cassette. / SJ: 06/08/2024 TC:3 CPT: 58891
--- NOTE | 2024-06-07 13:00 | RAD_ITS ---
EXAM: FL CHOLANGIOGRAPHY AND/OR PANCREATOGRAPHY CLINICAL INDICATION: PAIN TECHNIQUE: Fluoroscopic cholangiogram and/or pancreatography of the right upper quadrant. Fluoroscopic guidance was provided by a physician. 16 seconds fluoroscopic time. 9.54 mGy total dose. COMPARISON: No relevant prior studies available. FINDINGS AND RAD/Cholangiogram/ O R,Initial IMPRESSION: Intraoperative cholangiogram. Refer to the operative note for complete details. Electronically Signed: Hugo Kennedy DO at 23:05 EDT ,
[2024-06-07] MEDS: Bupivacaine 0.25% 30 ML Vial (13:28)
--- NOTE | 2024-06-07 13:37 | EX.PCM.DISCH ---
Discharge Instructions Procedure Gallbladder Diet Discharge Diet: Light diet - advance as tolerated Activity Discharge Activity: May Not Drive (for 2-3 days or while taking narcotic pain medications.) and - (Do not drive, work heavy equipment or sign legal documents for 24 hours.) May shower in (days): 1 Lifting Restrictions: 20 lbs for 2 weeks Additional Activity Instructions:: Pain medication may cause nausea. You should typically eat light foods as you take your pain medications. Pain medication may also cause constipation. If this is a problem for you, please discuss with your doctor. Alternate Tylenol and ibuprofen for pain control, oxycodone for breakthrough pain Dressing / Incision Call your doctor if your incision/area has: Continuous Slow Oozing, Sudden Increased Bleeding, Increased Pain/ Swelling, Increased Redness and Foul Smelling Discharge Call your doctor if you observe: Fever of 101 or Higher Suture Line Care: Avoid Pulling/Pushing and Avoid Pinching/Bending Remove Dressing in: 2 days Additional Dressing/Incision Instructions:: Leave operative bandaids on for 2 days. When you remove dressing, leave Steri-Strips on until your follow-up appointment, or until the Steri-Strips fall off on their own. Follow Up Care Please Follow Up With: Jay Naik MD When: Please call to schedule 2 week follow up appointment. [phone] Test Results: Test results from this visit will be discussed in further detail at your follow-up appointment, if applicable. Discharge Plan Admission Attending Provider: Jay Naik Primary Care Provider: Antonietta Palacios GOVERNMENT AFFAIRS SPECIALIST Instructions Print Language: Slovenian Discharge Orders/Prescriptions Prescriptions: New oxycodone 5 mg Tablet 5 - 10 mg PO Q4H PRN PRN (Reason: Pain Score 4-10) 5 Days Qty: 14 0RF No Action duloxetine 30 mg capsule,delayed release(DR/EC) 30 mg PO QDAY amitriptyline 25 mg tablet 25 mg PO QHS fluticasone propionate 44 mcg/actuation HFA aerosol inhaler 2 puff inhalation DAILY Rx Instructions: administer with spacer cyclobenzaprine 10 mg tablet 10 mg PO DAILY PRN (Reason: muscle spasm) albuterol sulfate [Ventolin HFA] 90 mcg/actuation HFA aerosol inhaler 2 inh inhalation DAILY pantoprazole 40 mg tablet,delayed release (DR/EC) 40 mg PO QAM PRN (Reason: acid reflux) Referrals / Follow Up: Antonietta Palacios GOVERNMENT AFFAIRS SPECIALIST, GOVERNMENT AFFAIRS SPECIALIST-C [Primary Care Provider] - Disposition Disposition (needs filled in before D/C Order can be placed): Home, Self Care
--- NOTE | 2024-06-07 13:39 | OP.PCM_ITS ---
Operative Report (Standard) Operative Information Surgery/Procedure Performed: Laparoscopic cholecystectomy with cholangiograms Surgeon: Jay Naik Date of Procedure: 06/07/24 Procedure Start Time: 12:53 Procedure Stop Time: 13:42 Pre-Operative Diagnosis: Biliary dyskinesia Post-Operative Diagnosis: Biliary dyskinesia Select all DRAINS/GRAFTS/IMPLANTS that apply: None Type of Anesthesia: General/Regional Estimated Blood Loss: 5 Specimen collected: Yes Description of specimen(s) removed: Gallbladder Description of surgery: After obtaining informed consent patient was brought back to the operating room. General anesthesia was induced. The abdomen was prepped and draped in usual sterile fashion. A small midline incision was made superior to the umbilicus and deepened to the level of fascia. The fascia was elevated and incised. Next the peritoneum was elevated and incised in the same fashion. Finger sweep was performed and the Hernandez trocar was placed into the abdomen. The balloon was inflated. The abdomen was inflated to 15 mmHg. Next a camera was introduced into the abdomen and the abdomen was inspected. Next under direct visualization three 5-mm ports were placed one subxiphoid and 2 subcostal. Next the gallbladd er was elevated and retracted toward the right shoulder. The peritoneum was stripped from the gallbladder. The infundibulum was located and retracted laterally. Next the triangle of Calot was dissected and the cystic duct and cystic artery were identified. Cholangiograms were performed. The Gamez clamp was used to clamp across the infundibulum and the catheter needle was inserted into the gallbladder. Under fluoroscopy contrast was instilled into the gallbladder and the common duct, cystic duct as well as proximal hepatic ducts were identified. There was good filling of the duodenum. There were no filling defects noted in the common bile duct. The clamp was removed as well as the needle and the infundibulum was grasped once more. Three hemolock clips were placed across the cystic duct. The cystic duct was then divided leaving 2 clips on the stump. The cystic artery was clipped and divided in the same fashion. The hook cautery was then used to take the gallbladder off of the gallbladder bed. Hemostasis was obtained. Gallbladder fossa was irrigated and no active bleeding or bile leakage was noted. Next the camera was introduced in the subxiphoid port. An Endopouch bag was placed through the umbilical port and the gallbladder was placed into it. The gallbladder was then removed through the umbilical incision. The camera was then reinserted through the umbilical port. The gallbladder fossa was inspected once more and noted to be hemostatic with no leaking bile. The abdomen was suctioned dry. The 5 mm ports were removed under direct visualization. The umbilical port was then removed and the air was removed from the abdomen. Next using an 0 Vicryl suture the umbilical fascia was closed in a [id number] fashion. The umbilical port site was irrigated local anesthetic was administered to all the incisions. All the incisions were closed with interrupted subcuticular 4-0 Monocryl sutures followed by Steri- Strips and dressings. The patient was awoken and taken to PACU in stable condition. Surgical Findings: Normal IOC Lactation Nurse alum plant operator: Yes Insole And Heel Stiffener: Kelsey Cummings Tasks completed by first assistant: Opening & closing and Retracting Complications Complications: No Admit VTE Documentation VTE Mechan Device Prophylaxis: SCD's
--- NOTE | 2024-06-07 13:48 | PCM.POST.ANE ---
Anesthesia: Postop Eval I Current Vital Signs Temperature: 98.2 F Pulse Rate: 90 Blood Pressure: 155/114 Respiratory Rate: 16 Pulse Ox: 93 Oxygen Delivery Method: Room Air Assessment Airway patent: Yes Spontaneous unlabored respirations: Yes Mental status: Awake and Calm nausea: No Vomiting: No Anesthesia Complication: No Fluid Hydration Crystalloid volume administer (ml): 700 Total IV fluid infused: 700 Progress Note Anesthesia document: Postop Eval 1 completed: Yes
--- NOTE | 2024-06-07 14:10 | POSTOPAN2_ITS ---
Anesthesia Postop Eval I Sum Postop Eval Completion status Anesthesia document: Postop Eval 1 completed: Yes Anesthesia Postop Eval I Summary Anesthesia Postop Eval I Summary: Anesthesia Postop Eval I: Assessment Summary Airway patent Yes 06/07/24 13:50 [email or web address] Spontaneous unlabored Yes 06/07/24 13:50 [email or web address] respirations Mental status Awake,Calm 06/07/24 13:50 [email or web address] nausea No 06/07/24 13:50 ENTERTAINMENT [email or web address] Vomiting No 06/07/24 13:50 [email or web address] Anesthesia Postop Eval I: Fluid Summary Crystalloid volume administer 700 06/07/24 13:50 [email or web address] (ml) Colloids volume administered ( ml) Blood Product volume administered (ml) Total IV fluid infused 700 06/07/24 13:50 [email or web address] Anesthesia Postop Eval I: Summary Notes Anesthesia Complication No 06/07/24 13:50 [email or web address] Anesthesia Complication Comment: Post-operative progress note Anesthesia: Postop Eval II Evaluation Mental status: Awake Pain Level: 0 nausea: No Vomiting: No
--- NOTE | 2024-06-07 14:10 | PCM.POSTANE2 ---
Anesthesia Postop Eval I Sum Postop Eval Completion status Anesthesia document: Postop Eval 1 completed: Yes Anesthesia Postop Eval I Summary Anesthesia Postop Eval I Summary: Anesthesia Postop Eval I: Assessment Summary Airway patent Yes 06/07/24 13:50 [email or web address]/[email or web address] Spontaneous unlabored Yes 06/07/24 13:50 TESTER/LIFT [email or web address] respirations Mental status Awake,Calm 06/07/24 13:50 [email or web address]/[email or web address] nausea No 06/07/24 13:50 TESTER/LIFT [email or web address] Vomiting No 06/07/24 13:50 TESTER/[email or web address] Anesthesia Postop Eval I: Fluid Summary Crystalloid volume administer 700 06/07/24 13:50 TESTER/[email or web address] (ml) Colloids volume administered ( ml) Blood Product volume administered (ml) Total IV fluid infused 700 06/07/24 13:50 TESTER/[email or web address] Anesthesia Postop Eval I: Summary Notes Anesthesia Complication No 06/07/24 13:50 [email or web address] Anesthesia Complication Comment: Post-operative progress note Anesthesia: Postop Eval II Evaluation Mental status: Awake Pain Level: 0 nausea: No Vomiting: No
[2024-06-07] MEDS: Acetaminophen 325 MG Tablet 650 MG PO (15:32)
[2024-06-07] MEDS: oxyCODONE 5 MG Tablet PO (15:32)
== END 2024-06-07 16:44 | disposition home or self-care (01) ==
LOC: SDC 10:55 → AC 10:56
PROVIDERS: PCP Registered Nurse; Referring Provider Surgery; Visit Provider Surgery
PROC: (CPT 47610; principal; 2024-06-07 12:10)
DX: K81.1 Chronic cholecystitis (principal); K82.8 Other specified diseases of gallbladder; K83.8 Other specified diseases of biliary tract; F32.A Depression, unspecified; F41.9 Anxiety disorder, unspecified; J45.909 Unspecified asthma, uncomplicated; Z79.899 Other long term (current) drug therapy; Z79.51 Long term (current) use of inhaled steroids; Z87.891 Personal history of nicotine dependence
CPT/HCPCS: 47563; 00790; 74300; 76000; 88304; 93005; J7120; A4216; J2405

== ENCOUNTER → 2024-06-17 | Outpatient (CLI) | payer MEDICAID, SELFPAY ==
[2024-06-17 09:41] LABS: Absolute Lymphocyte Count 1.49 X10^3/uL (0.83-4.51); Absolute Neutrophil Count 3.7 X10^3/uL (2.0-7.7); Basophil# 0.05 X10^3/uL; Basophil% 0.9 % (0-1); Eosinophils% 1.7 % (0-5); Hematocrit 46.2 % (40-54); Hemoglobin 15.6 g/dL (13.0-16.5); Lymphocyte # 1.49 X10^3/ul (0.83-4.51); Lymphocyte % 25.4 % (19-41); Mean Corp Hgb Conc 33.8 g/dL (32-36); Mean Corpuscular Hgb 28.8 pg (27.0-32.0); Mean Corpuscular Volume 85.2 fL (80-94); Mean Platelet Vol. 9.6 fl (6.2-12.0); Monocyte# 0.48 X10^3/uL; Monocyte% 8.2 % (0-10); NRBC Flagged by Analyzer 0 % (0-5); Neutrophil # 3.66 X10^3/uL (2.7-7.7); Neutrophil % 62.4 % (47-70); Platelet Count 215 K/mm3 (150-450); RBC Distribution Width CV 12.5 % (11.6-14.6); RBC Distribution Width SD 38.4 fl (35.1-43.9); Red Blood Count 5.42 M/mm3 (4.6-6.2); White Blood Count 5.9 K/mm3 (4.4-11.0)
[2024-06-17 09:42] LABS: International Normalized Ratio 1.1; Prothrombin Time (Protime)PT. 13.7 SECONDS (11.7-14.9)
[2024-06-17 10:09] LABS: Hemoglobin A1c 5.4 % (3.8-5.6)
[2024-06-17 10:22] LABS: ALB/GLOB Ratio 1.1 RATIO (0.9-2.4); AST(SGOT) 46 U/L (15-37); Alanine Aminotransfer ALT/SGPT 141 U/L (16-61); Albumin, Serum 4.1 g/dL (3.2-5.0); Alkaline Phosphatase 77 U/L (45-117); Anion Gap 7 (5-15); BUN 13 mg/dL (7-18); BUN/Creat Ratio 13.6 RATIO (10-20); Bilirubin, Direct 0.14 mg/dL (0.00-0.30); CRP 4.56 mg/L (0.0-3.0); Calcium,Total 9.6 mg/dL (8.5-10.1); Chloride 107 mmol/L (98-107); Cholesterol 265 mg/dL (200); Creatinine, Serum 0.96 mg/dL (0.70-1.30); EST Glomerular Filtration Rate 104 mL/min (>60); Est Glom Filt Rate - Afr Amer 125 mL/min (>60); Ferritin 167 ng/mL (26-388); Globulin 3.9 g/dL (2.2-4.2); Glucose 101 mg/dL (74-106); High Density Lipoprotein 38 mg/dL; Iron 101 ug/dL (65-175); Iron Binding Capacity,Total 335 ug/dL (250-450); PERCENT IRON SATURATION 30.1 % (15.0-55.0); Potassium 4.2 mmol/L (3.5-5.1); Sodium Level 137 mmol/L (136-145); T4 Free Direct 0.84 ng/dL (0.76-1.46); Triglycerides 411 mg/dL
[2024-06-19 09:10] LABS: HIV - WCH Non-Reactive (Nonreactive)
[2024-06-19 15:07] LABS: ANTINUCLEAR ANTIBODIES DIRECT Negative (Negative); Anti-Mitochondrial AB <20.0 Units (0.0-20.0)
[2024-06-22 07:09] LABS: Anti-Smooth Muscle ABS 3 Units (0-19); Ceruloplasmin 23.3 mg/dL (16.0-31.0); Copper, Serum or Plasma 99 ug/dL (63-121); Cytoplasmic Ab (C-ANCA) <1:20 titer (Neg:<1:20); HEPATITIS B SURFACE AG Negative (Negative); Hep C Antibodies Non Reactive (Non Reactive); Hepatitis A IgM Antibody Negative (Negative); Hepatitis B Core AB IgM Negative (Negative); Perinuclear Ab (P-ANCA) <1:20 titer (Neg:<1:20)
== END | disposition home or self-care (01) ==
PROVIDERS: PCP Registered Nurse; Referring Provider Internal Medicine; Visit Provider Internal Medicine
DX: K80.10 Calculus of gallbladder with chronic cholecystitis without obstruction (principal); K21.9 Gastro-esophageal reflux disease without esophagitis; K82.8 Other specified diseases of gallbladder
CPT/HCPCS: 86225; 86235 ×5; 36415; 76705; 76981; 80053; 80061; 80074; 82248; 82390; 82525; 82728; 83036; 83516; 83540; 83550; 84439; 84443; 85025; 85610; 86037; 86038; 86140; 86703

== ENCOUNTER → 2024-08-29 | Outpatient (CLI) | payer MEDICAID, SELFPAY ==
[2024-08-29 11:56] LABS: Erythrocyte Sedimentation Rate 4 mm/hr (0-20)
[2024-08-29 13:23] LABS: ALB/GLOB Ratio 1.2 RATIO (0.9-2.4); AST(SGOT) 36 U/L (15-37); Alanine Aminotransfer ALT/SGPT 103 U/L (16-61); Albumin, Serum 4.3 g/dL (3.2-5.0); Alkaline Phosphatase 78 U/L (45-117); Anion Gap 9 (5-15); BUN 15 mg/dL (7-18); BUN/Creat Ratio 13.4 RATIO (10-20); CRP < 2.90 mg/L (0.0-3.0); Calcium,Total 10.4 mg/dL (8.5-10.1); Chloride 105 mmol/L (98-107); Cholesterol 286 mg/dL (200); Creatinine, Serum 1.12 mg/dL (0.70-1.30); EST Glomerular Filtration Rate 86 mL/min (>60); Est Glom Filt Rate - Afr Amer 104 mL/min (>60); Globulin 3.7 g/dL (2.2-4.2); Glucose 100 mg/dL (74-106); High Density Lipoprotein 38 mg/dL; LDH 198 U/L (87-241); Potassium 4.6 mmol/L (3.5-5.1); Sodium Level 138 mmol/L (136-145); Triglycerides 287 mg/dL; Very Low Density Lipoprotein 57 mg/dL (5-40)
== END | disposition home or self-care (01) ==
LOC: LAB 11:00
PROVIDERS: PCP Registered Nurse; Referring Provider Internal Medicine Gastroenterology; Visit Provider Internal Medicine Gastroenterology
DX: Z90.49 Acquired absence of other specified parts of digestive tract (principal); E78.00 Pure hypercholesterolemia, unspecified
CPT/HCPCS: 36415; 80053; 80061; 83615; 85652; 86140

== ENCOUNTER → 2024-09-26 | Outpatient (CLI) | payer MEDICAID, SELFPAY ==
[2024-09-26] VITALS (15 sets, daily range): BP systolic 123–163; BP diastolic 75–116; PULSE 60–99; RESP 14–22; TEMP 36.6; O2SAT 94–99; BMI 35.0
--- NOTE | 2024-09-26 | LIVB_PTH ---
PATIENT: LOGAN NEGRO LOC: [place] U#:[id number] AGE/SX: 24/M ROOM: RE09/26/[address]: Dr. Brock Judge DO : 2000 BED: DIS: 09/26/2024 SPEC #: [id number] RECD: 09/26/24 08:24 STATUS: CHRISTIAN ASHLEIGH #: [id number] DEEPA: 09/26/24 00:[address]: Brock Judge DEPT: SURGICAL PATHOLOGY RECD BY: Opal Bush ENTERED: 09/26/24 09:42 SP TYPE: LIVER BX OTHR DR: Antonietta Palacios, [employer] MECHANIC-C Tissues: Liver, NOS Procedures: PAS with Diastase (control) Trichrome (control) Special Stain Group I PAS Stain (control) Surgery Specimen Level V Retic (control) Iron Stain (control) HEADER OPERATION: CT guided liver biopsy PRE-OP DIAGNOSIS: Elevated liver enzymes TISSUE SUBMITTED: 18 gauge x 4 cores MICROSCOPIC DIAGNOSIS Liver, CT guided core biopsy: Liver parenchymal tissue with extensive macro- and microvesicular steatosis. See microscopic description and comment. KATINA 09/27/2024 MICROSCOPIC DESCRIPTION Slides are reviewed. The specimen shows liver parenchymal tissue with preserved lobular architecture. Hepatocytes show extensive macro and microvesicular steatosis. Lobular inflammation is not seen. Portal areas do not show significant inflammation. Interface inflammation is not seen. Iron stain shows absent iron. Reticulin stain highlights the preserved lobular architecture. Trichrome stain does not show increased portal or periportal fibrosis. PAS stain with and without diastase do not show any abnormal accumulation of protein. All stains are performed with appropriate matched controls. GROSS DESCRIPTION Received in fixative is one container labeled with the patient's name and designated Liver biopsy. The specimen consists of cores of clemens tissue which are numerous of different sizes ranging from 2mm to 1.2cm. All of the tissue cores are <1mm in diameter and the material aggregates to at most 3-4mm. The entire specimen is submitted in one cassette. 09/26/2024 TC:5 CPT:15559,50102s4
--- NOTE | 2024-09-26 06:56 | CT_ITS ---
EXAM: CT-guided percutaneous biopsy of the right lobe of the liver. CLINICAL HISTORY: Elevated liver enzymes. COMPARISON: None. TECHNIQUE: The procedure as well as the benefits and possible complications including infection and bleeding were explained to the patient. Informed consent was obtained. The patient was in the supine position. A location in the right lobe of the liver was selected. Conscious sedation was performed. The patient received 2 mg of Versed and 50 mcg of fentanyl intravenously. Conscious sedation was started at 8:09 a.m. and terminated at 8:26 a.m.. The patient was independently monitored by the department nurse. The overlying skin was prepped and draped in usual sterile fashion. Following local anesthetic infiltration, 4 core biopsies of the right lobe of the liver was performed with an 18 gauge core biopsy needle system. The specimen were sent to the laboratory. FINDINGS: Successful percutaneous core biopsy of the right lobe of the liver. CT/Biopsy/Inj or Needle Placement IMPRESSION: Successful percutaneous core biopsy of the right lobe of the liver utilizing 18 gauge core biopsy needle system. Conscious sedation was performed. The patient tolerated the procedure well. No immediate complication was observ ed. Reading Location: [place] [id number]
[2024-09-26 07:13] LABS: Platelet Count 234 K/mm3 (150-450)
[2024-09-26 07:26] LABS: Partial Thromboplast Time 31.5 Seconds (24.1-36.2)
[2024-09-26] MEDS: Midazolam 2 MG/2 ML Syringe IV ×2 (08:09→08:18)
[2024-09-26] MEDS: fentaNYL 100 MCG/2 ML Ampul IV ×2 (08:10→08:35)
[2024-09-26] MEDS: Lidocaine 2% (20 ml mdv) 20 ML Vial INFILT (08:20)
--- NOTE | 2024-09-26 08:35 | NURSING ---
PATIENT IN SEVERE PAIN, STATES HAVING TROUBLE BREATHING. OXYGEN REMAINED MID 90'S. ENCOURAGED TO SLOW BREATHING DOWN, IN THROUGH NOSE OUT THROUGH MOUTH. SPOKE WITH DOCTOR CASAREZ INSTRUCTED TO GIVE 50 MCG OF FENTANYL AND 30 MG OF TORADOL. WILL CONTINUE TO MONITOR.
[2024-09-26] MEDS: Ketorolac 30 MG/ML Syringe IV (08:42)
== END | disposition home or self-care (01) ==
LOC: CT 06:53
PROVIDERS: PCP Registered Nurse; Referring Provider Internal Medicine Gastroenterology; Visit Provider Internal Medicine Gastroenterology
DX: R74.8 Abnormal levels of other serum enzymes (principal); K76.0 Fatty (change of) liver, not elsewhere classified
CPT/HCPCS: 47000; 36415; 77012; 85049; 85610; 85730; 88307; 88312; 99156; A4216